=== PATIENT | female | born 1965 | race Caucasian/White ===

== ENCOUNTER 2019-01-04 21:30 | Inpatient (IN) | payer MEDICAID, OTHER ==
[2019-01-04] MEDS ORDERED: ALBUTEROL SULFATE 0.083% NEB 2.5 MG/3 ML AMPUL NEB ONE ×2 (21:38)
[2019-01-04] MEDS ORDERED: MAGNESIUM SULFATE/D5W 1 GM/100 ML RTUPB IV ONE (21:42)
--- NOTE | 2019-01-04 21:45 | ER Document Report ---
ED General - General Stated Complaint: RESPIRATORY DISTRESS Time Seen by Provider: 01/04/19 21:42 Mode of Arrival: Medic Information source: Patient, Relative, Emergency Med Personnel Notes: 53-year-old female with hypertension, COPD, coronary artery disease, type 2 diabetes presents via EMS in respiratory distress. EMS reports upon their arrival patient had an O2 saturation of 56%. Patient did receive 3 breathing treatments, 125 mg of Solu-Medrol and 2 g of magnesium prior to arrival. EMS did attempt to place patient on BiPAP but she was not tolerant of this. She does report a new productive cough with green-yellow sputum. - HPI Onset: Just prior to arrival Onset/Duration: Sudden Quality of pain: No pain Severity: None Pain Level: Denies Associated symptoms: Productive cough, Shortness of breath. denies: Chest pain, Leg swelling, Nausea Exacerbated by: Walking, Coughing Relieved by: Denies Similar symptoms previously: Yes Recently seen / treated by doctor: No - Related Data Allergies/Adverse Reactions: levothyroxine sodium [From Synthroid] Allergy (Verified 06/01/13 07:45) methotrexate [Methotrexate] Allergy (Verified 06/01/13 07:45) yellow dye [Yellow Dye] Allergy (Verified 06/01/13 07:45) azithromycin [Azithromycin] Adverse Reaction (Verified 06/01/13 07:45) Past Medical History - General Information source: Patient, [facility] Records - Social History Smoking Status: Current Every Day Smoker Cigarette use (# per day): Yes - 10 Smoking Education Provided: Yes - Smoking cessation counseling was provided for 4 minutes at the bedside Frequency of alcohol use: None Drug Abuse: None Lives with: Spouse/Significant other Family History: Arthritis, CAD, CVA, DM, Hyperlipidemia, Hypertension, Malignancy, Thyroid Disfunction - Past Medical History Cardiac Medical History: Reports: Hx Coronary Artery Disease, Hx DVT, Hx Hypertension Denies: Hx Heart Attack Pulmonary Medical History: Reports: Hx Asthma, Hx COPD Denies: Hx Bronchitis, Hx Pneumonia, Hx Tuberculosis Neurological Medical History: Reports: Hx Migraine. Denies: Hx Cerebrovascular Accident, Hx Seizures Endocrine Medical History: Reports: Hx Diabetes Mellitus Type 2, Hx Hypothyroidism GI Medical History: Reports: Hx Gastroesophageal Reflux Disease Musculoskeletal Medical History: Denies Hx Arthritis, Reports Hx Musculoskeletal Deformity - scoliosis, Reports Hx Musculoskeletal Trauma Psychiatric Medical History: Reports: Hx Anxiety, Hx Bipolar Disorder, Hx Depression, Hx Obsessive Compulsive Disorder Traumatic Medical History: Reports: Hx Fractures Past Surgical History: Reports: Hx Abdominal Surgery, Hx Section - x 2, Hx Cholecystectomy, Hx Oral Surgery, Hx Tubal Ligation. Denies: Hx Pacemaker - Immunizations Immunizations up to date: No Hx Diphtheria, Pertussis, Tetanus Vaccination: No Review of Systems - Review of Systems Notes: REVIEW OF SYSTEMS: CONSTITUTIONAL : Denies fever, chills, or sweats. Denies recent illness. Denies weight loss, recent hospitalizations. EENT: Denies visual changes, eye pain. Denies sore throat, oral lesions, difficulty swallowing. CARDIOVASCULAR: Denies chest pain. Denies palpitations. Denies lower extremity edema. RESPIRATORY: + cough. + shortness of breath, + wheezing. GASTROINTESTINAL: Denies abdominal pain or distention. Denies nausea, vomiting, or diarrhea. Denies blood in vomitus, stools, or per rectum. Denies black, tarry stools. Denies constipation. GENITOURINARY: Denies difficulty urinating, painful urination, frequency, blood in urine, or vaginal discharge. MUSCULOSKELETAL: Denies back or neck pain or stiffness. Denies joint pain or swelling. SKIN: Denies rash, lesions or sores. HEMATOLOGIC : Denies easy bruising or bleeding. LYMPHATIC: Denies swollen glands. NEUROLOGICAL: Denies confusion or altered mental status. Denies loss of consciousness. Denies dizziness or lightheadedness. Denies headache. Denies weakness or paralysis. Denies problems difficulty with ambulation, slurred speech. Denies sensory loss, numbness, or tingling. Denies seizures. PSYCHIATRIC: Denies anxiety or stress. Denies depression, suicidal ideation, or homicidal ideation. Denies visual or auditory hallucinations. Physical Exam - Vital signs Vitals: Pulse Ox 88 L 01/04/19 21:34 - Notes Notes: PHYSICAL EXAMINATION: GENERAL: Well-appearing, well-nourished and in no acute distress. HEAD: Atraumatic, normocephalic. EYES: Pupils equal round and reactive to light, extraocular movements intact, conjunctiva are normal. ENT: Nares patent, oropharynx clear without exudates. Moist mucous membranes. NECK: Normal range of motion, supple without lymphadenopathy LUNGS: Increased work of breathing, accessory muscle use, on BiPAP, diffuse wheezing in all lung gutierrez. HEART: Regular rate and rhythm without murmurs ABDOMEN: Soft, nontender, nondistended abdomen. No guarding, no rebound. No masses appreciated. Female : deferred Musculoskeletal: Normal range of motion, no pitting or edema. No cyanosis. NEUROLOGICAL: Cranial nerves grossly intact. Normal speech, normal gait. Normal sensory, motor exams PSYCH: Normal mood, normal affect. SKIN: Warm, Dry, normal turgor, no rashes or lesions noted. Course - Re-evaluation Re-evalutation: 01/05/19 01:54 Laboratory 01/04/19 01/04/19 01/04/19 22:10 22:10 22:10 WBC 6.9 RBC 4.91 Hgb 14.9 Hct 44.5 MCV 91 MCH 30.4 MCHC 33.5 RDW 13.1 Plt Count 469 H Seg Neutrophils % 67.6 Lymphocytes % 17.4 Monocytes % 14.8 H Eosinophils % 0.0 Basophils % 0.2 Absolute Neutrophils 4.7 Absolute Lymphocytes 1.2 Absolute Monocytes 1.0 Absolute Eosinophils 0.0 Absolute Basophils 0.0 Carbonic Acid HCO3/H2CO3 Ratio ABG pH ABG pCO2 ABG pO2 ABG HCO3 ABG Total CO2 ABG O2 Saturation ABG Base Excess FiO2 Sodium 135.9 L Potassium 3.9 Chloride 88 L Carbon Dioxide 38 H Anion Gap 10 BUN 22 H Creatinine 0.67 Est GFR ( Amer) > 60 Est GFR (Non-Af Amer) > 60 Glucose 124 H Calcium 8.5 Total Bilirubin 0.9 Direct Bilirubin 0.5 H Neonat Total Bilirubin Not Reportable Neonat Direct Bilirubin Not Reportable Neonat Indirect Bili Not Reportable AST 15 ALT 18 Alkaline Phosphatase 83 Creatine Kinase 79 CK-MB (CK-2) 1.23 Troponin I 0.030 NT-Pro-B Natriuret Pep 92202 H Total Protein 6.8 Albumin 3.4 L Urine Color Urine Appearance Urine pH Ur Specific Horn[place] Urine Protein Urine Glucose (UA) Urine Ketones Urine Blood Urine Nitrite Urine Bilirubin Urine Urobilinogen Ur Leukocyte Esterase Urine WBC (Auto) Urine RBC (Auto) U Hyaline Cast (Auto) Squamous Epi Cells Auto Urine Mucus (Auto) Urine Ascorbic Acid 01/04/19 01/05/19 22:24 00:25 WBC RBC Hgb Hct MCV MCH MCHC RDW Plt Count Seg Neutrophils % Lymphocytes % Monocytes % Eosinophils % Basophils % Absolute Neutrophils Absolute Lymphocytes Absolute Monocytes Absolute Eosinophils Absolute Basophils Carbonic Acid 1.97 H HCO3/H2CO3 Ratio 20:1 ABG pH 7.40 ABG pCO2 65.6 H ABG pO2 64.3 L ABG HCO3 39.4 H ABG Total CO2 41.5 H ABG O2 Saturation 91.8 L ABG Base Excess 10.7 FiO2 70% Sodium Potassium Chloride Carbon Dioxide Anion Gap BUN Creatinine Est GFR ( Amer) Est GFR (Non-Af Amer) Glucose Calcium Total Bilirubin Direct Bilirubin Neonat Total Bilirubin Neonat Direct Bilirubin Neonat Indirect Bili AST ALT Alkaline Phosphatase Creatine Kinase CK-MB (CK-2) Troponin I NT-Pro-B Natriuret Pep Total Protein Albumin Urine Color YELLOW Urine Appearance SLIGHTLY-CLOUDY Urine pH 5.0 Ur Specific [place] 1.020 Urine Protein NEGATIVE Urine Glucose (UA) NEGATIVE Urine Ketones NEGATIVE Urine Blood SMALL H Urine Nitrite NEGATIVE Urine Bilirubin NEGATIVE Urine Urobilinogen 2.0 H Ur Leukocyte Esterase NEGATIVE Urine WBC (Auto) 4 Urine RBC (Auto) 3 U Hyaline Cast (Auto) 39 Squamous Epi Cells Auto 1 Urine Mucus (Auto) FEW Urine Ascorbic Acid NEGATIVE Chest X-Ray 01/04/19 21:37 IMPRESSION: No evidence of acute cardiopulmonary disease. Temp Pulse Resp BP Pulse Ox 98.6 F 24 H 127/85 H 92 01/04/19 21:37 01/05/19 00:50 01/05/19 00:50 01/05/19 00:50 53-year-old female with COPD presents via EMS in respiratory distress. Per EMS patient was found with an O2 saturation of 56%. Patient does report a new productive cough. She does continue to smoke. Denies any history of heart failure. Vital signs reviewed upon arrival and patient is hypoxic, tachypneic. Patient has diffuse expiratory wheezing and diminished breath sounds in the lower lung gutierrez. Patient was placed on BiPAP and continuous nebulizer treatments were performed. Bedside ultrasound was performed and showed no pericardial effusion but did show diffuse B-lines indicative of interstitial edema. Diuresis was initiated with 40 mg of IV Lasix. Patient was placed on our BiPAP and Nitropaste was placed. On reevaluation patient is breathing more comfortably. She is able to speak in full sentences now. CBC is without leukocytosis or anemia. CMP shows no electrolyte abnormalities. BNP is 14,000. ABG shows hypoxia, hypercapnia. Patient will be admitted to the IMCU by Dr. Mackay for new onset congestive heart failure with respiratory failure. 01/05/19 01:58 - Vital Signs Vital signs: Temp Pulse Resp BP Pulse Ox 98.6 F 24 H 127/85 H 92 01/04/19 21:37 01/05/19 00:50 01/05/19 00:50 01/05/19 00:50 - Laboratory Result Diagrams: 01/04/19 22:10 01/04/19 22:10 Laboratory results interpreted by me: 01/04/19 01/04/19 01/04/19 22:10 22:10 22:10 Plt Count 469 H Monocytes % 14.8 H Carbonic Acid ABG pCO2 ABG pO2 ABG HCO3 ABG Total CO2 ABG O2 Saturation Sodium 135.9 L Chloride 88 L Carbon Dioxide 38 H BUN 22 H Glucose 124 H Direct Bilirubin 0.5 H NT-Pro-B Natriuret Pep 55156 H Albumin 3.4 L Urine Blood Urine Urobilinogen 01/04/19 01/05/19 22:24 00:25 Plt Count Monocytes % Carbonic Acid 1.97 H ABG pCO2 65.6 H ABG pO2 64.3 L ABG HCO3 39.4 H ABG Total CO2 41.5 H ABG O2 Saturation 91.8 L Sodium Chloride Carbon Dioxide BUN Glucose Direct Bilirubin NT-Pro-B Natriuret Pep Albumin Urine Blood SMALL H Urine Urobilinogen 2.0 H - Diagnostic Test Radiology reviewed: Image reviewed, Reports reviewed - EKG Interpretation by Me EKG shows normal: Sinus rhythm Rate: Tachycardia Rhythm: NSR When compared to previous EKG there are: Previous EKG unavailable Critical Care Note - Critical Care Note Total time excluding time spent on procedures (mins): 35 - Minutes of critical care time spent in direct contact evaluating and reevaluating the patient, treating symptoms, reviewing labs and studies and speaking with family and consultants excluding any procedures Discharge - Discharge Clinical Impression: New onset of congestive heart failure, Tobacco dependence, Acute respiratory failure with hypoxia and hypercapnia Acute respiratory failure Qualifiers: Respiratory failure complication: hypoxia Qualified Code(s): J96.01 - Acute respiratory failure with hypoxia COPD (chronic obstructive pulmonary disease) Qualifiers: COPD type: unspecified COPD Qualified Code(s): J44.9 - Chronic obstructive pulmonary disease, unspecified Condition: Fair Disposition: ADMITTED INPATIENT Admitting Provider: Codie (Hospitalist) Unit Admitted: IMCU
--- NOTE | 2019-01-04 22:20 | RADIOLOGY REPORT (SQ) ---
EXAM DESCRIPTION: XR CHEST 1 VIEW COMPLETED DATE/TME: 01/04/2019 21:37 CLINICAL HISTORY: 53 years, Female, respiratory distress COMPARISON: None. EXAM DESCRIPTION: CLINICAL HISTORY: respiratory distress COMPARISON: None. FINDINGS: Single view of the chest is submitted. Cardiac silhouette is normal. There is atelectasis at the left lung base with no definite consolidation. The right lung is clear. No acute bony abnormality. There is no significant pulmonary vascular engorgement. IMPRESSION: No evidence of acute cardiopulmonary disease.
[2019-01-04 22:41] LABS: ABSOLUTE LYMPHOCYTES (AUTO) 1.2 10^3/uL (0.5-4.7); ABSOLUTE NEUT (AUTO) 4.7 10^3/uL (1.7-8.2); BASOPHILS % (AUTO) 0.2 % (0-2); HEMATOCRIT 44.5 % (36.0-47.0); HEMOGLOBIN 14.9 g/dL (12.0-15.5); LYMPHOCYTES % (AUTO) 17.4 % (13-45); MEAN CORPUSCULAR HEMOGLOBIN 30.4 pg (27.0-33.4); MEAN CORPUSCULAR HGB CONC 33.5 g/dL (32.0-36.0); MEAN CORPUSCULAR VOLUME 91 fl (80-97); MONOCYTES % (AUTO) 14.8 % (3-13); PLATELET COUNT 469 10^3/uL (150-450); RED BLOOD COUNT 4.91 10^6/uL (3.72-5.28); RED CELL DISTRIBUTION WIDTH 13.1 % (11.5-14.0); SEGMENTED NEUTROPHILS % (AUTO) 67.6 % (42-78); TOTAL CELLS COUNTED % (AUTO) 100 %; WHITE BLOOD COUNT 6.9 10^3/uL (4.0-10.5)
[2019-01-04 22:59] LABS: ARTERIAL BLOOD BASE EXCESS 10.7 mmol/L; ARTERIAL BLOOD H2CO3 1.97 mmol/L (1.05-1.35); ARTERIAL BLOOD HCO3 39.4 mmol/L (20-24); ARTERIAL BLOOD O2 SATURATION 91.8 % (94-98); ARTERIAL BLOOD PCO2 65.6 mmHg (35-45); ARTERIAL BLOOD PO2 64.3 mmHg (80-100); ARTERIAL BLOOD TOTAL CO2 41.5 mmol/L (21-25)
[2019-01-04 23:00] LABS: ARTERIAL BLOOD FIO2 70%
[2019-01-04 23:02] LABS: ALANINE AMINOTRANSFERASE 18 U/L (9-52); ALBUMIN 3.4 g/dL (3.5-5.0); ALKALINE PHOSPHATASE 83 U/L (38-126); ANION GAP 10 (5-19); ASPARTATE AMINO TRANSFERASE 15 U/L (14-36); BILIRUBIN,DIRECT 0.5 mg/dL (0.0-0.4); BILIRUBIN,TOTAL 0.9 mg/dL (0.2-1.3); BLOOD UREA NITROGEN 22 mg/dL (7-20); CALCIUM 8.5 mg/dL (8.4-10.2); CARBON DIOXIDE 38 mmol/L (22-30); CHLORIDE 88 mmol/L (98-107); CREATINE KINASE 79 U/L (30-135); GLUCOSE 124 mg/dL (75-110); POTASSIUM 3.9 mmol/L (3.6-5.0); SODIUM 135.9 mmol/L (137-145); TOTAL PROTEIN 6.8 g/dL (6.3-8.2)
[2019-01-04 23:14] LABS: CREATINE KINASE MB 1.23 ng/mL (<4.55); TROPONIN I 0.03 ng/mL
--- NOTE | 2019-01-04 23:28 | EKG REPORT ---
SEVERITY:- ABNORMAL ECG - SINUS TACHYCARDIA LOW VOLTAGE THROUGHOUT BORDERLINE R WAVE PROGRESSION, ANTERIOR LEADS NONSPECIFIC T ABNORMALITIES, DIFFUSE LEADS : Confirmed by: John Soler 04-Jan-2019 23:28:03
[2019-01-05] MEDS ORDERED: NITROGLYCERIN 2% OINTMENT 1 GM PACKET TP ONE (00:03)
[2019-01-05] MEDS ORDERED: FUROSEMIDE INJ/PF 40 MG/4 ML SDV IV ONE (00:03)
[2019-01-05] MEDS ORDERED: MAG HYDROX/AL HYDROX/SIMETH SUSP 30 ML UDCUP PO PRN (00:31)
[2019-01-05] MEDS ORDERED: ONDANSETRON HCL INJ/PF 4 MG/2 ML SDV IV PRN (00:31)
[2019-01-05] MEDS ORDERED: TEMAZEPAM 15 MG CAPSULE PO PRN (00:31)
[2019-01-05] MEDS ORDERED: LEVALBUTEROL HCL NEB 1.25 MG/3 ML AMPUL NEB PRN (00:31)
[2019-01-05] MEDS ORDERED: MAGNESIUM HYDROXIDE SUSP 30 ML UDCUP PO PRN (00:31)
[2019-01-05] MEDS ORDERED: NICOTINE 21 MG/24 HR PATCH.TD24 TD PRN (00:41)
[2019-01-05] MEDS ORDERED: ACETAMINOPHEN 325 MG TABLET PO PRN (00:41)
[2019-01-05] MEDS ORDERED: MORPHINE SULFATE 10 MG/ML INJ IV PRN ×4 (00:41→00:52)
[2019-01-05 01:10] LABS: APPEARANCE,URINE SLIGHTLY-CLOUDY; BILIRUBIN,URINE NEGATIVE (NEGATIVE); COLOR,URINE YELLOW; GLUCOSE, URINE NEGATIVE (NEGATIVE); KETONES,URINE NEGATIVE (NEGATIVE); LEUKOCYTE ESTERASE,URINE NEGATIVE (NEGATIVE); NITRITE,URINE NEGATIVE (NEGATIVE); PROTEIN,URINE NEGATIVE (NEGATIVE)
[2019-01-05 03:38] LABS: ARTERIAL BLOOD BASE EXCESS 12.1 mmol/L; ARTERIAL BLOOD H2CO3 1.88 mmol/L (1.05-1.35); ARTERIAL BLOOD HCO3 39.6 mmol/L (20-24); ARTERIAL BLOOD O2 SATURATION 92.9 % (94-98); ARTERIAL BLOOD PCO2 62.4 mmHg (35-45); ARTERIAL BLOOD PH 7.42 (7.35-7.45); ARTERIAL BLOOD PO2 66.4 mmHg (80-100); ARTERIAL BLOOD TOTAL CO2 41.5 mmol/L (21-25)
[2019-01-05 03:41] LABS: ARTERIAL BLOOD FIO2 80%
[2019-01-05] MEDS: HEPARIN SOD (PORCINE) 5,000 UNIT/ML 1 ML SYRINGE SUBCUT SCH ×3 (06:09→21:53)
--- NOTE | 2019-01-05 06:49 | PDOC H&P ---
History of Present Illness Admission Date/PCP: 01/05/2019 No PCP Patient complains of: Dyspnea History of Present Illness: TRISTA ESTRELLA is a 53 year old female who presented to the emergency room with a 1 week history of dyspnea. Patient states that her dyspnea began 1 week prior to her admission and was relatively mild but then approximately 1 day ago she noted the onset of moderate to severe orthopnea and a mild to moderate occasional cough productive of small amounts of yellowish-green mucus. Her dyspnea was worsened by activity and alleviated in part by rest, she denies prior similar episodes. Over the course of the day and evening prior to admission her dyspnea rapidly worsened and became severe. EMS was summoned and found her to have an O2 sat of 70% on their arrival. She was treated with supplemental oxygen, albuterol nebulizers as well as IV Solu-Medrol in the ambu [place] on the way to the hospital. Upon arrival in the emergency room the patient was evaluated and found to have a chest x-ray consistent with congestive heart failure as well as a BNP of 14,000. Patient was treated with nitroglycerin paste, intravenous Lasix and BiPAP with significant improvement in her overall status. She was subsequently admitted to the [facility] for further evaluation and treatment. Past Medical History Cardiac Medical History: Reports: Coronary Artery Disease, DVT, Hypertension Denies: Myocardial Infarction Pulmonary Medical History: Reports: Asthma, Chronic Obstructive Pulmonary Disease (COPD) Denies: Bronchitis, Pneumonia, Respiratory Failure, Tuberculosis EENT Medical History: Denies: Cataracts Neurological Medical History: Reports: Migraine Denies: Hemorrhagic CVA, Ischemic CVA, Seizures Endocrine Medical History: Reports: Diabetes Mellitus Type 2, Hypothyroidism, Obesity Denies: Diabetes Mellitus Type 1, Hyperthyroidism Renal/ Medical History: Denies: Chronic Kidney Disease, Nephrolithiasis Malignancy Medical History: Reports: None GI Medical History: Reports: Gastroesophageal Reflux Disease Denies: Cirrhosis, Hepatitis Musculoskeltal Medical History: Denies: Arthritis, Gout Skin Medical History: Denies: Eczema, Psoriasis Psychiatric Medical History: Reports: Bipolar Disorder, Depression Denies: Alcohol Dependency, Substance Abuse, Tobacco Dependency Traumatic Medical History: Reports: None Hematology: Denies: Anemia, Bleeding Tendencies Infectious Medical History: Reports: None Past Surgical History Past Surgical History: Reports: Section - x 2, Cholecystectomy, Tubal Ligation Social History Information Source: Patient Lives with: Family, Spouse/Significant other Smoking Status: Current Every Day Smoker - History of being and extremely heavy smoker (2-1/2 to 3 packs/day) in the past smokes a little bit less now but has n ot been able to smoke for about 1 week due to her dyspnea. Frequency of Alcohol Use: None Hx Recreational Drug Use: No Drugs: None Hx Prescription Drug Abuse: No - Advance Directive Resuscitation Status: Full Code Surrogate healthcare decision maker:: Katie Clayton her daughter Family History Family History: Arthritis, CAD, CVA, DM, Hyperlipidemia, Hypertension, Malignancy, Thyroid Disfunction Parental Family History Reviewed: Yes Children Family History Reviewed: No Sibling(s) Family History Reviewed.: Yes Medication/Allergy Home Medications: Albuterol Sulfate [Ventolin HFA MDI 18 GM] 2 puff IH Q4H 04/21/13 Albuterol Sulfate [Ventolin Hfa] 2 puff IH Q4HP PRN #17 gm 04/21/13 Aripiprazole [Abilify 5 mg Tablet] 5 mg PO BID 04/21/13 Escitalopram Oxalate [Lexapro] 40 mg PO DAILY 04/21/13 Famotidine [Pepcid 10 mg Tablet] 10 mg PO DAILY 04/21/13 Fluticasone/Salmeterol [Advair 100-50 Diskus 28 Dose] 1 inh IH Q12H 04/21/13 Chlorhexidine Gluconate [Peridex 0.12% Oral Rinse 473 ml] 15 ml MM BID #1 bottle 06/01/13 Metoprolol Succinate [Toprol Xl 50 mg Tab.sr] 50 mg PO BID 09/30/13 Ibuprofen [Motrin 800 mg Tablet] 1 tab PO ASDIR PRN 10/18/13 Oxycodone HCl/Acetaminophen [Percocet 5-325 mg Tablet] 1 tab PO ASDIR PRN 10/18/13 Promethazine HCl [Phenergan 25 mg Tablet] 25 mg PO ASDIR PRN 10/18/13 Allergies/Adverse Reactions: levothyroxine sodium [From Synthroid] Allergy (Verified 06/01/13 07:45) methotrexate [Methotrexate] Allergy (Verified 06/01/13 07:45) yellow dye [Yellow Dye] Allergy (Verified 06/01/13 07:45) azithromycin [Azithromycin] Adverse Reaction (Verified 06/01/13 07:45) Review of Systems Constitutional: ABSENT: chills, fever(s) Eyes: ABSENT: visual disturbances, other - Eye pain Ears: ABSENT: hearing changes, other - Ear pain Nose, Mouth, and Throat: ABSENT: mouth pain, sore throat Cardiovascular: PRESENT: as per HPI, dyspnea on exertion, orthropnea. ABSENT: chest pain, edema, palpitations Respiratory: PRESENT: as per HPI, cough, dyspnea, sputum. ABSENT: hemoptysis Gastrointestinal: ABSENT: abdominal pain, constipation, diarrhea, nausea, vomiting Genitourinary: ABSENT: dysuria, hematuria Musculoskeletal: ABSENT: back pain, joint swelling, muscle weakness Integumentary: ABSENT: pruritus, rash Neurological: ABSENT: confusion, convulsions, focal weakness, memory loss, syncope Psychiatric: ABSENT: anxiety, depression Endocrine: ABSENT: cold intolerance, heat intolerance Hematologic/Lymphatic: ABSENT: easy bleeding, easy bruising Physical Exam Vital Signs: Temp Pulse Resp BP Pulse Ox 98.6 F 42 H 92 01/04/19 21:37 01/04/19 21:40 01/04/19 21:40 Intake & Output 01/03/19 01/04/19 01/05/19 23:59 23:59 23:59 Intake Total 100 Balance 100 Weight 83.9 kg General appearance: PRESENT: no acute distress, cooperative, morbidly obese, other - On BiPAP Head exam: PRESENT: atraumatic, normocephalic Eye exam: ABSENT: conjunctival injection, scleral icterus Ear exam: PRESENT: normal external ear exam. ABSENT: bleeding, drainage Mouth exam: PRESENT: dry mucosa, neck supple Neck exam: PRESENT: JVD. ABSENT: thyromegaly, tracheal deviation Respiratory exam: PRESENT: accessory muscle use - Mild use of accessory muscles despite BiPAP, prolonged expiratory phas - Mildly prolonged expiratory phase all gutierrez, rales - Bilateral lower lung gutierrez with fine rales, symmetrical, tachypnea, wheezes - Mild end expiratory wheezes in all gutierrez, other - On BiPAP Cardiovascular exam: PRESENT: RRR. ABSENT: clicks, gallop, rubs Pulses: PRESENT: normal radial pulses, normal dorsalis pedis pul Vascular exam: PRESENT: normal capillary refill. ABSENT: pallor GI/Abdominal exam: PRESENT: normal bowel sounds, soft Rectal exam: PRESENT: deferred Extremities exam: PRESENT: +1 edema - Bilateral 1+ pitting edema of the pretibial surfaces.. ABSENT: pedal edema, tenderness Musculoskeletal exam: ABSENT: deformity, dislocation Neurological exam: PRESENT: alert, oriented to person, oriented to place, oriented to time, CN II-XII grossly intact. ABSENT: motor sensory deficit Psychiatric exam: PRESENT: appropriate affect, normal mood Skin exam: PRESENT: dry, intact, warm. ABSENT: jaundice, rash, urticaria Results Laboratory Results: 01/04/19 22:10 01/04/19 22:10 01/04/19 01/04/19 01/04/19 22:10 22:10 22:24 WBC 6.9 RBC 4.91 Hgb 14.9 Hct 44.5 MCV 91 MCH 30.4 MCHC 33.5 RDW 13.1 Plt Count 469 H Seg Neutrophils % 67.6 Lymphocytes % 17.4 Monocytes % 14.8 H Eosinophils % 0.0 Basophils % 0.2 Absolute Neutrophils 4.7 Absolute Lymphocytes 1.2 Absolute Monocytes 1.0 Absolute Eosinophils 0.0 Absolute Basophils 0.0 Carbonic Acid 1.97 H HCO3/H2CO3 Ratio 20:1 ABG pH 7.40 ABG pCO2 65.6 H ABG pO2 64.3 L ABG HCO3 39.4 H ABG O2 Saturation 91.8 L ABG Base Excess 10.7 FiO2 70% Sodium 135.9 L Potassium 3.9 Chloride 88 L Carbon Dioxide 38 H Anion Gap 10 BUN 22 H Creatinine 0.67 Est GFR ( Amer) > 60 Est GFR (Non-Af Amer) > 60 Glucose 124 H Calcium 8.5 Total Bilirubin 0.9 AST 15 ALT 18 Alkaline Phosphatase 83 Total Protein 6.8 Albumin 3.4 L 01/04/19 01/04/19 22:10 22:10 Creatine Kinase 79 CK-MB (CK-2) 1.23 Troponin I 0.030 NT-Pro-B Natriuret Pep 53443 H Impressions: Chest X-Ray 01/04/19 21:37 IMPRESSION: No evidence of acute cardiopulmonary disease. Assessment and Plan - Diagnosis (1) Acute respiratory failure with hypoxia and hypercapnia Is this a current diagnosis for this admission?: Yes Plan: Patient has obvious COPD her acute problem resulting in respiratory failure seems to be primarily congestive heart failure. BiPAP will be continued and the pulmonary toilet will be used in addition to her treatment in order to also control her underlying COPD. (2) Acute congestive heart failure Qualifiers: Heart failure type: unspecified Qualified Code(s): I50.9 - Heart failure, unspecified Is this a current diagnosis for this admission?: Yes Plan: Patient's congestive heart failure will be treated with continuation of her metoprolol XL 50 mg p.o. twice daily and she will also receive intravenous Lasix 40 mg IV every 12 hours. For acute symptoms of dyspnea she will be treated with morphine sulfate 2 mg IV every hour as needed moderate to severe dyspnea. Additionally for pain she will use morphine sulfate 3 to 7.5 mg IV every 2 hours as needed on a sliding scale basis. (3) Hypertension Qualifiers: Hypertension type: essential hypertension Qualified Code(s): I10 - Essential (primary) hypertension Is this a current diagnosis for this admission?: Yes Plan: Patient will be continued on her usual antihypertensive regiment utilizing Toprol-XL 50 mg p.o. twice daily. Her doses of Toprol XL and additional medications will be added as appropriate for treatment of her hypertension and congestive heart failure. (4) Tobacco dependence Is this a current diagnosis for this admission?: Yes Plan: Smoking cessation is advised and counseled briefly. A Nicotine replacement patches developed with the patient if she desires to use it. (5) Morbid obesity with BMI of 40.0-44.9, adult Is this a current diagnosis for this admission?: Yes Plan: The patient will receive counseling from the registered dietitian for improve ment in her lifestyle choices to generate weight reduction and better control of her hypertension, congestive heart failure and diabetes which she reports. - Time Time Spent with patient: 25-34 minutes Smoking Cessation Education: 3 to 10 minutes Medications reviewed and adjusted accordingly: Yes Anticipated discharge: Home with Homehealth - Inpatient Certification Based on my medical assessment, after consideration of the patient's comorbidities, presenting symptoms, or acuity I expect that the services needed warrant INPATIENT care.: Yes I certify that my determination is in accordance with my understanding of Medicare's requirements for reasonable and necessary INPATIENT services [42 CFR 412.3e].: Yes Medical Necessity: Significant Comorbidiites Make Outpatient Treatment Too Risky, Need Close Monitoring Due to Risk of Patient Decompensation, Need For Continuous Telemetry Monitoring, Need for Nebulizer Therapy and Monitoring of Response, Risk of Complication if Not Cared For in Hospital
[2019-01-05] MEDS: BUDESONIDE NEB 0.5 MG/2 ML AMPUL NEB SCH ×2 (07:58→20:26)
[2019-01-05] MEDS: IPRATROPIUM BROMIDE 0.02% NEB 0.5 MG/2.5 ML AMPUL NEB SCH ×2 (07:58→16:02)
[2019-01-05] MEDS: LEVALBUTEROL HCL NEB 1.25 MG/3 ML AMPUL NEB SCH ×2 (07:59→16:02)
[2019-01-05 08:41] LABS: CREATINE KINASE MB 0.62 ng/mL (<4.55); TROPONIN I 0.025 ng/mL
[2019-01-05] MEDS: DOCUSATE SODIUM 100 MG CAPSULE PO SCH ×2 (09:20→17:00)
[2019-01-05] MEDS: FUROSEMIDE INJ/PF 40 MG/4 ML SDV IV SCH ×2 (09:20→21:53)
[2019-01-05] MEDS: ARIPIPRAZOLE 5 MG TABLET PO SCH ×2 (09:20→21:53)
[2019-01-05] MEDS: METOPROLOL SUCCINATE 50 MG TAB.SR.24H PO SCH ×2 (09:20→21:53)
[2019-01-05] MEDS: FAMOTIDINE 20 MG TABLET PO SCH ×2 (09:21→21:53)
[2019-01-05 13:08] LABS: ARTERIAL BLOOD BASE EXCESS 15.3 mmol/L; ARTERIAL BLOOD FIO2 80%; ARTERIAL BLOOD H2CO3 1.72 mmol/L (1.05-1.35); ARTERIAL BLOOD HCO3 41.7 mmol/L (20-24); ARTERIAL BLOOD O2 SATURATION 96.5 % (94-98); ARTERIAL BLOOD PCO2 57.3 mmHg (35-45); ARTERIAL BLOOD PH 7.48 (7.35-7.45); ARTERIAL BLOOD PO2 82.4 mmHg (80-100); ARTERIAL BLOOD TOTAL CO2 43.5 mmol/L (21-25)
--- NOTE | 2019-01-05 14:59 | Progress Note ---
Provider Note Provider Note: Patient was comfortable on BiPAP. Was sitting up, breathing was unlabored. Receiving diuretics, will monitor response and adjust accordingly. Nurse called to [place] and the patient was looking yellow. Initial labs were fairly unremarkable, but a repeat liver panel has been ordered.
[2019-01-05 15:02] LABS: ALANINE AMINOTRANSFERASE 16 U/L (9-52); ALBUMIN 2.9 g/dL (3.5-5.0); ALKALINE PHOSPHATASE 67 U/L (38-126); ANION GAP 11 (5-19); ASPARTATE AMINO TRANSFERASE 11 U/L (14-36); BILIRUBIN,DIRECT 0.4 mg/dL (0.0-0.4); BILIRUBIN,TOTAL 0.6 mg/dL (0.2-1.3); BLOOD UREA NITROGEN 21 mg/dL (7-20); CALCIUM 8.3 mg/dL (8.4-10.2); CARBON DIOXIDE 38 mmol/L (22-30); CHLORIDE 89 mmol/L (98-107); GLUCOSE 170 mg/dL (75-110); POTASSIUM 3.9 mmol/L (3.6-5.0); TOTAL PROTEIN 6.1 g/dL (6.3-8.2)
[2019-01-05 16:54] LABS: CREATINE KINASE MB 0.4 ng/mL (<4.55); TROPONIN I 0.023 ng/mL
--- NOTE | 2019-01-05 18:13 | XCELERA REPORT ---
[address] [address] Transthoracic Echocardiogram Report Name: TRISTA ESTRELLA Age: 53 yrs Gender: Female : 1965 Patient Status: Inpatient Patient Location: [address] [place] [address] Study Date: 01/05/2019 09:03 AM Procedure: A two-dimensional transthoracic echocardiogram with color flow Doppler was performed. Study Quality: Technically suboptimal. The study was technically difficult with many images being suboptimal in quality. Reason For Study: Acute new onset CHF History: CHF. Ordering Physician: TIESHA BEAVER Performed By: Sahara Keating Interpretation Summary Pro bably no LVH.LVEF appears to be Greater than 65%.Probably no wall motion abnormality .Probably no and no AR.No MS and probably no MR. The left ventricle is normal in size. Doppler measurements suggest impaired left ventricular relaxation, which is associated with grade I/IV or mild diastolic dysfunction The right ventricle is not well visualized secondary to technical limitations Right atrium not well visualized secondary to technical limitations The left atrial size is normal. There is a trace amount of tricuspid regurgitation Right ventricular systolic pressure is normal. RVSP is 23 to 28 mm of Hg , with RA mean of 5 to 10. There is no pericardial effusion. MMode/2D Measurements & Calculations RVDd: 3.2 cm LVIDd: 3.8 cm FS: 28.2 % Ao root diam: 2.6 cm IVSd: 0.61 cm LVIDs: 2.7 cm EDV(Teich): 60.7 ml Ao root area: 5.2 cm2 LVPWd: 0.71 cm ESV(Teich): 27.1 ml EF(Teich): 55.3 % Doppler Measurements & Calculations MV E max coleman: MV dec slope: Ao V2 max: LV V1 max P.3 cm/sec 122.0 cm/sec 2.9 mmHg MV A max coleman: 599.0 cm/sec2 Ao max PG: LV V1 max: 82.8 cm/sec MV dec time: 0.10 sec 5.9 mmHg 85.4 cm/sec MV E/A: 0.73 PA V2 max: TR max coleman: 110.0 cm/sec 214.7 cm/sec PA max P.8 mmHg TR max P.4 mmHg Left Ventricle Pro bably no LVH.LVEF appears to be Greater than 65%.Probably no wall motion abnormality .Probably no and no AR.No MS and probably no MR. The left ventricle is normal in size. Doppler measurements suggest impaired left ventricular relaxation, which is associated with grade I/IV or mild diastolic dysfunction. Right Ventricle The right ventricle is not well visualized secondary to technical limitations. Atria Right atrium not well visualized secondary to technical limitations. The left atrial size is normal. Tricuspid Valve There is a trace amount of tricuspid regurgitation. Right ventricular systolic pressure is normal. RVSP is 23 to 28 mm of Hg , with RA mean of 5 to 10. Effusions There is no pericardial effusion. : TIESHA BEAVER Lakshmi
[2019-01-06] MEDS: IPRATROPIUM BROMIDE 0.02% NEB 0.5 MG/2.5 ML AMPUL NEB SCH ×3 (00:27→15:40)
[2019-01-06] MEDS: LEVALBUTEROL HCL NEB 1.25 MG/3 ML AMPUL NEB SCH ×3 (00:27→15:39)
[2019-01-06] MEDS: HEPARIN SOD (PORCINE) 5,000 UNIT/ML 1 ML SYRINGE SUBCUT SCH ×3 (05:22→21:09)
[2019-01-06 06:28] LABS: HEMOGLOBIN 13.5 g/dL (12.0-15.5); MEAN CORPUSCULAR HEMOGLOBIN 30.1 pg (27.0-33.4); MEAN CORPUSCULAR HGB CONC 33.7 g/dL (32.0-36.0); MEAN CORPUSCULAR VOLUME 90 fl (80-97); PLATELET COUNT 371 10^3/uL (150-450); RED BLOOD COUNT 4.47 10^6/uL (3.72-5.28); RED CELL DISTRIBUTION WIDTH 13.4 % (11.5-14.0); WHITE BLOOD COUNT 7.6 10^3/uL (4.0-10.5)
[2019-01-06 07:04] LABS: FREE T3 2.51 pg/mL (2.77-5.27); FREE T4 (FREE THYROXINE) 1.62 ng/dL (0.78-2.19)
[2019-01-06 07:18] LABS: THYROID STIMULATING HORMONE 1.05 uIU/mL (0.47-4.68)
[2019-01-06] MEDS: BUDESONIDE NEB 0.5 MG/2 ML AMPUL NEB SCH ×2 (08:07→20:03)
[2019-01-06 08:14] LABS: BLOOD UREA NITROGEN 29 mg/dL (7-20); CALCIUM 8.4 mg/dL (8.4-10.2); CHLORIDE 85 mmol/L (98-107); CHOLESTEROL 90.66 mg/dL (0-200); DIRECT LDL 55 mg/dL (<100); GLUCOSE 102 mg/dL (75-110); POTASSIUM 3.9 mmol/L (3.6-5.0); SODIUM 136.3 mmol/L (137-145); TRIGLYCERIDES 87 mg/dL (<150)
[2019-01-06 08:15] LABS: ANION GAP 12 (5-19); CARBON DIOXIDE 39 mmol/L (22-30)
[2019-01-06] MEDS: METOPROLOL SUCCINATE 50 MG TAB.SR.24H PO SCH ×2 (11:04→21:09)
[2019-01-06] MEDS: ARIPIPRAZOLE 5 MG TABLET PO SCH ×3 (11:04→21:09)
[2019-01-06] MEDS: DOCUSATE SODIUM 100 MG CAPSULE PO SCH ×2 (11:04→18:44)
[2019-01-06] MEDS: FAMOTIDINE 20 MG TABLET PO SCH ×2 (11:04→21:09)
[2019-01-06] MEDS: FUROSEMIDE INJ/PF 40 MG/4 ML SDV IV SCH ×2 (11:04→21:09)
--- NOTE | 2019-01-06 16:03 | PDOC PROGRESS REPORT ---
Subjective Progress Note for:: 01/06/19 Subjective:: No adverse events overnight. No new complaints. Vital signs been stable. She still on BiPAP but her FiO2 was less than it was yesterday. She looks like she is breathing more comfortably. Apparently when she comes off BiPAP to take her medications her oxygen saturations will drop below 90%. Reason For Visit: ACUTE CONGESTIVE HEART FAILURE Physical Exam Vital Signs: Temp Pulse Resp BP Pulse Ox 98.2 F 87 20 126/72 H 95 01/06/19 12:04 01/06/19 12:04 01/06/19 12:04 01/06/19 12:04 01/06/19 12:04 Intake & Output 01/05/19 01/06/19 01/07/19 06:59 06:59 06:59 Intake Total 200 350 Output Total 775 1075 Balance -575 -725 Weight 80.9 kg 80.1 kg General appearance: PRESENT: no acute distress, cooperative, disheveled, morbidly obese Respiratory exam: PRESENT: crackles - Bibasilar, decreased breath sounds, symmetrical, unlabored. ABSENT: accessory muscle use, prolonged expiratory phas, rhonchi, tachypnea, wheezes Cardiovascular exam: PRESENT: RRR, +S1, +S2 Pulses: PRESENT: normal carotid pulses Vascular exam: PRESENT: normal capillary refill GI/Abdominal exam: PRESENT: normal bowel sounds, soft. ABSENT: distended, guarding, rebound, tenderness Extremities exam: PRESENT: pedal edema - Trace, +1 edema. ABSENT: clubbing Musculoskeletal exam: PRESENT: normal inspection. ABSENT: deformity Neurological exam: PRESENT: alert, awake, oriented to person, oriented to place. ABSENT: oriented to time, oriented to situation Psychiatric exam: PRESENT: flat affect Skin exam: PRESENT: dry, warm Results Laboratory Results: 01/06/19 05:59 01/06/19 05:59 01/06/19 01/06/19 01/06/19 05:59 05:59 05:59 WBC 7.6 RBC 4.47 Hgb 13.5 Hct 40.0 MCV 90 MCH 30.1 MCHC 33.7 RDW 13.4 Plt Count 371 Sodium 136.3 L Potassium 3.9 Chloride 85 L Carbon Dioxide 39 H Anion Gap 12 BUN 29 H Creatinine 0.74 Est GFR ( Amer) > 60 Est GFR (Non-Af Amer) > 60 Glucose 102 Calcium 8.4 Magnesium 2.2 Triglycerides 87 Cholesterol 90.66 LDL Cholesterol Direct 55 VLDL Cholesterol 17.0 HDL Cholesterol 40 TSH 1.05 Free T4 1.62 Free T3 pg/mL 2.51 L 01/04/19 01/04/19 01/05/19 22:10 22:10 07:08 Creatine Kinase 79 59 CK-MB (CK-2) 1.23 Troponin I 0.030 NT-Pro-B Natriuret Pep [id number] H 01/05/19 01/05/19 01/05/19 07:08 15:23 15:23 Creatine Kinase 83 CK-MB (CK-2) 0.62 0.40 Troponin I 0.025 0.023 NT-Pro-B Natriuret Pep 01/06/19 05:59 Creatine Kinase CK-MB (CK-2) Troponin I NT-Pro-B Natriuret Pep 1950 H Impressions: Chest X-Ray 01/04/19 21:37 IMPRESSION: No evidence of acute cardiopulmonary disease. Assessment and Plan - Diagnosis (1) Acute congestive heart failure Qualifiers: Heart failure type: diastolic Qualified Code(s): I50.31 - Acute diastolic (congestive) heart failure Is this a current diagnosis for this admission?: Yes Plan: Echocardiogram shows a normal EF. 60%. Grade 1 diastolic dysfunction. No evidence of any valvular insufficiency. Normal RVSP. Not sure of the triggering event, possibly hypertension, but her blood pressures have been good here. Responding well to diuretics. (2) Acute respiratory failure Qualifiers: Respiratory failure complication: hypoxia Qualified Code(s): J96.01 - Acute respiratory failure with hypoxia Is this a current diagnosis for this admission?: Yes Plan: Continue BiPAP and supplemental O2 to maintain SPO2 greater than 90%. Anticipate we should be able to wean the oxygen today and tomorrow. (3) Morbid obesity with BMI of 40.0-44.9, adult Is this a current diagnosis for this admission?: Yes Plan: Strongly encouraged lifestyle modification. Based on my interactions with her, I am not certain how much of this she is going to be able to comprehend. - Time Time Spent with patient: 15-24 minutes
[2019-01-07] MEDS: IPRATROPIUM BROMIDE 0.02% NEB 0.5 MG/2.5 ML AMPUL NEB SCH ×3 (00:04→15:52)
[2019-01-07] MEDS: LEVALBUTEROL HCL NEB 1.25 MG/3 ML AMPUL NEB SCH ×3 (00:04→15:53)
[2019-01-07] MEDS: HEPARIN SOD (PORCINE) 5,000 UNIT/ML 1 ML SYRINGE SUBCUT SCH ×3 (05:11→21:22)
[2019-01-07 08:33] LABS: HEMATOCRIT 40.5 % (36.0-47.0); HEMOGLOBIN 13.6 g/dL (12.0-15.5); MEAN CORPUSCULAR HEMOGLOBIN 30.1 pg (27.0-33.4); MEAN CORPUSCULAR HGB CONC 33.7 g/dL (32.0-36.0); MEAN CORPUSCULAR VOLUME 89 fl (80-97); PLATELET COUNT 395 10^3/uL (150-450); RED BLOOD COUNT 4.52 10^6/uL (3.72-5.28); RED CELL DISTRIBUTION WIDTH 13.4 % (11.5-14.0); WHITE BLOOD COUNT 10.1 10^3/uL (4.0-10.5)
[2019-01-07] MEDS: BUDESONIDE NEB 0.5 MG/2 ML AMPUL NEB SCH ×2 (08:38→20:13)
[2019-01-07 09:00] LABS: BLOOD UREA NITROGEN 27 mg/dL (7-20); CALCIUM 8.2 mg/dL (8.4-10.2); CHLORIDE 80 mmol/L (98-107); GLUCOSE 86 mg/dL (75-110); POTASSIUM 3.7 mmol/L (3.6-5.0)
[2019-01-07] MEDS ORDERED: AMOXICILLIN TR/POT CLAVULANATE 500-125 MG TAB PO ONE (09:00)
[2019-01-07 09:10] LABS: ANION GAP 9 (5-19)
[2019-01-07 09:11] LABS: CARBON DIOXIDE 44 mmol/L (22-30)
[2019-01-07] MEDS: FAMOTIDINE 20 MG TABLET PO SCH ×2 (09:30→21:22)
[2019-01-07] MEDS: DOCUSATE SODIUM 100 MG CAPSULE PO SCH ×2 (09:30→17:25)
[2019-01-07] MEDS: ARIPIPRAZOLE 5 MG TABLET PO SCH ×2 (09:30→21:22)
[2019-01-07] MEDS: FUROSEMIDE INJ/PF 40 MG/4 ML SDV IV SCH (09:33)
[2019-01-07] MEDS ORDERED: PREDNISONE 20 MG TABLET PO ONE (11:30)
[2019-01-07] MEDS: METOPROLOL SUCCINATE 50 MG TAB.SR.24H PO SCH ×2 (12:03→21:22)
[2019-01-07] MEDS ORDERED: NYSTATIN CREAM 15 GM TP PRN (14:01)
[2019-01-07] MEDS ORDERED: ZINC OXIDE 20% OINTMENT 28.35 GM TP PRN (14:04)
[2019-01-07] MEDS: AMOXICILLIN TR/POT CLAVULANATE 500-125 MG TAB PO SCH ×2 (14:54→21:22)
--- NOTE | 2019-01-07 16:01 | PDOC PROGRESS REPORT ---
Subjective Progress Note for:: 01/07/19 Subjective:: No adverse events overnight. Patient is still requiring BiPAP. She came off of BiPAP and was able to go on for mask earlier so that she could eat she seems fairly comfortable. No fevers. She is been coughing up some thick tenacious sputum. Reason For Visit: ACUTE CONGESTIVE HEART FAILURE Physical Exam Vital Signs: Temp Pulse Resp BP Pulse Ox 97.6 F 68 25 H 107/66 93 01/07/19 11:25 01/07/19 11:25 01/07/19 13:13 01/07/19 11:25 01/07/19 11:25 Intake & Output 01/06/19 01/07/19 01/08/19 06:59 06:59 06:59 Intake Total 350 1154 Output Total 1075 1900 Balance -725 -746 Weight 80.1 kg 79.5 kg General appearance: PRESENT: no acute distress, cooperative, disheveled, morbidly obese Respiratory exam: PRESENT: crackles - Bibasilar, decreased breath sounds, symmetrical, unlabored. ABSENT: accessory muscle use, prolonged expiratory phas, rhonchi, tachypnea, wheezes Cardiovascular exam: PRESENT: RRR, +S1, +S2 Pulses: PRESENT: normal carotid pulses Vascular exam: PRESENT: normal capillary refill GI/Abdominal exam: PRESENT: normal bowel sounds, soft. ABSENT: distended, guard ing, rebound, tenderness Extremities exam: PRESENT: pedal edema - Trace, +1 edema. ABSENT: clubbing Musculoskeletal exam: PRESENT: normal inspection. ABSENT: deformity Neurological exam: PRESENT: alert, awake, oriented to person, oriented to place. ABSENT: oriented to time, oriented to situation Psychiatric exam: PRESENT: flat affect Skin exam: PRESENT: dry, warm Results Laboratory Results: 01/07/19 07:37 01/07/19 07:37 01/07/19 01/07/19 07:37 07:37 WBC 10.1 RBC 4.52 Hgb 13.6 Hct 40.5 MCV 89 MCH 30.1 MCHC 33.7 RDW 13.4 Plt Count 395 Sodium 133.0 L Potassium 3.7 Chloride 80 L Carbon Dioxide 44 H* Anion Gap 9 BUN 27 H Creatinine 0.62 Est GFR ( Amer) > 60 Est GFR (Non-Af Amer) > 60 Glucose 86 Calcium 8.2 L Magnesium 2.1 01/04/19 01/04/19 01/05/19 22:10 22:10 07:08 Creatine Kinase 79 59 CK-MB (CK-2) 1.23 Troponin I 0.030 NT-Pro-B Natriuret Pep [id number] H 01/05/19 01/05/19 01/05/19 07:08 15:23 15:23 Creatine Kinase 83 CK-MB (CK-2) 0.62 0.40 Troponin I 0.025 0.023 NT-Pro-B Natriuret Pep 01/06/19 05:59 Creatine Kinase CK-MB (CK-2) Troponin I NT-Pro-B Natriuret Pep 1950 H Impressions: Chest X-Ray 01/04/19 21:37 IMPRESSION: No evidence of acute cardiopulmonary disease. Assessment and Plan - Diagnosis (1) Acute congestive heart failure Qualifiers: Heart failure type: diastolic Qualified Code(s): I50.31 - Acute diastolic (congestive) heart failure Is this a current diagnosis for this admission?: Yes Plan: Her echocardiogram was actually fairly unremarkable, but when she came in a BNP was greater than 14,000, but it is now down to less than 2000. Have stopped IV Lasix and started her on some p.o. Lasix. (2) Acute respiratory failure Qualifiers: Respiratory failure complication: hypoxia Qualified Code(s): J96.01 - Acute respiratory failure with hypoxia Is this a current diagnosis for this admission?: Yes Plan: Continue BiPAP and supplemental O2 to maintain SPO2 greater than 90%. Sputum culture turned positive and so we will start her on some Augmentin. Also added some steroids. Because of her persistent hypoxemia despite a good diuresis and some improvement of her chest exam, of ordered a CT scan of the chest. (3) Morbid obesity with BMI of 40.0-44.9, adult Is this a current diagnosis for this admission?: Yes Plan: Strongly encouraged lifestyle modification. Based on my interactions with her, I am not certain how much of this she is going to be able to comprehend. (4) Haemophilus influenzae pneumonia Qualifiers: Laterality: bilateral Lung location: lower lobe of lung Qualified Code(s): J14 - Pneumonia due to Hemophilus influenzae Is this a current diagnosis for this admission?: Yes Plan: Started her on Augmentin and some prednisone. - Time Time Spent with patient: 25-34 minutes
--- NOTE | 2019-01-07 18:18 | RADIOLOGY REPORT (SQ) ---
EXAM DESCRIPTION: CT CHEST WITH COMPLETED DATE/TIME: 01/07/2019 5:58 pm REASON FOR STUDY: hypoxemia COMPARISON: Chest x-ray 01/04/2019 TECHNIQUE: CT scan of the chest performed using helical scanning technique with dynamic intravenous contrast injection. Images reviewed with lung, soft tissue and bone windows. Reconstructed coronal and sagittal MPR and MIP images reviewed. All images stored on PACS. All CT scanners at this facility use dose modulation, iterative reconstruction, and/or weight based d osing when appropriate to reduce radiation dose to as low as reasonably achievable (ALARA). [facility]: Dose Right [facility]: CareDose [facility]: Dose Right [facility]: Teradose 4D [facility]: MaintenanceNet CONTRAST TYPE AND DOSE: contrast/concentration: Isovue 350.00 mg/ml; Total Contrast Delivered: 80.0 ml; Total Saline Delivered: 55.0 ml RENAL FUNCTION: BUN 27 creatinine 0.62 RADIATION DOSE: CT Rad equipment meets quality standard of care and radiation dose reduction techniq ues were employed. CTDIvol: 15.4 mGy. DLP: 615 mGy-cm. . FINDINGS: LUNGS AND PLEURA: Dense opacification in the left lower lobe with milder opacification the right lower lobe. Smaller areas infiltrate in the upper lobes. Tree-in-bud changes. HILAR AND MEDIASTINAL STRUCTURES: No identified masses or abnormal nodes. HEART AND VASCULAR STRUCTURES: No aneurysm or dissection. No central pulmonary emboli. No pericardi al effusion. HARDWARE: None in the chest. UPPER ABDOMEN: No significant findings. Limited exam. THYROID AND OTHER SOFT TISSUES: No masses. No adenopathy. BONES: No significant finding. OTHER: No other significant finding. IMPRESSION: Multicentric pneumonia. Cannot exclude an atypical an infectious/inflammatory process. Tree-in-bud changes suggest a component of bronchiolitis. TECHNICAL DOCUMENTATION: JOB ID: [id number] Quality ID # [id number]: Final reports with documentation of one or more dose reduction techniques (e.g., Au tomated exposure control, adjustment of the mA and/or kV according to patient size, use of iterative reconstruction technique) 2010 [employer]- All Rights Reserved Reading location - IP/workstation name: [email or web address]
[2019-01-07] MEDS ORDERED: TEMAZEPAM 15 MG CAPSULE PO PRN (21:26)
[2019-01-08] MEDS: IPRATROPIUM BROMIDE 0.02% NEB 0.5 MG/2.5 ML AMPUL NEB SCH ×3 (00:30→15:22)
[2019-01-08] MEDS: LEVALBUTEROL HCL NEB 1.25 MG/3 ML AMPUL NEB SCH ×3 (00:30→15:22)
[2019-01-08] MEDS: HEPARIN SOD (PORCINE) 5,000 UNIT/ML 1 ML SYRINGE SUBCUT SCH ×3 (05:10→21:16)
[2019-01-08] MEDS: AMOXICILLIN TR/POT CLAVULANATE 500-125 MG TAB PO SCH ×3 (05:10→21:16)
[2019-01-08 07:04] LABS: HEMATOCRIT 41.4 % (36.0-47.0); MEAN CORPUSCULAR HEMOGLOBIN 30.2 pg (27.0-33.4); MEAN CORPUSCULAR VOLUME 89 fl (80-97); PLATELET COUNT 354 10^3/uL (150-450); RED BLOOD COUNT 4.66 10^6/uL (3.72-5.28); RED CELL DISTRIBUTION WIDTH 13.3 % (11.5-14.0); WHITE BLOOD COUNT 9.1 10^3/uL (4.0-10.5)
[2019-01-08 07:24] LABS: BLOOD UREA NITROGEN 23 mg/dL (7-20); CALCIUM 8.6 mg/dL (8.4-10.2); CHLORIDE 82 mmol/L (98-107); GLUCOSE 104 mg/dL (75-110); POTASSIUM 4.1 mmol/L (3.6-5.0); SODIUM 136.1 mmol/L (137-145)
[2019-01-08 07:34] LABS: ANION GAP 8 (5-19)
[2019-01-08 07:38] LABS: CARBON DIOXIDE 46 mmol/L (22-30)
[2019-01-08] MEDS: BUDESONIDE NEB 0.5 MG/2 ML AMPUL NEB SCH ×2 (07:51→20:00)
[2019-01-08] MEDS: METOPROLOL SUCCINATE 50 MG TAB.SR.24H PO SCH ×2 (10:29→21:16)
[2019-01-08] MEDS: FUROSEMIDE 40 MG TABLET PO SCH (10:29)
[2019-01-08] MEDS: ARIPIPRAZOLE 5 MG TABLET PO SCH ×2 (10:29→21:16)
[2019-01-08] MEDS: FAMOTIDINE 20 MG TABLET PO SCH ×2 (10:29→21:16)
[2019-01-08] MEDS: PREDNISONE 20 MG TABLET PO SCH (10:29)
[2019-01-08] MEDS: DOCUSATE SODIUM 100 MG CAPSULE PO SCH ×2 (10:29→17:21)
--- NOTE | 2019-01-08 17:01 | PDOC PROGRESS REPORT ---
Subjective Progress Note for:: 01/08/19 Subjective:: No adverse events overnight. No new complaints. Vital signs been stable. She has been on 6 L per nasal cannula and oxygen saturations are holding her right around 90% and she looks comfortable. She is asking if she can have the Nix catheter removed. She would like to go for a walk today. Reason For Visit: ACUTE CONGESTIVE HEART FAILURE Physical Exam Vital Signs: Temp Pulse Resp BP Pulse Ox 97.4 F 75 18 100/60 92 01/08/19 11:33 01/08/19 15:22 01/08/19 15:22 01/08/19 11:33 01/08/19 15:22 Intake & Output 01/07/19 01/08/19 01/09/19 06:59 06:59 06:59 Intake Total 1154 1557 Output Total 1900 1550 Balance -746 7 Weight 79.5 kg 80.7 kg General appearance: PRESENT: no acute distress, cooperative, disheveled, morbidly obese Respiratory exam: PRESENT: crackles - Bibasilar and very faint, decreased breath sounds, symmetrical, unlabored. ABSENT: accessory muscle use, prolonged expiratory phas, rhonchi, tachypnea, wheezes Cardiovascular exam: PRESENT: RRR, +S1, +S2 Pulses: PRESENT: normal carotid pulses Vascular exam: PRESENT: normal capillary refill GI/Abdominal exam: PRESENT: normal bowel sounds, soft. ABSENT: distended, guarding, rebound, tenderness Extremities exam: PRESENT: pedal edema - Trace, +1 edema. ABSENT: clubbing Musculoskeletal exam: PRESENT: normal inspection. ABSENT: deformity Neurological exam: PRESENT: alert, awake, oriented to person, oriented to place. ABSENT: oriented to time, oriented to situation Psychiatric exam: PRESENT: flat affect Skin exam: PRESENT: dry, warm Results Laboratory Results: 01/08/19 06:33 01/08/19 06:33 01/08/19 01/08/19 06:33 06:33 WBC 9.1 RBC 4.66 Hgb 14.0 Hct 41.4 MCV 89 MCH 30.2 MCHC 34.0 RDW 13.3 Plt Count 354 Sodium 136.1 L Potassium 4.1 Chloride 82 L Carbon Dioxide 46 H* Anion Gap 8 BUN 23 H Creatinine 0.58 Est GFR ( Amer) > 60 Est GFR (Non-Af Amer) > 60 Glucose 104 Calcium 8.6 Magnesium 2.6 H 01/04/19 01/04/19 01/05/19 22:10 22:10 07:08 Creatine Kinase 79 59 CK-MB (CK-2) 1.23 Troponin I 0.030 NT-Pro-B Natriuret Pep [id number] H 01/05/19 01/05/19 01/05/19 07:08 15:23 15:23 Creatine Kinase 83 CK-MB (CK-2) 0.62 0.40 Troponin I 0.025 0.023 NT-Pro-B Natriuret Pep 01/06/19 05:59 Creatine Kinase CK-MB (CK-2) Troponin I NT-Pro-B Natriuret Pep 1950 H Impressions: Chest X-Ray 01/04/19 21:37 IMPRESSION: No evidence of acute cardiopulmonary disease. Chest CT 01/07/19 00:00 IMPRESSION: Multicentric pneumonia. Cannot exclude an atypical an infectious/inflammatory process. Tree-in-bud changes suggest a component of bronchiolitis. Assessment and Plan - Diagnosis (1) Acute congestive heart failure Qualifiers: Heart failure type: diastolic Qualified Code(s): I50.31 - Acute diastolic (congestive) heart failure Is this a current diagnosis for this admission?: Yes Plan: Resolved (2) Acute respiratory failure Qualifiers: Respiratory failure complication: hypoxia Qualified Code(s): J96.01 - Acute respiratory failure with hypoxia Is this a current diagnosis for this admission?: Yes Plan: Improving. Her volume status has been corrected. She is also retrieving treatment for Haemophilus pneumonia and a COPD exacerbation. She is down to 6 L. She is probably chronically oxygen dependent but has never really had herself evaluated. (3) Morbid obesity with BMI of 40.0-44.9, adult Is this a current diagnosis for this admission?: Yes Plan: Strongly encouraged lifestyle modification. Based on my interactions with her, I am not certain how much of this she is going to be able to comprehend. (4) Haemophilus influenzae pneumonia Qualifiers: Laterality: bilateral Lung location: lower lobe of lung Qualified Code(s) : J14 - Pneumonia due to Hemophilus influenzae Is this a current diagnosis for this admission?: Yes Plan: Improving on Augmentin and some prednisone. - Time Time Spent with patient: 15-24 minutes
[2019-01-09] MEDS: IPRATROPIUM BROMIDE 0.02% NEB 0.5 MG/2.5 ML AMPUL NEB SCH ×3 (01:09→16:24)
[2019-01-09] MEDS: LEVALBUTEROL HCL NEB 1.25 MG/3 ML AMPUL NEB SCH ×3 (01:09→16:24)
[2019-01-09] MEDS: AMOXICILLIN TR/POT CLAVULANATE 500-125 MG TAB PO SCH ×3 (05:31→21:10)
[2019-01-09] MEDS: HEPARIN SOD (PORCINE) 5,000 UNIT/ML 1 ML SYRINGE SUBCUT SCH ×3 (05:31→21:11)
[2019-01-09] MEDS: BUDESONIDE NEB 0.5 MG/2 ML AMPUL NEB SCH ×2 (08:28→20:18)
[2019-01-09] MEDS: METOPROLOL SUCCINATE 50 MG TAB.SR.24H PO SCH ×2 (09:28→21:10)
[2019-01-09] MEDS: ARIPIPRAZOLE 5 MG TABLET PO SCH ×2 (09:28→21:10)
[2019-01-09] MEDS: FUROSEMIDE 40 MG TABLET PO SCH (09:28)
[2019-01-09] MEDS: PREDNISONE 20 MG TABLET PO SCH (09:28)
[2019-01-09] MEDS: DOCUSATE SODIUM 100 MG CAPSULE PO SCH ×2 (09:28→17:21)
[2019-01-09] MEDS: FAMOTIDINE 20 MG TABLET PO SCH ×2 (09:28→21:11)
--- NOTE | 2019-01-09 15:14 | PDOC PROGRESS REPORT ---
Subjective Progress Note for:: 01/09/19 Subjective:: No adverse events overnight. She is fairly comfortable at rest. She is on 6 L nasal cannula. At rest she is around 92% SPO2. When she gets up to walk on 6 L her oxygen saturations drop into the mid to upper 80s. Reason For Visit: ACUTE CONGESTIVE HEART FAILURE Physical Exam Vital Signs: Temp Pulse Resp BP Pulse Ox 97.5 F 70 22 H 128/67 H 89 L 01/09/19 11:02 01/09/19 11:02 01/09/19 11:02 01/09/19 11:02 01/09/19 11:02 Intake & Output 01/08/19 01/09/19 01/10/19 06:59 06:59 06:59 Intake Total 1557 1421 Output Total 1550 Balance 7 1421 Weight 80.7 kg 80.6 kg General appearance: PRESENT: no acute distress, cooperative, disheveled, morbidly obese Respiratory exam: PRESENT: crackles - Bibasilar and very faint, decreased breath sounds, symmetrical, unlabored. ABSENT: accessory muscle use, prolonged expiratory phas, rhonchi, tachypnea, wheezes Cardiovascular exam: PRESENT: RRR, +S1, +S2 Pulses: PRESENT: normal carotid pulses Vascular exam: PRESENT: normal capillary refill GI/Abdominal exam: PRESENT: normal bowel sounds, soft. ABSENT: distended, guarding, rebound, tenderness Extremities exam: PRESENT: pedal edema - Trace, +1 edema. ABSENT: clubbing Musculoskeletal exam: PRESENT: normal inspection. ABSENT: deformity Neurological exam: PRESENT: alert, awake, oriented to person, oriented to place. ABSENT: oriented to time, oriented to situation Psychiatric exam: PRESENT: flat affect Skin exam: PRESENT: dry, warm Results Laboratory Results: 01/08/19 06:33 01/08/19 06:33 01/04/19 21:47 Sputum Gram Stain - Final 01/04/19 21:47 Sputum Sputum Culture - Final Haemophilus Influenzae C.albicans/C.dubliniensis Reduced Normal Marsha 01/04/19 01/04/19 01/05/19 22:10 22:10 07:08 Creatine Kinase 79 59 CK-MB (CK-2) 1.23 Troponin I 0.030 NT-Pro-B Natriuret Pep [id number] H 01/05/19 01/05/19 01/05/19 07:08 15:23 15:23 Creatine Kinase 83 CK-MB (CK-2) 0.62 0.40 Troponin I 0.025 0.023 NT-Pro-B Natriuret Pep 01/06/19 05:59 Creatine Kinase CK-MB (CK-2) Troponin I NT-Pro-B Natriuret Pep 1950 H Impressions: Chest X-Ray 01/04/19 21:37 IMPRESSION: No evidence of acute cardiopulmonary disease. Chest CT 01/07/19 00:00 IMPRESSION: Multicentric pneumonia. Cannot exclude an atypical an infectious/inflammatory process. Tree-in-bud changes suggest a component of bronchiolitis. Assessment and Plan - Diagnosis (1) Acute congestive heart failure Qualifiers: Heart failure type: diastolic Qualified Code(s): I50.31 - Acute diastolic (congestive) heart failure Is this a current diagnosis for this admission?: Yes Plan: Resolved (2) Acute respiratory failure Qualifiers: Respiratory failure complication: hypoxia Qualified Code(s): J96.01 - Acute respiratory failure with hypoxia Is this a current diagnosis for this admission?: Yes Plan: Suspect that she actually has chronic respiratory failure due to her COPD and her years of smoking. Currently stable on 6 L per nasal cannula as noted above. Anticipate she will need oxygen at home upon discharge. (3) Morbid obesity with BMI of 40.0-44.9, adult Is this a current diagnosis for this admission?: Yes Plan: Strongly encouraged lifestyle modification. Based on my interactions with her, I am not certain how much of this she is going to be able to comprehend. (4) Haemophilus influenzae pneumonia Qualifiers: Laterality: bilateral Lung location: lower lobe of lung Qualified Code(s): J14 - Pneumonia due to Hemophilus influenzae Is this a current diagnosis for this admission?: Yes Plan: Improving on Augmentin and some prednisone. - Time Time Spent with patient: 15-24 minutes
[2019-01-10] MEDS: LEVALBUTEROL HCL NEB 1.25 MG/3 ML AMPUL NEB SCH ×3 (00:37→16:06)
[2019-01-10] MEDS: IPRATROPIUM BROMIDE 0.02% NEB 0.5 MG/2.5 ML AMPUL NEB SCH ×3 (00:37→16:06)
[2019-01-10] MEDS: HEPARIN SOD (PORCINE) 5,000 UNIT/ML 1 ML SYRINGE SUBCUT SCH ×2 (05:37→14:38)
[2019-01-10] MEDS: AMOXICILLIN TR/POT CLAVULANATE 500-125 MG TAB PO SCH ×2 (05:37→14:38)
[2019-01-10] MEDS: BUDESONIDE NEB 0.5 MG/2 ML AMPUL NEB SCH (08:17)
[2019-01-10] MEDS: ARIPIPRAZOLE 5 MG TABLET PO SCH (09:17)
[2019-01-10] MEDS: PREDNISONE 20 MG TABLET PO SCH (09:17)
[2019-01-10] MEDS: FUROSEMIDE 40 MG TABLET PO SCH (09:17)
[2019-01-10] MEDS: FAMOTIDINE 20 MG TABLET PO SCH (09:17)
[2019-01-10] MEDS: DOCUSATE SODIUM 100 MG CAPSULE PO SCH (09:17)
[2019-01-10] MEDS: METOPROLOL SUCCINATE 50 MG TAB.SR.24H PO SCH (09:17)
[2019-01-10 15:36] VITALS: BP 125/62
--- NOTE | 2019-01-10 17:10 | PDOC DISCHARGE SUMMARY ---
General - Admit/Disc Date/PCP Admission Date/Primary Care Provider: 01/05/19 00:34 Discharge Date: 01/10/19 - Discharge Diagnosis (1) Acute congestive heart failure Is this a current diagnosis for this admission?: Yes Summary: She was acutely volume overloaded when she came in her BNP was 14,000. She was put on IV Lasix and responded very well. Echocardiogram showed only some grade 1 diastolic dysfunction, with a preserved EF at 60% and no evidence of any significant valvular abnormality. This was thought most likely to be due to hypertension. She does not have chronic congestive heart failure. She is not going home on Lasix. (2) Acute respiratory failure Is this a current diagnosis for this admission?: Yes Summary: This is actually acute on chronic. She has COPD, and has a heavy smoking history. We wound up having to get her qualified for home oxygen at 5 L/min. (3) Morbid obesity with BMI of 40.0-44.9, adult Is this a current diagnosis for this admission?: Yes Summary: Strongly encouraged lifestyle modification. (4) Haemophilus influenzae pneumonia Is this a current diagnosis for this admission?: Yes Summary: Sputum cultures grew out Haemophilus influenzae. She had some wheezing and was hypoxemic and so she was started on some prednisone, and she did have some improvement was able to come off BiPAP. She will finish up some prednisone and Augmentin at home. - Additional Information Resuscitation Status: Full Code Discharge Diet: Cardiac Discharge Activity: Activity As Tolerated, Balance Activity w/Rest, Weigh Daily Prescriptions: Amox Tr/Potassium Clavulanate [Augmentin 875-125 mg Tablet] 1 tab PO BID #10 tablet Nystatin [Mycostatin Cream 15 gm] 1 applic TP Q8HP PRN #1 tube PRN Reason: Prednisone [Deltasone 20 mg Tablet] 40 mg PO DAILY #10 tablet Home Medications: Amox Tr/Potassium Clavulanate [Augmentin 875-125 mg Tablet] 1 tab PO BID #10 tablet 01/10/19 Aripiprazole [Abilify 5 mg Tablet] 5 mg PO Q12 tablet 01/10/19 Metoprolol Succinate [Toprol Xl 50 mg Tab.sr] 50 mg PO Q12 tab.sr.24h 01/10/19 Nystatin [Mycostatin Cream 15 gm] 1 applic TP Q8HP PRN #1 tube 01/10/19 Prednisone [Deltasone 20 mg Tablet] 40 mg PO DAILY #10 tablet 01/10/19 History of Present Illness History of Present Illness: TRISTA ESTRELLA is a 53 year old female who presented to the emergency room with a 1 week history of dyspnea. Patient states that her dyspnea began 1 week prior to her admission and was relatively mild but then approximately 1 day ago she noted the onset of moderate to severe orthopnea and a mild to moderate occasional cough productive of small amounts of yellowish-green mucus. Her dyspnea was worsened by activity and alleviated in part by rest, she denies prior similar episodes. Over the course of the day and evening prior to admi ssion her dyspnea rapidly worsened and became severe. EMS was summoned and found her to have an O2 sat of 70% on their arrival. She was treated with supplemental oxygen, albuterol nebulizers as well as IV Solu-Medrol in the ambulance on the way to the hospital. Upon arrival in the emergency room the patient was evaluated and found to have a chest x-ray consistent with congestive heart failure as well as a BNP of 14,000. Patient was treated with nitroglycerin paste, intravenous Lasix and BiPAP with significant improvement in her overall status. She was subsequently admitted to the [facility] for further evaluation and treatment. Hospital Course Hospital Course: Her fluid overload resolved quickly, and was thought to be due to hypertension acutely. We got her off Lasix after a few days. She was still hypoxemic, was still requiring BiPAP, and when her sputum cultures grew out Haemophilus we put her on Augmentin. Prednisone was added and she was able to come off BiPAP. However, she was still requiring a substantial amount of oxygen, and was not able to get below 5 L on nasal cannula, although she did feel pretty good at rest on that. This is thought to be more of a chronic process, due to her COPD and her long smoking history. We got home oxygen arranged for her. She will continue on Augmentin and prednisone at home. Her labs and examination were reassuring and she was discharged in stable condition. Physical Exam Vital Signs: Temp Pulse Resp BP Pulse Ox 97.9 F 66 18 125/62 92 01/10/19 16:45 01/10/19 16:45 01/10/19 16:45 01/10/19 16:45 01/10/19 16:45 Intake & Output 01/09/19 01/10/19 01/11/19 06:59 06:59 06:59 Intake Total 1421 1464 354 Balance 1421 1464 354 Weight 80.6 kg 81.1 kg General appearance: PRESENT: no acute distress, cooperative, disheveled, morbidly obese Respiratory exam: PRESENT: crackles - Bibasilar and very faint, decreased breath sounds, symmetrical, unlabored. ABSENT: accessory muscle use, prolonged expiratory phas, rhonchi, tachypnea, wheezes Cardiovascular exam: PRESENT: RRR, +S1, +S2 Pulses: PRESENT: normal carotid pulses Vascular exam: PRESENT: normal capillary refill GI/Abdominal exam: PRESENT: normal bowel sounds, soft. ABSENT: distended, guarding, rebound, tenderness Extremities exam: PRESENT: pedal edema - Trace, +1 edema. ABSENT: clubbing Musculoskeletal exam: PRESENT: normal inspection. ABSENT: deformity Neurological exam: PRESENT: alert, awake, oriented to person, oriented to place. ABSENT: oriented to time, oriented to situation Psychiatric exam: PRESENT: flat affect Skin exam: PRESENT: dry, warm Results Laboratory Results: 01/08/19 06:33 01/08/19 06:33 01/04/19 21:47 Sputum Gram Stain - Final 01/04/19 21:47 Sputum Sputum Culture - Final Haemophilus Influenzae C.albicans/C.dubliniensis Reduced Normal Marsha 01/04/19 01/04/19 01/05/19 22:10 22:10 07:08 Creatine Kinase 79 59 CK-MB (CK-2) 1.23 Troponin I 0.030 NT-Pro-B Natriuret Pep 85979 H 01/05/19 01/05/19 01/05/19 07:08 15:23 15:23 Creatine Kinase 83 CK-MB (CK-2) 0.62 0.40 Troponin I 0.025 0.023 NT-Pro-B Natriuret Pep 01/06/19 05:59 Creatine Kinase CK-MB (CK-2) Troponin I NT-Pro-B Natriuret Pep 1950 H Impressions: Chest X-Ray 01/04/19 21:37 IMPRESSION: No evidence of acute cardiopulmonary disease. Chest CT 01/07/19 00:00 IMPRESSION: Multicentric pneumonia. Cannot exclude an atypical an infectious/inflammatory process. Tree-in-bud changes suggest a component of bronchiolitis. Qualifiers - * PATIENT BEING DISCHARGED WITH ANY OF THE FOLLOWING DIAGNOSIS: No Acute Heart Failure Is this a Heart Failure Patient?: No Plan Time Spent: Greater than 30 Minutes
== END 2019-01-10 17:39 | disposition home or self-care (01) | DRG 291 ==
LOC: ER 21:30 → EH 01-05 00:34 → 3W 01-05 02:25
PROVIDERS: ADMIT Emergency Medicine; ATTEND Emergency Medicine
PROC: 5A09557 Assistance with Respiratory Ventilation, Greater than 96 Consecutive Hours, Continuous Positive Airway Pressure (ICD-10-PCS; 2019-01-04)
PROC: 3E0F73Z Introduction of Anti-inflammatory into Respiratory Tract, Via Natural or Artificial Opening (ICD-10-PCS; principal; 2019-01-05)
DX: I11.0 Hypertensive heart disease with heart failure (principal); J14 Pneumonia due to Hemophilus influenzae; J96.21 Acute and chronic respiratory failure with hypoxia; I50.31 Acute diastolic (congestive) heart failure; J96.22 Acute and chronic respiratory failure with hypercapnia; Z68.41 Body mass index [BMI] 40.0-44.9, adult; J44.0 Chronic obstructive pulmonary disease with (acute) lower respiratory infection; I25.10 Atherosclerotic heart disease of native coronary artery without angina pectoris; E66.01 Morbid (severe) obesity due to excess calories; E11.9 Type 2 diabetes mellitus without complications; E03.9 Hypothyroidism, unspecified; K21.9 Gastro-esophageal reflux disease without esophagitis; F31.9 Bipolar disorder, unspecified; F17.210 Nicotine dependence, cigarettes, uncomplicated; F41.9 Anxiety disorder, unspecified; F42.9 Obsessive-compulsive disorder, unspecified; Z99.81 Dependence on supplemental oxygen; Z86.718 Personal history of other venous thrombosis and embolism; Z90.49 Acquired absence of other specified parts of digestive tract; Z79.899 Other long term (current) drug therapy; Z79.891 Long term (current) use of opiate analgesic; Z88.3 Allergy status to other anti-infective agents; Z88.8 Allergy status to other drugs, medicaments and biological substances; Z91.048 Other nonmedicinal substance allergy status; Z82.61 Family history of arthritis; Z82.49 Family history of ischemic heart disease and other diseases of the circulatory system; Z82.3 Family history of stroke; Z83.3 Family history of diabetes mellitus; Z80.9 Family history of malignant neoplasm, unspecified; Z83.49 Family history of other endocrine, nutritional and metabolic diseases
CPT/HCPCS: 36415; 36600; 71045; 71260; 80048; 80053; 80061; 81001; 82550; 82553; 82803; 83036; 83735; 83880; 84439; 84443; 84481; 84484; 85025; 85027; 87070; 87077; 87205; 93005; 93010; 93306; 94640; 94660; 96365; 99291; 99406; J1644; J1940; J3475; J3490; J7512

== ENCOUNTER 2019-11-21 22:00 | Inpatient (IN) | payer MEDICAID ==
[2019-11-21 22:50] LABS: ABSOLUTE LYMPHOCYTES (AUTO) 0.8 10^3/uL (0.5-4.7); ABSOLUTE MONOCYTES (AUTO) 0.7 10^3/uL (0.1-1.4); BASOPHILS % (AUTO) 0.5 % (0-2); HEMATOCRIT 38.9 % (36.0-47.0); HEMOGLOBIN 12.9 g/dL (12.0-15.5); LYMPHOCYTES % (AUTO) 15.3 % (13-45); MEAN CORPUSCULAR HEMOGLOBIN 31.6 pg (27.0-33.4); MEAN CORPUSCULAR HGB CONC 33.1 g/dL (32.0-36.0); MEAN CORPUSCULAR VOLUME 95 fl (80-97); MONOCYTES % (AUTO) 12.2 % (3-13); PLATELET COUNT 122 10^3/uL (150-450); RED BLOOD COUNT 4.08 10^6/uL (3.72-5.28); RED CELL DISTRIBUTION WIDTH 13.3 % (11.5-14.0); TOTAL CELLS COUNTED % (AUTO) 100 %; VENOUS BLOOD BASE EXCESS 21.7 mmol/L; VENOUS BLOOD PH 7.4 (7.30-7.42); WHITE BLOOD COUNT 5.6 10^3/uL (4.0-10.5)
--- NOTE | 2019-11-21 22:53 | RADIOLOGY REPORT (SQ) ---
EXAM DESCRIPTION: XR CHEST 1 VIEW COMPLETED DATE/TME: 11/21/2019 22:17 CLINICAL HISTORY: 54 years, Female, shortness of breath COMPARISON: Prior study from 01/04/2019 NUMBER OF VIEWS: One TECHNIQUE: Single frontal view of the chest was obtained portably LIMITATIONS: None. FINDINGS: Cardiac and mediastinal contours are stable. Lungs are clear. No pleural effusion or pneumothorax. IMPRESSION: No acute disease. copyright 2010 [employer]- All Rights Reserved
[2019-11-21 22:54] LABS: VENOUS BLOOD PCO2 86.6 mmHg (35-63)
[2019-11-21 23:03] LABS: APPEARANCE,URINE SLIGHTLY-CLOUDY; BILIRUBIN,URINE NEGATIVE (NEGATIVE); COLOR,URINE AMBER; GLUCOSE, URINE NEGATIVE (NEGATIVE); KETONES,URINE 20 mg/dL (NEGATIVE); LEUKOCYTE ESTERASE,URINE NEGATIVE (NEGATIVE); NITRITE,URINE NEGATIVE (NEGATIVE); PROTEIN,URINE 100 mg/dL (NEGATIVE); URINE SPECIFIC GRAVITY 1.025
[2019-11-21 23:07] LABS: ALBUMIN 3.7 g/dL (3.5-5.0); ALKALINE PHOSPHATASE 64 U/L (38-126); ASPARTATE AMINO TRANSFERASE 24 U/L (14-36); BILIRUBIN,DIRECT 0.3 mg/dL (0.0-0.4); BILIRUBIN,TOTAL 0.9 mg/dL (0.2-1.3); BLOOD UREA NITROGEN 21 mg/dL (7-20); CALCIUM 9.1 mg/dL (8.4-10.2); CHLORIDE 80 mmol/L (98-107); GLUCOSE 101 mg/dL (75-110); POTASSIUM 4.7 mmol/L (3.6-5.0); TOTAL PROTEIN 6.9 g/dL (6.3-8.2)
[2019-11-21 23:14] LABS: ANION GAP 5 (5-19)
[2019-11-21 23:15] LABS: CARBON DIOXIDE 52 mmol/L (22-30)
[2019-11-21] MEDS ORDERED: ASPIRIN 81 MG TABLET, CHEWABLE PO ONE (23:53)
[2019-11-22] MEDS ORDERED: NITROGLYCERIN 2% OINTMENT 1 GM PACKET TP ONE
[2019-11-22] MEDS ORDERED: FUROSEMIDE INJ/PF 20 MG/2 ML SDV IV ONE
--- NOTE | 2019-11-22 00:27 | ER Document Report ---
Entered by ЕЛЕНА GARCIA SCRIBE 11/21/19 0125 Acting as scribe for:SOCORRO BOLES, ED General - General Information source: Patient TRAVEL OUTSIDE OF THE [place] IN LAST 30 DAYS: No <SOCORRO BOLES - Last Filed: 11/22/19 02:31> <ANGUS MERCHANT - Last Filed: 11/22/19 04:45> - General Chief Complaint: Shortness Of Breath Stated Complaint: SHORTNESS OF BREATH/ALTERED MENTAL STATUS Time Seen by Provider: 11/21/19 22:57 Primary Care Provider: MORRO ORTIZ JR, MD [Primary Care Provider] - Follow up as needed Notes: This 54-year-old female with ETOH abuse, CHF and chronic respiratory disease presents via EMS to the emergency department complaining of shortness of breath that began today. Patient explains that she has stopped taking her medications and she does not wear her oxygen for the past couple of days. Patient does not answer why she has not been taking meds or using her oxygen. Patient is suppose to be on 5L of oxygen all the time. Patient states that she has been falling more for the past 2 days. Patient complains of pain all over with bruising from the falls. Patient denies LOC, nausea, chest pain and vomiting. PCP: Dr. Morro Ortiz at [place], [place]. (SOCORRO BOLES) - Related Data Allergies/Adverse Reactions: levothyroxine sodium [From Synthroid] Allergy (Verified 06/01/13 07:45) methotrexate [Methotrexate] Allergy (Verified 06/01/13 07:45) yellow dye [Yellow Dye] Allergy (Verified 06/01/13 07:45) azithromycin [Azithromycin] Adverse Reaction (Verified 06/01/13 07:45) temazepam [From Restoril] Adverse Reaction (Verified 02/10/19 07:57) Past Medical History - General Information source: Patient - Social History Smoking Status: Never Smoker Cigarette use (# per day): No Chew tobacco use (# tins/day): No Family History: Arthritis, CAD, CVA, DM, Hyperlipidemia, Hypertension, Malignancy, Thyroid Disfunction Patient has suicidal ideation: No Patient has homicidal ideation: No - Past Medical History Cardiac Medical History: Reports: Hx Coronary Artery Disease, Hx DVT, Hx Hypertension Pulmonary Medical History: Reports: Hx Asthma, Hx COPD Neurological Medical History: Reports: Hx Migraine Endocrine Medical History: Reports: Hx Diabetes Mellitus Type 2, Hx Hypothyroidism GI Medical History: Reports: Hx Gastroesophageal Reflux Disease Musculoskeletal Medical History: Reports Hx Musculoskeletal Deformity - scoliosis, Reports Hx Musculoskeletal Trauma Skin Medical History: Reports Hx Cellulitis Psychiatric Medical History: Reports: Hx Anxiety, Hx Bipolar Disorder, Hx Depression, Hx Obsessive Compulsive Disorder Traumatic Medical History: Reports: Hx Fractures Past Surgical History: Reports: Hx Abdominal Surgery, Hx Section - x 2, Hx Cholecystectomy, Hx Oral Surgery, Hx Tubal Ligation - Immunizations Immunizations up to date: No Hx Diphtheria, Pertussis, Tetanus Vaccination: No <SOCORRO BOLES P - Last Filed: 11/22/19 02:31> Review of Systems - Review of Systems Constitutional: No symptoms reported EENT: No symptoms reported Cardiovascular: See HPI. denies: Chest pain Respiratory: No symptoms reported Gastrointestinal: See HPI. denies: Nausea, Vomiting Genitourinary: No symptoms reported Female Genitourinary: No symptoms reported Musculoskeletal: See HPI, Other - "Pain all over" Skin: See HPI, Other - Bruises on LE Hematologic/Lymphatic: No symptoms reported Neurological/Psychological: See HPI. denies: Lost consciousness -: Yes All other systems reviewed and negative <SOCORRO BOLES P - Last Filed: 11/22/19 02:31> Physical Exam <SOCORRO BOLES P - Last Filed: 11/22/19 02:31> - Vital signs Vitals: Temp Pulse Ox 100.0 F 97 11/21/19 22:06 11/21/19 22:06 - Notes Notes: Physical Exam: General: Alert, appears older than stated age. Patient is disheveled. HEENT: Normocephalic. Atraumatic. PERRL. Extraocular movements intact. Oropharynx clear. Poor hygiene with severe periodontal disease. Neck: Supple. Non-tender. Respiratory: No respiratory distress. Expiratory wheezes bilaterally with good air movement. Cardiovascular: Regular rate and rhythm. Abdominal: Morbidly Obese. Non-tender. No distension. Normal Bowel Sounds. Back: No gross abnormalities. Extremities: Moves all four extremities. Upper extremities: Normal inspection. Normal ROM. Lower extremities: Bruises on LE bilaterally with no deformity. No edema. Normal ROM. Neurological: Normal cognition. AAOx4. Normal speech. Psychological: Normal affect. Normal Mood. Skin: Warm. Dry. Normal color. (SOCORRO BOLES) Course - Laboratory Result Diagrams: 11/21/19 22:27 11/21/19 22:27 - Diagnostic Test Radiology reviewed: Image reviewed, Reports reviewed - EKG Interpretation by Me EKG shows normal: Sinus rhythm Rate: Normal Rhythm: NSR - NSR Nl [place] [address] elevation or depression my interpretation. <SOCORRO BOLES - Last Filed: 11/22/19 02:31> - Laboratory Result Diagrams: 11/21/19 22:27 11/21/19 22:27 <ANGUS MERCHANT - Last Filed: 11/22/19 04:45> - Re-evaluation Re-evalutation: 11/22/19 02:29 MDM 54 year old female arrives with difficult history. She has known cad but reportedly preserved function EF 60% on last echo here in January 2019. Her history here is one of some chest pain about 24 hours ago but can not accurately report any aspects concerning this pain. She is pain free here and is comfortable on BIPAP in the ED. I have consulted with Dr. Butcher and he is happy to be a con sultant on this pt. I have discussed this with the pt and she expressed understanding. (SOCORRO BOLES) 11/22/19 04:43 The patient is not having chest pain here in the ER. Her first Trop was slightly elevated and a second Trop beronica but not all that much. The patient tells me she had a cardiac cath about 4 years ago showing no significant CAD and she needed no intervention at that time. The patient was hyopoxic and hypercarbic on ER arrival but this improved on Bipap. The patient was admitted to [facility] by Dt. Owusu for further treatment and care. (ANGUS MERCHANT) - Vital Signs Vital signs: Temp Pulse Resp BP Pulse Ox 100.0 F 10 L 144/83 H 98 11/21/19 22:06 11/22/19 04:01 11/22/19 04:01 11/22/19 03:00 - Laboratory Laboratory results interpreted by me: 11/21/19 11/21/19 11/21/19 22:27 22:27 22:27 Plt Count 122 L VBG pCO2 86.6 H* VBG HCO3 52.0 H Sodium 136.9 L Chloride 80 L Carbon Dioxide 52 H* BUN 21 H Urine Protein Urine Ketones Urine Urobilinogen 11/21/19 22:27 Plt Count VBG pCO2 VBG HCO3 Sodium Chloride Carbon Dioxide BUN Urine Protein 100 H Urine Ketones 20 H Urine Urobilinogen 4.0 H Critical Care Note - Critical Care Note Total time excluding time spent on procedures (mins): 30 <SOCORRO BOLES P - Last Filed: 11/22/19 02:31> Discharge <SOCORRO BOLES P - Last Filed: 11/22/19 02:31> - Discharge Admitting Provider: Umer (Hospitalist) Unit Admitted: [facility] <ANGUS MERCHANT H - Last Filed: 11/22/19 04:45> - Discharge Clinical Impression: Acute respiratory failure with hypoxia and hypercapnia, NSTEMI (non-ST elevated myocardial infarction) Acute congestive heart failure Qualifiers: Heart failure type: unspecified Qualified Code(s): I50.9 - Heart failure, unspecified Hypertension Qualifiers: Hypertension type: unspecified Qualified Code(s): I10 - Essential (primary) hypertension Condition: Fair Disposition: ADMITTED INPATIENT Referrals: MORRO ORTIZ JR, MD [Primary Care Provider] - Follow up as needed I personally performed the services described in the documentation, reviewed and edited the documentation which was dictated to the scribe in my presence, and it accurately records my words and actions.
[2019-11-22 02:16] LABS: A TYPE INFLUENZA AG NEGATIVE (NEGATIVE); B INFLUENZA AG NEGATIVE (NEGATIVE)
[2019-11-22 05:00] LABS: ARTERIAL BLOOD BASE EXCESS 27.3 mmol/L; ARTERIAL BLOOD FIO2 30%; ARTERIAL BLOOD H2CO3 2.35 mmol/L (1.05-1.35); ARTERIAL BLOOD HCO3 56.3 mmol/L (20-24); ARTERIAL BLOOD O2 SATURATION 88.5 % (94-98); ARTERIAL BLOOD PH 7.48 (7.35-7.45); ARTERIAL BLOOD PO2 54.6 mmHg (80-100); ARTERIAL BLOOD TOTAL CO2 58.7 mmol/L (21-25)
[2019-11-22] MEDS ORDERED: ENOXAPARIN SODIUM INJ 100 MG/1 ML DISP.SYRIN SUBCUT SCH (05:00)
[2019-11-22] MEDS ORDERED: ACETAMINOPHEN 325 MG TABLET PO PRN (05:01)
[2019-11-22] MEDS ORDERED: IPRATROPIUM/ALBUTEROL 0.5-2.5 MG/3 ML AMPUL NEB PRN (05:01)
[2019-11-22 05:02] LABS: ARTERIAL BLOOD PCO2 78.2 mmHg (35-45)
--- NOTE | 2019-11-22 05:12 | PDOC H&P ---
History of Present Illness Admission Date/PCP: DARIAN ORTIZ JR, MD Patient complains of: Shortness of breath History of Present Illness: TRISTA ESTRELLA is a 54 year old female with a past medical history of, morbid obesity, oxygen dependent COPD, chronic bronchitis, obstructive sleep apnea and persistent alcohol and tobacco dependence. She presents via EMS with shortness of breath and falls with recurrent muscular jerking. She admits to taking [id number] sleeping medicine. In the emergency department she is found to have a VBG with a PCO2 of 86, myoclonic jerks and an elevated troponin. EKG is unchanged from baseline and she is referred to the hospitalist for admission. She cannot recall the name of any of her medications with exception to Paxil. Past Medical History Cardiac Medical History: Reports: Coronary Artery Disease, DVT, Hypertension Denies: Myocardial Infarction Pulmonary Medical History: Reports: Asthma, Chronic Obstructive Pulmonary Disease (COPD) Denies: Bronchitis, Pneumonia, Respiratory Failure, Tuberculosis Neurological Medical History: Reports: Migraine Denies: Seizures Endocrine Medical History: Reports: Diabetes Mellitus Type 2, Hypothyroidism Denies: Diabetes Mellitus Type 1, Hyperthyroidism GI Medical History: Reports: Gastroesophageal Reflux Disease Denies: Cirrhosis, Hepatitis Musculoskeltal Medical History: Denies: Arthritis, Gout Skin Medical History: Denies: Eczema, Psoriasis Psychiatric Medical History: Reports: Bipolar Disorder, Depression, Tobacco Dependency Hematology: Denies: Anemia, Bleeding Tendencies Past Surgical History Past Surgical History: Reports: Section - x 2, Cholecystectomy, Tubal Ligation Denies: Pacemaker Social History Information Source: Patient, [facility] Records Smoking Status: Current Every Day Smoker Frequency of Alcohol Use: Occasional Hx Recreational Drug Use: No Drugs: None Hx Prescription Drug Abuse: No - Advance Directive Resuscitation Status: Full Code Family History Family History: Arthritis, CAD, CVA, DM, Hyperlipidemia, Hypertension, Malignancy, Thyroid Disfunction Parental Family History Reviewed: Yes Children Family History Reviewed: Yes Sibling(s) Family History Reviewed.: Yes Medication/Allergy Home Medications: Unobtainable 11/22/19 Allergies/Adverse Reactions: levothyroxine sodium [From Synthroid] Allergy (Verified 06/01/13 07:45) methotrexate [Methotrexate] Allergy (Verified 06/01/13 07:45) yellow dye [Yellow Dye] Allergy (Verified 06/01/13 07:45) azithromycin [Azithromycin] Adverse Reaction (Verified 09/25/13 07:45) temazepam [From Restoril] Adverse Reaction (Verified 02/10/19 07:57) Review of Systems ROS unobtainable: Due to mental status - Patient answers affirmatively to all questions and felt an unreliable historian. Physical Exam Vital Signs: Temp Pulse Resp BP Pulse Ox 100.0 F 16 163/109 H 98 11/21/19 22:06 11/22/19 05:01 11/22/19 05:01 11/22/19 05:01 Intake & Output 11/20/19 11/21/19 11/22/19 11:59 11:59 11:59 Weight 93.5 kg General appearance: PRESENT: cooperative, disheveled, mild distress, morbidly obese, well-developed. ABSENT: well-nourished Head exam: PRESENT: atraumatic, normocephalic Eye exam: PRESENT: conjunctiva pink, EOMI, PERRLA. ABSENT: scleral icterus Ear exam: PRESENT: normal external ear exam Mouth exam: PRESENT: moist, tongue midline Neck exam: ABSENT: carotid bruit, JVD, lymphadenopathy, thyromegaly Respiratory exam: PRESENT: crackles, decreased breath sounds, prolonged expiratory phas, symmetrical, unlabored. ABSENT: rhonchi Cardiovascular exam: PRESENT: RRR. ABSENT: diastolic murmur, rubs, systolic murmur Pulses: PRESENT: normal dorsalis pedis pul Vascular exam: PRESENT: normal capillary refill GI/Abdominal exam: PRESENT: normal bowel sounds, soft. ABSENT: distended, guarding, mass, organolmegaly, rebound, tenderness Rectal exam: PRESENT: deferred Extremities exam: PRESENT: full ROM, +1 edema. ABSENT: calf tenderness, clubbing, pedal edema Neurological exam: PRESENT: alert, awake, oriented to person, oriented to place, oriented to time, oriented to situation, CN II-XII grossly intact. ABSENT: motor sensory deficit Psychiatric exam: PRESENT: appropriate affect, normal mood, unusual affect. ABSENT: homicidal ideation, suicidal ideation Skin exam: PRESENT: dry, intact, warm. ABSENT: cyanosis, rash Results Laboratory Results: 11/21/19 22:27 11/21/19 22:27 11/21/19 11/21/19 11/21/19 22:27 22:27 22:27 WBC 5.6 RBC 4.08 Hgb 12.9 Hct 38.9 MCV 95 MCH 31.6 MCHC 33.1 RDW 13.3 Plt Count 122 L Seg Neutrophils % 72.0 Carbonic Acid HCO3/H2CO3 Ratio ABG pH ABG pCO2 ABG pO2 ABG HCO3 ABG O2 Saturation ABG Base Excess VBG pH VBG pCO2 VBG HCO3 VBG Base Excess FiO2 Sodium 136.9 L Potassium 4.7 Chloride 80 L Carbon Dioxide 52 H* Anion Gap 5 BUN 21 H Creatinine 0.62 Est GFR ( Amer) > 60 Glucose 101 Lactic Acid 1.3 Calcium 9.1 Total Bilirubin 0.9 AST 24 Alkaline Phosphatase 64 Total Protein 6.9 Albumin 3.7 Urine Color Urine Appearance Urine pH Ur Specific [place] Urine Protein Urine Glucose (UA) Urine Ketones Urine Blood Urine Nitrite Ur Leukocyte Esterase Urine WBC (Auto) Urine RBC (Auto) 11/21/19 11/21/19 11/22/19 22:27 22:27 04:15 WBC RBC Hgb Hct MCV MCH MCHC RDW Plt Count Seg Neutrophils % Carbonic Acid 2.35 H HCO3/H2CO3 Ratio 23:1 ABG pH 7.48 H ABG pCO2 78.2 H* ABG pO2 54.6 L ABG HCO3 56.3 H ABG O2 Saturation 88.5 L ABG Base Excess 27.3 VBG pH 7.40 VBG pCO2 86.6 H* VBG HCO3 52.0 H VBG Base Excess 21.7 FiO2 30% Sodium Potassium Chloride Carbon Dioxide Anion Gap BUN Creatinine Est GFR ( Amer) Glucose Lactic Acid Calcium Total Bilirubin AST Alkaline Phosphatase Total Protein Albumin Urine Color VIVIAN Urine Appearance SLIGHTLY-CLOUDY Urine pH 6.0 Ur Specific [place] 1.025 Urine Protein 100 H Urine Glucose (UA) NEGATIVE Urine Ketones 20 H Urine Blood NEGATIVE Urine Nitrite NEGATIVE Ur Leukocyte Esterase NEGATIVE Urine WBC (Auto) 1 Urine RBC (Auto) 1 11/21/19 11/22/19 22:27 02:39 Troponin I 0.184 0.257 Impressions: Chest X-Ray 11/21/19 22:17 IMPRESSION: No acute disease. copyright 2011 [employer]- All Rights Reserved Assessment and Plan - Diagnosis (1) Acute respiratory failure with hypoxia and hypercapnia Is this a current diagnosis for this admission?: Yes Plan: Complicated by morbid obesity, oxygen dependent COPD with persistent tobacco and reduction of respiratory drive with sleeping medication use. BiPAP, education, follow-up ABG (2) Morbid obesity with BMI of 40.0-44.9, adult Is this a current diagnosis for this admission?: Yes Plan: Morbid obesity will evaluate for metabolic cause with evaluation of thyroid function and dietitian consultation with a BMI of 44 (3) NSTEMI (non-ST elevated myocardial infarction) Is this a current diagnosis for this admission?: Yes Plan: Unremarkable EKG, likely mismatch, aspirin, full dose Lovenox, optimize pulmonary status. Follow-up cardiology consult and troponin. - Time Time Spent with patient: 25-34 minutes - Inpatient Certification Medical Necessity: Need Close Monitoring Due to Risk of Patient Decompensation
[2019-11-22] MEDS ORDERED: NORMAL SALINE 1000 ML 1,000 ML IV ONE (06:05)
[2019-11-22] MEDS: ENOXAPARIN SODIUM INJ 100 MG/1 ML DISP.SYRIN SUBCUT SCH ×2 (06:57→17:42)
[2019-11-22] MEDS ORDERED: IPRATROPIUM/ALBUTEROL 0.5-2.5 MG/3 ML AMPUL NEB SCH (08:00)
[2019-11-22] MEDS ORDERED: INFLUENZA QUAD (6MOS+) 2019-20 VAC 0.5 ML SYR IM ONE (08:15)
--- NOTE | 2019-11-22 09:35 | PDOC CONSULTATION ---
Consultation Consult Date: 11/22/19 Attending physician:: GEORGE HERRERA Provider Consulted: ARTURO GUERRA Consult reason:: Elevated troponin History of Present Illness Admission Date/PCP: 11/22/19 05:08 DARIAN ORTIZ JR, MD Patient complains of: Chest pain History of Present Illness: TRISTA ESTRELLA is a 54 year old female With the following active problems 1. COPD 2. Obesity 3. Nicotine dependence 4. Obstructive sleep apnea Patient presented with respiratory distress and also incidentally mentioned chest pain in the emergency room. At the time of my evaluation patient endorses some chest pain which is precordial but it is quite atypical in description for angina. Patient also reports that she had cardiac catheterization at [place] approximately 4 years ago. No stents were placed. Presently she does not report any dyspnea or orthopnea. There is no report of PND. She continues to smoke cigarettes. There is family history of heart problems in the father. Further details are not forthcoming. Past Medical History Cardiac Medical History: Reports: Coronary Artery Disease, DVT, Hypertension Denies: Myocardial Infarction Pulmonary Medical History: Reports: Asthma, Chronic Obstructive Pulmonary Disease (COPD) Denies: Bronchitis, Pneumonia, Respiratory Failure, Tuberculosis Neurological Medical History: Reports: Migraine Denies: Seizures Endocrine Medical History: Reports: Diabetes Mellitus Type 2, Hypothyroidism Denies: Diabetes Mellitus Type 1, Hyperthyroidism GI Medical History: Reports: Gastroesophageal Reflux Disease Denies: Cirrhosis, Hepatitis Musculoskeltal Medical History: Denies: Arthritis, Gout Skin Medical History: Denies: Eczema, Psoriasis Psychiatric Medical History: Reports: Bipolar Disorder, Depression, Tobacco Dependency Hematology: Denies: Anemia, Bleeding Tendencies Past Surgical History Past Surgical History: Reports: Section - x 2, Cholecystectomy, Tubal Ligation Denies: Pacemaker Social History Smoking Status: Current Every Day Smoker Cigarettes Packs Per Day: 0.5 Frequency of Alcohol Use: None Hx Recreational Drug Use: No Drugs: None Hx Prescription Drug Abuse: No - Advance Directive Resuscitation Status: Full Code Family History Family History: Arthritis, CAD, CVA, DM, Hyperlipidemia, Hypertension, Malignancy, Thyroid Disfunction Parental Family History Reviewed: Yes - Family history of heart problems. Father Children Family History Reviewed: NA Sibling(s) Family History Reviewed.: NA Medication/Allergy Home Medications: Unobtainable 11/22/19 Allergies/Adverse Reactions: levothyroxine sodium [From Synthroid] Allergy (Verified 06/01/13 07:45) methotrexate [Methotrexate] Allergy (Verified 06/01/13 07:45) yellow dye [Yellow Dye] Allergy (Verified 06/01/13 07:45) azithromycin [Azithromycin] Adverse Reaction (Verified 06/01/13 07:45) temazepam [From Restoril] Adverse Reaction (Verified 02/10/19 07:57) Review of Systems Constitutional: ABSENT: as per HPI, anorexia, chills, fatigue, fever(s), headache(s), night sweats, weakness, weight gain, weight loss, other Eyes: ABSENT: as per HPI, visual disturbances, other Nose, Mouth, and Throat: ABSENT: as per HPI, headache(s), mouth pain, sore throat, vertigo, other Cardiovascular: PRESENT: chest pain Respiratory: PRESENT: dyspnea Gastrointestinal: ABSENT: as per HPI, abdominal pain, bloating, coffee ground emesis, constipation, diarrhea, dysphagia, heartburn, hematemesis, hematochezia, melena, nausea, vomiting, other Physical Exam Vital Signs: Temp Pulse Resp BP Pulse Ox 98.3 F 81 16 134/70 H 100 11/22/19 08:04 11/22/19 08:04 11/22/19 08:04 11/22/19 08:04 11/22/19 08:04 Intake & Output 11/21/19 11/22/19 11/23/19 06:59 06:59 06:59 Output Total 900 Balance -900 Weight 93.5 kg 86.8 kg General appearance: PRESENT: no acute distress, cooperative, obese Head exam: PRESENT: atraumatic, normocephalic Eye exam: PRESENT: conjunctiva pink, EOMI Respiratory exam: PRESENT: crackles, decreased breath sounds, symmetrical, unlabored Cardiovascular exam: PRESENT: RRR, +S1, +S2 Pulses: PRESENT: normal radial pulses GI/Abdominal exam: PRESENT: soft Rectal exam: PRESENT: deferred Neurological exam: PRESENT: alert, awake, oriented to person, oriented to place, oriented to time, oriented to situation Psychiatric exam: PRESENT: appropriate affect Skin exam: PRESENT: dry, intact, normal color Results Laboratory Results: 11/21/19 22:27 11/21/19 22:27 11/21/19 11/21/19 11/21/19 22:27 22:27 22:27 WBC 5.6 RBC 4.08 Hgb 12.9 Hct 38.9 MCV 95 MCH 31.6 MCHC 33.1 RDW 13.3 Plt Count 122 L Seg Neutrophils % 72.0 Carbonic Acid HCO3/H2CO3 Ratio ABG pH ABG pCO2 ABG pO2 ABG HCO3 ABG O2 Saturation ABG Base Excess VBG pH VBG pCO2 VBG HCO3 VBG Base Excess FiO2 Sodium 136.9 L Potassium 4.7 Chloride 80 L Carbon Dioxide 52 H* Anion Gap 5 BUN 21 H Creatinine 0.62 Est GFR ( Amer) > 60 Glucose 101 Lactic Acid 1.3 Calcium 9.1 Total Bilirubin 0.9 AST 24 Alkaline Phosphatase 64 Total Protein 6.9 Albumin 3.7 Urine Color Urine Appearance Urine pH Ur Specific [place] Urine Protein Urine Glucose (UA) Urine Ketones Urine Blood Urine Nitrite Ur Leukocyte Esterase Urine WBC (Auto) Urine RBC (Auto) 11/21/19 11/21/19 11/22/19 22:27 22:27 04:15 WBC RBC Hgb Hct MCV MCH MCHC RDW Plt Count Seg Neutrophils % Carbonic Acid 2.35 H HCO3/H2CO3 Ratio 23:1 ABG pH 7.48 H ABG pCO2 78.2 H* ABG pO2 54.6 L ABG HCO3 56.3 H ABG O2 Saturation 88.5 L ABG Base Excess 27.3 VBG pH 7.40 VBG pCO2 86.6 H* VBG HCO3 52.0 H VBG Base Excess 21.7 FiO2 30% Sodium Potassium Chloride Carbon Dioxide Anion Gap BUN Creatinine Est GFR ( Amer) Glucose Lactic Acid Calcium Total Bilirubin AST Alkaline Phosphatase Total Protein Albumin Urine Color VIVIAN Urine Appearance SLIGHTLY-CLOUDY Urine pH 6.0 Ur Specific [place] 1.025 Urine Protein 100 H Urine Glucose (UA) NEGATIVE Urine Ketones 20 H Urine Blood NEGATIVE Urine Nitrite NEGATIVE Ur Leukocyte Esterase NEGATIVE Urine WBC (Auto) 1 Urine RBC (Auto) 1 11/21/19 11/22/19 22:27 02:39 Troponin I 0.184 0.257 EKG Comments: Twelve-lead EKG independently reviewed by me. Sinus rhythm. P waves appear to be of low amplitude. Normal AV conduction, QTC [address]-T changes to suggest ischemia. Telemetry sinus rhythm Transthoracic echocardiogram 01/05/2019 Left ventricular ejection fraction greater than 65%. No pericardial effusion. Sinus rhythm Chest x-ray reviewed by me shows clear lung gutierrez Impressions: Chest X-Ray 11/21/19 22:17 IMPRESSION: No acute disease. copyright 2011 [employer]- All Rights Reserved Status: Image reviewed by me Assessment & Plan - Diagnosis (1) Elevated troponin Is this a current diagnosis for this admission?: Yes Plan: Elevated troponin in setting of respiratory distress and hypoxia likely Likely type II myocardial infarction in setting of increased oxygen requirement and myocardial ischemia secondary to this Unlikely to be acute coronary syndrome Patient reports cardiac catheterization not too long ago ( 4 years ago) with no stents placed. I would recommend outpatient follow-up so we can work this up further. We will get a copy of the cath report. Would not recommend any further risk stratification or testing at this time given presentation with respiratory distress. Description of chest pain is also quite atypical for myocardial ischemia Agree with continued use of aspirin-81 mg daily Consider statin Discontinue enoxaparin (2) Acute respiratory failure Qualifiers: Respiratory failure complication: hypoxia Qualified Code(s): J96.01 - Acute respiratory failure with hypoxia Is this a current diagnosis for this admission?: Yes Plan: COPD Respiratory failure Now much improved (3) COPD (chronic obstructive pulmonary disease) Qualifiers: COPD type: unspecified COPD Qualified Code(s): J44.9 - Chronic obstructive pulmonary disease, unspecified Is this a current diagnosis for this admission?: Yes Plan: Continues to smoke cigarettes Has established COPD with oxygen requirement Is improved since admission.
[2019-11-22] MEDS: PAROXETINE HCL 20 MG TABLET PO SCH (09:38)
[2019-11-22] MEDS: ASPIRIN 325 MG TABLET PO SCH (09:38)
[2019-11-22] MEDS ORDERED: DILTIAZEM HCL INJ 25 MG/5 ML VIAL IV ONE (13:02)
[2019-11-22] MEDS ORDERED: DILTIAZEM HCL 60 MG TABLET PO SCH (13:06)
[2019-11-22] MEDS ORDERED: DILTIAZEM HCL INJ 25 MG/5 ML VIAL ONE (13:09)
--- NOTE | 2019-11-22 14:08 | Progress Note ---
Provider Note Provider Note: Patient suddenly went into an episode of tachycardia today. EKG revealed atrial flutter with 2:1 block. Patient states that she does not know if she is ever had A. fib before or atrial flutter. I will give a dose of diltiazem 20 mg IV and start patient on oral diltiazem 60 mg every 6 hours. If heart rate still stays elevated we will convert to a diltiazem drip to the night. Will place order for echo cardiogram for evaluation of new onset A. Flutter. Continue on therapeutic Lovenox.
--- NOTE | 2019-11-22 14:34 | EKG REPORT ---
SEVERITY:- NORMAL ECG - SINUS RHYTHM : Confirmed by: Pearl Valladares MD 22-Nov-2019 14:33:07
--- NOTE | 2019-11-22 14:34 | EKG REPORT ---
SEVERITY:- ABNORMAL ECG - A-FLUTTER W/ PREDOM 2:1 AV BLOCK, A-RATE 306 : Confirmed by: Pearl Valladares MD 22-Nov-2019 14:33:03
[2019-11-22] MEDS ORDERED: DILTIAZEM HCL/D5W 125 MG/125 ML RTUINJ IV PRN ×2 (16:08→16:46)
[2019-11-22] MEDS ORDERED: METOPROLOL TARTRATE PF/INJ 5 MG/5 ML SDV IV PRN (21:14)
[2019-11-22] MEDS ORDERED: DILTIAZEM HCL 90 MG TABLET PO ONE (23:00)
[2019-11-22] MEDS ORDERED: DILTIAZEM HCL 90 MG TABLET ONE (23:43)
[2019-11-23] MEDS: IPRATROPIUM/ALBUTEROL 0.5-2.5 MG/3 ML AMPUL NEB SCH ×3 (00:08→16:34)
[2019-11-23] MEDS ORDERED: DILTIAZEM HCL 120 MG CAP.SR.24H PO ONE (02:00)
--- NOTE | 2019-11-23 03:33 | Progress Note ---
Provider Note Provider Note: Critical care note for 11/23/2019 Critical care start time: 22:45 Critical care issue: Modification of diltiazem regimen. Patient's nurse asked me to evaluate the patient for discontinuation of her Cardizem infusion and conversion to oral Cardizem therapy. Patient's heart rate was noted to be sinus rhythm in the 80s and her vital signs were normal on a continuous Cardizem infusion at 15 mg/h. Heart showed a regular rate and rhythm without murmurs, clicks, gallops or rubs. Respirations were unlabored and lung gutierrez were clear bilaterally. Discussion was undertaken about converting patient to oral Cardizem therapy however she was not able to take Cardizem CD due to the presence of yellow dye #3. A generic long-acting Cardizem product was located in the pharmacy with no presence of yellow dye #3. The patient's diltiazem infusion was discontinued per protocol and she was started on diltiazem orally with a 90 mg instant release dose followed after 3 hours by a 360 mg dose of 24-hour sustained-release generic diltiazem. 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 Her rhythm remained sinus and her other vital signs were in the normal range. Critical care end time: 03:32 Total critical care time: 19 minutes
[2019-11-23] MEDS: ENOXAPARIN SODIUM INJ 100 MG/1 ML DISP.SYRIN SUBCUT SCH ×2 (05:19→17:05)
[2019-11-23 06:06] LABS: HEMATOCRIT 36.9 % (36.0-47.0); HEMOGLOBIN 12.1 g/dL (12.0-15.5); MEAN CORPUSCULAR HGB CONC 32.8 g/dL (32.0-36.0); MEAN CORPUSCULAR VOLUME 95 fl (80-97); PLATELET COUNT 129 10^3/uL (150-450); RED CELL DISTRIBUTION WIDTH 13.4 % (11.5-14.0); WHITE BLOOD COUNT 5.2 10^3/uL (4.0-10.5)
[2019-11-23 06:07] LABS: APPEARANCE,URINE CLEAR; BILIRUBIN,URINE NEGATIVE (NEGATIVE); COLOR,URINE YELLOW; GLUCOSE, URINE NEGATIVE (NEGATIVE); KETONES,URINE NEGATIVE (NEGATIVE); LEUKOCYTE ESTERASE,URINE NEGATIVE (NEGATIVE); NITRITE,URINE NEGATIVE (NEGATIVE); PROTEIN,URINE 30 mg/dL (NEGATIVE); URINE SPECIFIC GRAVITY 1.016
[2019-11-23 06:22] LABS: BLOOD UREA NITROGEN 15 mg/dL (7-20); CALCIUM 8.2 mg/dL (8.4-10.2); CHLORIDE 83 mmol/L (98-107); GLUCOSE 86 mg/dL (75-110); POTASSIUM 3.7 mmol/L (3.6-5.0)
[2019-11-23 06:35] LABS: ANION GAP 9 (5-19); CARBON DIOXIDE 44 mmol/L (22-30)
--- NOTE | 2019-11-23 09:44 | PDOC PROGRESS REPORT ---
Subjective Progress Note for:: 11/23/19 Subjective:: Breathing is stable. Patient is at her baseline oxygen requirement. No fever or elevated white blood cell count. Positive blood cultures likely contaminants. Reason For Visit: MORBID OBESITY HYPOVENTILATION, HYPERCAPNIC Physical Exam Vital Signs: Temp Pulse Resp BP Pulse Ox 98.4 F 82 20 120/60 99 11/23/19 08:51 11/23/19 08:51 11/23/19 08:51 11/23/19 08:51 11/23/19 08:51 Intake & Output 11/22/19 11/23/19 11/24/19 06:59 06:59 06:59 Intake Total 1817 Output Total 900 450 Balance -900 1367 Weight 93.5 kg 86.8 kg General appearance: PRESENT: no acute distress, cooperative, morbidly obese, well-developed Head exam: PRESENT: atraumatic, normocephalic Eye exam: PRESENT: conjunctiva pink. ABSENT: scleral icterus Ear exam: PRESENT: normal external ear exam. ABSENT: bleeding, drainage Mouth exam: PRESENT: moist, tongue midline Respiratory exam: PRESENT: clear to auscultation emerson, symmetrical, unlabored. ABSENT: rales, rhonchi, tachypnea, wheezes Cardiovascular exam: PRESENT: RRR, +S1, +S2. ABSENT: diastolic murmur, systolic murmur GI/Abdominal exam: PRESENT: normal bowel sounds, soft, other - Protuberant abdomen. ABSENT: diminished bowel sounds, distended, tenderness Rectal exam: PRESENT: deferred Gentrourinary exam: ABSENT: indwelling catheter Extremities exam: PRESENT: pedal edema, other - Healing scratches left lateral malleolus with mild ecchymosis and tenderness Musculoskeletal exam: PRESENT: tenderness - Left ankle. ABSENT: ambulatory - Limited by pain. See physical therapy notes. Increased pain with weightbearing bilateral ankles. Patient only took several steps. Neurological exam: PRESENT: alert, awake, oriented to person, oriented to place, oriented to situation, CN II-XII grossly intact Psychiatric exam: PRESENT: flat affect. ABSENT: agitated, anxious Skin exam: PRESENT: abrasion - Healing abrasion left lateral malleolus, other - Slight ecchymosis left ankle Results Laboratory Results: 11/23/19 05:28 11/23/19 05:28 11/23/19 11/23/19 11/23/19 05:23 05:28 05:28 WBC 5.2 RBC 3.90 Hgb 12.1 Hct 36.9 MCV 95 MCH 31.0 MCHC 32.8 RDW 13.4 Plt Count 129 L Sodium 136.2 L Potassium 3.7 Chloride 83 L Carbon Dioxide 44 H* Anion Gap 9 BUN 15 Creatinine 0.51 L Est GFR ( Amer) > 60 Glucose 86 Calcium 8.2 L Urine Color YELLOW Urine Appearance CLEAR Urine pH 9.0 Ur Specific [place] 1.016 Urine Protein 30 H Urine Glucose (UA) NEGATIVE Urine Ketones NEGATIVE Urine Blood NEGATIVE Urine Nitrite NEGATIVE Ur Leukocyte Esterase NEGATIVE Urine WBC (Auto) 0 Urine RBC (Auto) 0 11/21/19 23:14 Blood Blood Culture (PCR) - Final 11/21/19 11/22/19 11/22/19 22:27 02:39 11:35 Troponin I 0.184 0.257 0.271 Impressions: Chest X-Ray 11/21/19 22:17 IMPRESSION: No acute disease. copyright 2010 [employer]- All Rights Reserved Assessment and Plan - Diagnosis (1) Paroxysmal atrial fibrillation Is this a current diagnosis for this admission?: Yes (2) Acute respiratory failure with hypoxia and hypercapnia Is this a current diagnosis for this admission?: Yes (3) NSTEMI (non-ST elevated myocardial infarction) Is this a current diagnosis for this admission?: Yes (5) Morbid obesity with BMI of 40.0-44.9, adult Is this a current diagnosis for this admission?: Yes (6) COPD (chronic obstructive pulmonary disease) Qualifiers: COPD type: unspecified COPD Qualified Code(s): J44.9 - Chronic obstructive pulmonary disease, unspecified Is this a current diagnosis for this admission?: Yes (7) Metabolic alkalosis with respiratory acidosis Is this a current diagnosis for this admission?: Yes (8) Depression Qualifiers: Depression Type: unspecified Qualified Code(s): F32.9 - Major depressive disorder, single episode, unspecified Is this a current diagnosis for this admission?: Yes (9) Nicotine dependence Qualifiers: Nicotine product type: cigarettes Substance use status: uncomplicated Qualified Code(s): F17.210 - Nicotine dependence, cigarettes, uncomplicated Is this a current diagnosis for this admission?: Yes - Plan Summary Summary: 11/23/2019 Paroxysmal atrial fibrillation-stable on diltiazem. We will institute oral anticoagulation. Chronic obstructive pulmonary disease is stable. Will change to daily inhaler with Trelegy and return to [facility] as an outpatient. Encourage tobacco cessatio n. Elevated troponin-likely an STEMI from supply/demand mismatch. Troponin still trending up. We will recheck tomorrow. Morbid obesity-encourage weight loss. Aggressive dietary management. The acute respiratory failure is resolved. The patient is back on her home oxygen. Metabolic alkalosis-unsure of the exact etiology. Continues to improve. Consider short course of Diamox. Depression-continue SSRI therapy Positive blood culture is likely a contaminant Due to difficulty ambulating I recommended senior care placement for short- term rehab. Ankle x-ray did not reveal any fractures. - Time Time Spent with patient: 15-24 minutes Medications reviewed and adjusted accordingly: Yes Anticipated discharge: SNF Within: within 24 hours
[2019-11-23] MEDS: PAROXETINE HCL 20 MG TABLET PO SCH (10:31)
[2019-11-23] MEDS: ASPIRIN 325 MG TABLET PO SCH (10:31)
--- NOTE | 2019-11-23 11:11 | RADIOLOGY REPORT (SQ) ---
EXAM DESCRIPTION: ANKLE LEFT COMPLETE COMPLETED DATE/TIME: 11/23/2019 10:50 am REASON FOR STUDY: Left ankle pain and bruising COMPARISON: None. NUMBER OF VIEWS: Three views. TECHNIQUE: AP, lateral, and oblique radiographic images acquired of the left ankle. LIMITATIONS: None. FINDINGS: MINERALIZATION: Normal. BONES: No definite acute fracture. Mild midfoot osteophytosis. JOINTS: Small joint effusion. No dislocation. SOFT TISSUES: Soft tissue swelling about the ankle, greatest medially. OTHER: No other significant finding. IMPRESSION: Soft tissue swelling about the ankle, greatest medially, without evidence of acute bony abnormality. TECHNICAL DOCUMENTATION: JOB ID: [id number] 2010 [employer]- All Rights Reserved Reading location - IP/workstation name: [email or web address]
--- NOTE | 2019-11-23 17:23 | XCELERA REPORT ---
[address] [address] Transthoracic Echocardiogram Report Name: TRISTA ESTRELLA Age: 54 yrs Gender: Female : 1965 Patient Status: Inpatient Patient Location: [address] [place] [address] Study Date: 11/23/2019 09:53 AM History: Atrial fibrillation Chest pain Height: 57 in Weight: 200 lb BSA: 1.8 m2 Procedure: A complete two-dimensional transthoracic echocardiogram was performed (2D, M-mode, spectral and color flow Doppler). The study was technically difficult with many images being suboptimal in quality. Reason For Study: new onset afib (miky kanika to read) Previous Evaluation: No previous studies were available. History: Smoker: current. Shortness of breath. HTN. Ordering Physician: DAISY DHILLON Performed By: Amy Campos Interpretation Summary The study was technically difficult with many images being suboptimal in quality. Left ventricular systolic function is normal. The Ejection Fraction estimate is 65-70% The right ventricle is normal in size and function. There is no aortic valve stenosis There is a trace amount of mitral regurgitation There is a trace amount of tricuspid regurgitation There is no pericardial effusion. MMode/2D Measurements & Calculations RVDd: 3.0 cm LVIDd: 4.2 cm FS: 42.7 % Ao root diam: 2.6 cm IVSd: 0.83 cm LVIDs: 2.4 cm EDV(Teich): 80.7 ml Ao root area: 5.3 cm2 LVPWd: 0.82 cm ESV(Teich): 20.8 ml LA dimension: 3.8 cm EF(Teich): 74.2 % Doppler Measurements & Calculations MV E max coleman: MV P1/2t max coleman: Ao V2 max: LV V1 max P.2 cm/sec 98.7 cm/sec 149.4 cm/sec 7.7 mmHg MV A max coleman: MV P1/2t: 61.2 msec Ao max P.9 mmHgLV V1 max: 89.3 cm/sec MVA(P1/2t): 3.6 cm2 138.7 cm/sec MV E/A: 1.1 MV dec slope: 472.8 cm/sec2 MV dec time: 0.22 sec PA V2 max: TR max coleman: MV P1/2t-pr_phl: 104.1 cm/sec 272.3 cm/sec 61.2 msec PA max P.3 mmHgTR max P.7 mmHg Left Ventricle The left ventricle is grossly normal size. There is borderline concentric left ventricular hypertrophy. Left ventricular systolic function is normal. The Ejection Fraction estimate is 65-70%. The transmitral spectral Doppler flow pattern is normal for age. Right Ventricle The right ventricle is normal in size and function. Atria The right atrium is normal. The left atrial size is normal. There is no Doppler evidence for an interatrial shunt. Mitral Valve The mitral valve is grossly normal. There is a trace amount of mitral regurgitation. Aortic Valve The aortic valve is not well visualized secondary to technical limitations. The aortic valve opens well. There is no aortic valve stenosis. No aortic regurgitation is present. Tricuspid Valve The tricuspid valve is not well visualized, but is grossly normal. There is a trace amount of tricuspid regurgitation. Tricuspid regurgitation jet envelope not well defined to measure RV systolic pressure accurately. Pulmonic Valve The pulmonic valve is not well visualized. There is a trace or physiologic amount of pulmonic regurgitation. Great Vessels The aortic root is normal size. The inferior vena cava appeared normal and decreased > 50% with respiration (RAP 5-10 mmHg). Effusions There is no pericardial effusion. : DAISY DHILLON Anil
--- NOTE | 2019-11-23 17:28 | PDOC PROGRESS REPORT ---
Subjective Progress Note for:: 11/23/19 Subjective:: Patient was seen and examined. Resting comfortably. Overnight had atrial fibrillation with rapid ventricular response. Converted spontaneously while attempting rate control. Presently no complaints no palpitations. Maintaining sinus rhythm. Reason For Visit: MORBID OBESITY HYPOVENTILATION, HYPERCAPNIC Physical Exam Vital Signs: Temp Pulse Resp BP Pulse Ox 98.1 F 88 22 H 125/67 95 11/23/19 16:49 11/23/19 16:49 11/23/19 16:49 11/23/19 16:49 11/23/19 16:49 Intake & Output 11/22/19 11/23/19 11/24/19 06:59 06:59 06:59 Intake Total 1817 260 Output Total 900 450 300 Balance -900 1367 -40 Weight 93.5 kg 86.8 kg General appearance: PRESENT: cooperative, obese, well-developed, well-nourished Head exam: PRESENT: atraumatic Eye exam: PRESENT: conjunctiva pink Mouth exam: PRESENT: moist Respiratory exam: PRESENT: crackles, decreased breath sounds, symmetrical Cardiovascular exam: PRESENT: RRR, +S1, +S2 Pulses: PRESENT: normal radial pulses GI/Abdominal exam: PRESENT: soft Extremities exam: PRESENT: calf tenderness Musculoskeletal exam: PRESENT: normal inspection Neurological exam: PRESENT: alert, awake, oriented to person, oriented to place, oriented to time, oriented to situation Psychiatric exam: PRESENT: appropriate affect Skin exam: PRESENT: dry, intact, normal color Results Laboratory Results: 11/23/19 05:28 11/23/19 05:28 11/23/19 11/23/19 11/23/19 05:23 05:28 05:28 WBC 5.2 RBC 3.90 Hgb 12.1 Hct 36.9 MCV 95 MCH 31.0 MCHC 32.8 RDW 13.4 Plt Count 129 L Sodium 136.2 L Potassium 3.7 Chloride 83 L Carbon Dioxide 44 H* Anion Gap 9 BUN 15 Creatinine 0.51 L Est GFR ( Amer) > 60 Glucose 86 Calcium 8.2 L Urine Color YELLOW Urine Appearance CLEAR Urine pH 9.0 Ur Specific [place] 1.016 Urine Protein 30 H Urine Glucose (UA) NEGATIVE Urine Ketones NEGATIVE Urine Blood NEGATIVE Urine Nitrite NEGATIVE Ur Leukocyte Esterase NEGATIVE Urine WBC (Auto) 0 Urine RBC (Auto) 0 11/21/19 23:14 Blood Blood Culture (PCR) - Final 11/21/19 11/22/19 11/22/19 22:27 02:39 11:35 Troponin I 0.184 0.257 0.271 EKG Comments: Twelve-lead EKG 11/22/2019. Independently reviewed by me. Atrial fibrillation rapid ventricular response Impressions: Chest X-Ray 11/21/19 22:17 IMPRESSION: No acute disease. copyright 2010 [employer]- All Rights Reserved Ankle X-Ray 11/23/19 00:00 IMPRESSION: Soft tissue swelling about the ankle, greatest medially, without evidence of acute bony abnormality. Assessment & Plan - Diagnosis (1) Elevated troponin Is this a current diagnosis for this admission?: Yes (2) Acute respiratory failure Qualifiers: Respiratory failure complication: hypoxia Qualified Code(s): J96.01 - Acute respiratory failure with hypoxia Is this a current diagnosis for this admission?: Yes Plan: Much improved. Cessation of cigarette smoking Bronchodilator therapy (3) COPD (chronic obstructive pulmonary disease) Qualifiers: COPD type: unspecified COPD Qualified Code(s): J44.9 - Chronic obstructive pulmonary disease, unspecified Is this a current diagnosis for this admission?: Yes Plan: Respiratory exam is much improved. No significant wheezing today Counseled regarding cessation of smoking Bronchodilator therapy (4) Nicotine dependence Qualifiers: Nicotine product type: cigarettes Substance use status: uncomplicated Qualified Code(s): F17.210 - Nicotine dependence, cigarettes, uncomplicated Is this a current diagnosis for this admission?: Yes Plan: Patient has been a longtime cigarette smoker. Given presentation with respiratory failure and also COPD I counseled her regarding cigarette smoking cessation Patient tells me is hard for her to quit. She is going to try (5) Atrial fibrillation Qualifiers: Atrial fibrillation type: paroxysmal Qualified Code(s): I48.0 - Paroxysmal atrial fibrillation Is this a current diagnosis for this admission?: Yes Plan: Paroxysmal atrial fibrillation. Brief episode Terminated on its own Agree with low-dose calcium channel tr to suppress triggers for initiation of atrial fibrillation
[2019-11-24] MEDS: IPRATROPIUM/ALBUTEROL 0.5-2.5 MG/3 ML AMPUL NEB SCH (00:54)
[2019-11-24] MEDS: ENOXAPARIN SODIUM INJ 100 MG/1 ML DISP.SYRIN SUBCUT SCH (06:21)
[2019-11-24] MEDS ORDERED: IPRATROPIUM/ALBUTEROL 0.5-2.5 MG/3 ML AMPUL NEB PRN (06:28)
[2019-11-24 07:47] LABS: BLOOD UREA NITROGEN 11 mg/dL (7-20); CALCIUM 8.3 mg/dL (8.4-10.2); CHLORIDE 90 mmol/L (98-107); GLUCOSE 86 mg/dL (75-110); POTASSIUM 3.8 mmol/L (3.6-5.0)
[2019-11-24 08:04] LABS: ANION GAP 5 (5-19)
[2019-11-24 08:08] LABS: CARBON DIOXIDE 41 mmol/L (22-30)
[2019-11-24] MEDS ORDERED: SERTRALINE HCL 50 MG TABLET PO SCH (10:00)
[2019-11-24] MEDS ORDERED: DILTIAZEM HCL 120 MG CAP.SR.24H PO SCH (10:00)
[2019-11-24] MEDS ORDERED: FLUTICASONE/UMECLIDIN/VILANTER 100-62.5-25 MCG/DOSE IH SCH (10:00)
[2019-11-24] MEDS: APIXABAN 5 MG TABLET PO SCH ×2 (10:28→17:23)
[2019-11-24] MEDS: ASPIRIN 325 MG TABLET PO SCH (10:28)
[2019-11-24 13:32] VITALS: BP 134/70
--- NOTE | 2019-11-24 14:39 | PDOC DISCHARGE SUMMARY ---
Impression - Admit/DC Date/PCP Admission Date/Primary Care Provider: 11/22/19 05:08 DARIAN ORTIZ JR, MD Discharge Date: 11/24/19 - Discharge Diagnosis (1) Paroxysmal atrial fibrillation Is this a current diagnosis for this admission?: Yes (2) Acute respiratory failure with hypoxia and hypercapnia Is this a current diagnosis for this admission?: Yes (3) NSTEMI (non-ST elevated myocardial infarction) Is this a current diagnosis for this admission?: Yes (4) Left ankle pain Is this a current diagnosis for this admission?: Yes (5) Morbid obesity with BMI of 40.0-44.9, adult Is this a current diagnosis for this admission?: Yes (6) COPD (chronic obstructive pulmonary disease) Is this a current diagnosis for this admission?: Yes (7) Metabolic alkalosis with respiratory acidosis Is this a current diagnosis for this admission?: Yes (8) Depression Is this a current diagnosis for this admission?: Yes (9) Nicotine dependence Is this a current diagnosis for this admission?: Yes - Assessment Summary: 11/23/2019 Paroxysmal atrial fibrillation-stable on diltiazem. We will institute oral anticoagulation. Chronic obstructive pulmonary disease is stable. Will change to daily inhaler with Trelegy and return to [facility] as an outpatient. Encourage tobacco cessation. Elevated troponin-likely an STEMI from supply/demand mismatch. Troponin still trending up. We will recheck tomorrow. Morbid obesity-encourage weight loss. Aggressive dietary management. The acute respiratory failure is resolved. The patient is back on her home oxygen. Metabolic alkalosis-unsure of the exact etiology. Continues to improve. Consider short course of Diamox. Depression-continue SSRI therapy Positive blood culture is likely a contaminant Due to difficulty ambulating I recommended half-way placement for short- term rehab. Ankle x-ray did not reveal any fractures. - Additional Information Resuscitation Status: Full Code Discharge Diet: Cardiac Discharge Activity: Activity As Tolerated Referrals: DARIAN ORTIZ JR, MD [Primary Care Provider] - Follow up as needed ARTURO GUERRA MD [ACTIVE STAFF] - Prescriptions: Aspirin [Adult Low Dose Aspirin EC] 81 mg PO DAILY 30 Days #30 tablet. Diltiazem HCl [Diltiazem ER] 300 mg PO DAILY 30 Days #30 tab.er.24h Apixaban [Eliquis 5 mg Tablet] 5 mg PO BID 30 Days #60 tablet Home Medications: Albuterol Sulfate [Proair HFA Inhalation Aerosol 8.5 gm MDI] 2 puff IH Q4HP PRN 11/22/19 Glycopyrrolate/Formoterol Fum [Bevespi Aerosphere Inhaler] 2 puff IH BID 11/22/19 Sertraline HCl [Zoloft 50 mg Tablet] 50 mg PO DAILY 11/22/19 Apixaban [Eliquis 5 mg Tablet] 5 mg PO BID 30 Days #60 tablet 11/24/19 Aspirin [Adult Low Dose Aspirin EC] 81 mg PO DAILY 30 Days #30 tablet. 11/24/19 Diltiazem HCl [Diltiazem ER] 300 mg PO DAILY 30 Days #30 tab.er.24h 11/24/19 History of Present Illiness History of Present Illness: TRISTA ESTRELLA is a 54 year old female female with a past medical history of, morbid obesity, oxygen dependent COPD, chronic bronchitis, obstructive sleep apnea and persistent alcohol and tobacco dependence. She presents via EMS with shortness of breath and falls with recurrent muscular jerking. She admits to taking [id number] sleeping medicine. In the emergency department she is found to have a VBG with a PCO2 of 86, myoclonic jerks and an elevated troponin. EKG is unchanged from baseline and she is referred to the hospitalist for admission. She cannot recall the name of any of her medications with exception to Paxil. Hospital Course Hospital Course: The patient had a fairly unremarkable hospital course. With the use of diltiazem her atrial fibrillation converted to sinus rhythm. She was complaining of ankle pain status post a fall at home. Her left ankle was slightly swollen. X-ray revealed no fracture. Today she did very well with therapy and he is safe to discharge home. She is back to her baseline oxygen requirements. Physical Exam Vital Signs: Temp Pulse Resp BP Pulse Ox 98.6 F 83 19 134/70 H 96 11/24/19 12:28 11/24/19 12:28 11/24/19 12:28 11/24/19 12:28 11/24/19 12:28 Intake & Output 11/23/19 11/24/19 11/25/19 06:59 06:59 06:59 Intake Total 1817 1016 222 Output Total 450 1500 200 Balance 1367 -484 22 Weight 86.8 kg 88.1 kg General appearance: PRESENT: no acute distress, morbidly obese, well-developed Respiratory exam: PRESENT: clear to auscultation emerson, symmetrical, unlabored. ABSENT: rales, rhonchi, tachypnea, wheezes Cardiovascular exam: PRESENT: RRR, +S1, +S2 GI/Abdominal exam: PRESENT: normal bowel sounds, soft. ABSENT: tenderness Results Laboratory Results: WBC 5.2 10^3/uL (4.0-10.5) 11/23/19 05:28 RBC 3.90 10^6/uL (3.72-5.28) 11/23/19 05:28 Hgb 12.1 g/dL (12.0-15.5) 11/23/19 05:28 Hct 36.9 % (36.0-47.0) 11/23/19 05:28 MCV 95 fl (80-97) 11/23/19 05:28 MCH 31.0 pg (27.0-33.4) 11/23/19 05:28 MCHC 32.8 g/dL (32.0-36.0) 11/23/19 05:28 RDW 13.4 % (11.5-14.0) 11/23/19 05:28 Plt Count 129 10^3/uL (150-450) L 11/23/19 05:28 Lymph % (Auto) 15.3 % (13-45) 11/21/19 22:27 Thayer % (Auto) 12.2 % (3-13) 11/21/19 22:27 Eos % (Auto) 0.0 % (0-6) 11/21/19:27 Baso % (Auto) 0.5 % (0-2) 11/21/19 22:27 Absolute Neuts (auto) 4.0 10^3/uL (1.7-8.2) 11/21/19: Absolute Lymphs (auto) 0.8 10^3/uL (0.5-4.7) 11/21/19: Absolute Monos (auto) 0.7 10^3/uL (0.1-1.4) 11/21/19: Absolute Eos (auto) 0.0 10^3/uL (0.0-0.6) 11/21/19 22:27 Absolute Basos (auto) 0.0 10^3/uL (0.0-0.2) 11/21/19 22:27 Seg Neutrophils % 72.0 % (42-78) 11/21/19 22:27 Carbonic Acid 2.35 mmol/L (1.05-1.35) H 11/22/19 04:15 HCO3/H2CO3 Ratio 23:1 11/22/19 04:15 ABG pH 7.48 (7.35-7.45) H 11/22/19 04:15 ABG pCO2 78.2 mmHg (35-45) H* 11/22/19 04:15 ABG pO2 54.6 mmHg (80-100) L 11/22/19 04:15 ABG HCO3 56.3 mmol/L (20-24) H 11/22/19 04:15 ABG Total CO2 58.7 mmol/L (21-25) H 11/22/19 04:15 ABG O2 Saturation 88.5 % (94-98) L 11/22/19 04:15 ABG Base Excess 27.3 mmol/L 11/22/19 04:15 VBG pH 7.40 (7.30-7.42) 11/21/19 22:27 VBG pCO2 86.6 mmHg (35-63) H* 11/21/19 22:27 VBG HCO3 52.0 mmol/L (20-32) H 11/21/19 22:27 VBG Base Excess 21.7 mmol/L 11/21/19 22:27 FiO2 30% 11/22/19 04:15 Sodium 136.2 mmol/L (137-145) L 11/24/19 07:06 Potassium 3.8 mmol/L (3.6-5.0) 11/24/19 07:06 Chloride 90 mmol/L (98-107) L 11/24/19 07:06 Carbon Dioxide 41 mmol/L (22-30) H* 11/24/19 07:06 Anion Gap 5 (5-19) 11/24/19 07:06 BUN 11 mg/dL (7-20) 11/24/19 07:06 Creatinine 0.53 mg/dL (0.52-1.25) 11/24/19 07:06 Est GFR ( Amer) > 60 (>60) 11/24/19 07:06 Est GFR (MDRD) Non-Af > 60 (>60) 11/24/19 07:06 Glucose 86 mg/dL (75-110) 11/24/19 07:06 POC Glucose 103 mg/dL (70-110) 11/21/19 22:15 Lactic Acid 1.3 mmol/L (0.7-2.1) 11/21/19 22:27 Calcium 8.3 mg/dL (8.4-10.2) L 11/24/19 07:06 Total Bilirubin 0.9 mg/dL (0.2-1.3) 11/21/19 22:27 Direct Bilirubin 0.3 mg/dL (0.0-0.4) 11/21/19 22:27 Neonat Total Bilirubin Not Reportable 11/21/19 22:27 Neonat Direct Bilirubin Not Reportable 11/21/19 22:27 Neonat Indirect Bili Not Reportable 11/21/19 22:27 AST 24 U/L (14-36) 11/21/19 22:27 ALT 22 U/L (<35) 11/21/19 22:27 Alkaline Phosphatase 64 U/L (38-126) 11/21/19 22:27 Troponin I 0.119 ng/mL 11/24/19 07:06 Total Protein 6.9 g/dL (6.3-8.2) 11/21/19 22:27 Albumin 3.7 g/dL (3.5-5.0) 11/21/19 22:27 Urine Color YELLOW 11/23/19 05:23 Urine Appearance CLEAR 11/23/19 05:23 Urine pH 9.0 (5.0-9.0) 11/23/19 05:23 Ur Specific [place] 1.016 11/23/19 05:23 Urine Protein 30 mg/dL (NEGATIVE) H 11/23/19 05:23 Urine Glucose (UA) NEGATIVE mg/dL (NEGATIVE) 11/23/19 05:23 Urine Ketones NEGATIVE mg/dL (NEGATIVE) 11/23/19 05:23 Urine Blood NEGATIVE (NEGATIVE) 11/23/19 05:23 Urine Nitrite NEGATIVE (NEGATIVE) 11/23/19 05:23 Urine Bilirubin NEGATIVE (NEGATIVE) 11/23/19 05:23 Urine Urobilinogen 4.0 mg/dL (<2.0) H 11/23/19 05:23 Ur Leukocyte Esterase NEGATIVE (NEGATIVE) 11/23/19 05:23 Urine WBC (Auto) 0 /HPF 11/23/19 05:23 Urine RBC (Auto) 0 /HPF 11/23/19 05:23 U Hyaline Cast (Auto) 4 /LPF 11/21/19 22:27 Squamous Epi Cells Auto 2 /HPF 11/23/19 05:23 Urine Mucus (Auto) RARE /LPF 11/23/19 05:23 Urine Ascorbic Acid NEGATIVE (NEGATIVE) 11/23/19 05:23 Influenza A (Rapid) NEGATIVE (NEGATIVE) 11/21/19 23:14 Influenza B (Rapid) NEGATIVE (NEGATIVE) 11/21/19 23:14 11/21/19 11/22/19 11/22/19 22:27 02:39 11:35 Troponin I 0.184 0.257 0.271 11/24/19 07:06 Troponin I 0.119 Impressions: Chest X-Ray 11/21/19 22:17 IMPRESSION: No acute disease. copyright 2011 [employer]- All Rights Reserved Ankle X-Ray 11/23/19 00:00 IMPRESSION: Soft tissue swelling about the ankle, greatest medially, without evidence of acute bony abnormality. Plan Health Concerns: Concern for recurrence of atrial fibrillation Plan of Treatment: Stop metoprolol. Start diltiazem long-acting 300 mg daily as well as apixaban 5 mg twice daily for paroxysmal atrial fibrillation. Home health is been requested to continue education with new medications and monitor for recurrence of atrial fibrillation. A front wheel walker has been requested as well as home physical therapy. Goals: Improve ambulation. Stability of atrial fibrillation. Monitor medications for compliance and tolerability. Time Spent: Greater than 30 Minutes Stroke Is this a Stroke Patient?: No Acute Heart Failure - Is this a Heart Failure Patient?: No
== END 2019-11-24 18:11 | disposition home health service (06) | DRG 280 ==
LOC: ER 22:00 → EH 11-22 05:08 → 3S 11-22 07:58
PROVIDERS: ADMIT Internal Medicine; ATTEND Hospitalist
PROC: 5A09357 Assistance with Respiratory Ventilation, Less than 24 Consecutive Hours, Continuous Positive Airway Pressure (ICD-10-PCS; principal; 2019-11-22)
DX: I48.0 Paroxysmal atrial fibrillation (principal); J96.02 Acute respiratory failure with hypercapnia; I21.4 Non-ST elevation (NSTEMI) myocardial infarction; J96.01 Acute respiratory failure with hypoxia; Z68.41 Body mass index [BMI] 40.0-44.9, adult; E87.3 Alkalosis; G25.3 Myoclonus; Z99.81 Dependence on supplemental oxygen; I11.0 Hypertensive heart disease with heart failure; I50.9 Heart failure, unspecified; M25.572 Pain in left ankle and joints of left foot; E66.01 Morbid (severe) obesity due to excess calories; J44.9 Chronic obstructive pulmonary disease, unspecified; G47.33 Obstructive sleep apnea (adult) (pediatric); F10.20 Alcohol dependence, uncomplicated; W19.XXXA Unspecified fall, initial encounter; F17.210 Nicotine dependence, cigarettes, uncomplicated; I25.10 Atherosclerotic heart disease of native coronary artery without angina pectoris; E11.9 Type 2 diabetes mellitus without complications; E03.9 Hypothyroidism, unspecified; K21.9 Gastro-esophageal reflux disease without esophagitis; F31.9 Bipolar disorder, unspecified; R26.2 Difficulty in walking, not elsewhere classified; Y92.009 Unspecified place in unspecified non-institutional (private) residence as the place of occurrence of the external cause; Z91.14 Patient's other noncompliance with medication regimen; Z71.6 Tobacco abuse counseling; Z71.3 Dietary counseling and surveillance; Z79.01 Long term (current) use of anticoagulants; Z79.82 Long term (current) use of aspirin; Z79.899 Other long term (current) drug therapy; Z86.718 Personal history of other venous thrombosis and embolism; Z88.8 Allergy status to other drugs, medicaments and biological substances; Z91.02 Food additives allergy status; Z83.3 Family history of diabetes mellitus; Z84.89 Family history of other specified conditions; Z82.49 Family history of ischemic heart disease and other diseases of the circulatory system
CPT/HCPCS: 36415; 71045; 80048; 80053; 81001; 82803; 82962; 83605; 84484; 85025; 85027; 87040; 87077; 87150; 87804; 93005; 93010; 93306; 94660; 94799; 96374; 99291; J1650; J1940; J3490; J7030; J7620

== ENCOUNTER 2020-01-20 12:25 | Emergency (ER) | payer MEDICAID ==
[2020-01-20 13:04] LABS: ABSOLUTE EOSINOPHILS # (AUTO) 0.1 10^3/uL (0.0-0.6); ABSOLUTE MONOCYTES (AUTO) 0.5 10^3/uL (0.1-1.4); ABSOLUTE NEUT (AUTO) 4.6 10^3/uL (1.7-8.2); BASOPHILS % (AUTO) 0.5 % (0-2); EOSINOPHILS % (AUTO) 1.7 % (0-6); HEMATOCRIT 38.5 % (36.0-47.0); HEMOGLOBIN 12.7 g/dL (12.0-15.5); LYMPHOCYTES % (AUTO) 15.6 % (13-45); MEAN CORPUSCULAR HEMOGLOBIN 30.6 pg (27.0-33.4); MEAN CORPUSCULAR HGB CONC 32.9 g/dL (32.0-36.0); MEAN CORPUSCULAR VOLUME 93 fl (80-97); MONOCYTES % (AUTO) 8.1 % (3-13); PLATELET COUNT 207 10^3/uL (150-450); RED BLOOD COUNT 4.14 10^6/uL (3.72-5.28); RED CELL DISTRIBUTION WIDTH 13.9 % (11.5-14.0); SEGMENTED NEUTROPHILS % (AUTO) 74.1 % (42-78); TOTAL CELLS COUNTED % (AUTO) 100 %; WHITE BLOOD COUNT 6.3 10^3/uL (4.0-10.5)
--- NOTE | 2020-01-20 13:07 | ER Document Report ---
ED General - General Chief Complaint: Epigastric Pain Stated Complaint: CHEST PAIN Time Seen by Provider: 01/20/20 12:39 Primary Care Provider: MORRO ORTIZ JR, MD [Primary Care Provider] - Follow up as needed TRAVEL OUTSIDE OF THE [place] IN LAST 30 DAYS: No - HPI Notes: Chief complaint: Shortness of breath and xiphoid discomfort HPI: 54-year-old female with history of chronic oxygen dependent COPD, morbid obesity, congestive heart failure, paroxysmal atrial fibrillation on anti coagulation with ongoing half pack per day cigarette smoking comes in for evaluation of intermittent shortness of breath and xiphoid discomfort. Both complaints have been present intermittently for over 6 months. Her discomfort and dyspnea are aggravated with movement. Her xiphoid area is very sore to touch or when she rolls over in bed. There is no radiation of pain. Pain is relieved when she takes Tylenol. Patient is followed primarily by Dr. Morro Ortiz in [facility]. - Related Data Allergies/Adverse Reactions: levothyroxine sodium [From Synthroid] Allergy (Verified 01/20/20 12:32) methotrexate [Methotrexate] Allergy (Verified 01/20/20 12:32) yellow dye [Yellow Dye] Allergy (Verified 01/20/20 12:32) azithromycin [Azithromycin] Adverse Reaction (Verified 01/20/20 12:32) temazepam [From Restoril] Adverse Reaction (Verified 01/20/20 12:32) Home Medications: eliquis, proair inhaler,..... Past Medical History - General Information source: Patient, Emergency Med Personnel, [facility] Records - Social History Smoking Status: Current Every Day Smoker Chew tobacco use (# tins/day): No Frequency of alcohol use: None Drug Abuse: None Family History: Arthritis, CAD, CVA, DM, Hyperlipidemia, Hypertension, Malignancy, Thyroid Disfunction Patient has homicidal ideation: No - Past Medical History Cardiac Medical History: Reports: Hx Atrial Fibrillation, Hx Coronary Artery Disease, Hx DVT, Hx Hypertension Denies: Hx Heart Attack Pulmonary Medical History: Reports: Hx Asthma, Hx COPD Denies: Hx Bronchitis, Hx Pneumonia, Hx Respiratory Failure, Hx Tuberculosis Neurological Medical History: Reports: Hx Migraine. Denies: Hx Cerebrovascular Accident, Hx Seizures Endocrine Medical History: Reports: Hx Diabetes Mellitus Type 2, Hx Hypothyroidism. Denies: Hx Diabetes Mellitus Type 1, Hx Hyperthyroidism Renal/ Medical History: Denies: Hx Peritoneal Dialysis GI Medical History: Reports: Hx Gastroesophageal Reflux Disease. Denies: Hx Cirrhosis, Hx Hepatitis Musculoskeletal Medical History: Denies Hx Arthritis, Denies Hx Gout, Reports Hx Musculoskeletal Deformity - scoliosis, Reports Hx Musculoskeletal Trauma Skin Medical History: Reports Hx Cellulitis, Denies Hx Eczema, Denies Hx Psoriasis Psychiatric Medical History: Reports: Hx Anxiety, Hx Bipolar Disorder, Hx Depression, Hx Obsessive Compulsive Disorder Traumatic Medical History: Reports: Hx Fractures Infectious Medical History: Denies: Hx Hepatitis Past Surgical History: Reports: Hx Abdominal Surgery, Hx Section - x 2, Hx Cholecystectomy, Hx Oral Surgery, Hx Tubal Ligation. Denies: Hx Pacemaker - Immunizations Immunizations up to date: No Hx Diphtheria, Pertussis, Tetanus Vaccination: No Review of Systems - Review of Systems Notes: Constitutional: Negative for fever. HENT: Negative for sore throat. Eyes: Negative for visual changes. Cardiovascular: As per HPI. Respiratory: Negative for shortness of breath. Gastrointestinal: Negative for abdominal pain, vomiting or diarrhea. Genitourinary: Negative for dysuria. Musculoskeletal: As per HPI. Skin: Negative for rash. Neurological: Negative for headaches, weakness or numbness. 10 point ROS negative except as marked above and in HPI. Physical Exam - Vital signs Vitals: Pulse Ox 95 01/20/20 12:26 - Notes Notes: GENERAL: Somewhat chronically ill obese female appearing approximately stated age in no acute distress. Patient is on her baseline 5 L of nasal O2 and has an O2 saturation 95% with this. SKIN: Good turgor no rashes. HEAD: Normocephalic atraumatic. EYES: PERRLA. EOMI. Conjunctivae and sclerae clear. EARS: CANALS AND TMS CLEAR. NOSE: CLEAR. MOUTH: Moist mucosa. Edentulous. No stridor or edema. No drooling. NECK: Supple. No masses or thyromegaly. No adenopathy. Carotids 2+ without bruits. No JVD. BACK: Symmetrical without tenderness. CHEST: Respirations unlabored. Breath sounds clear and symmetrical. HEART: Exquisite tenderness over the xiphoid area which EXACTLY reproduces her discomfort. Regular rhythm. No murmur gallop or rub. ABDOMEN: Soft nontender without masses, organomegaly or rebound. Bowel sounds normally active. No bruits. GENITALIA: Deferred. EXTREMITIES: No edema. No calf tenderness. Cap refill less than 1.5 seconds. Dorsalis pedis and posterior tibial pulses 3+ and symmetrical. NEUROLOGICAL: GCS 15. Alert and oriented x3. Fluent speech. Cranial nerves II through XII intact. Sensorimotor and cerebellar normal. Normal tone. PSYCHIATRIC: Appropriate affect. Course - Re-evaluation Re-evalutation: 01/20/20 17:40 This lady is still smoking and has chronic CO2 retention. She has a PO2 of 58 on room air. We put her back on her oxygen she is saturating 98%. She has a PCO 2 of 81 with a CO2 in the 50s and her pH is normal so she is fully compensated. Chest x-ray shows some mild bibasilar atelectasis. Her EKG did not show any acute changes. She has had 2 troponins 3 hours apart which are both normal. Her pain is clearly reproducible with palpation over the xiphoid area. I think this is musculoskeletal pain which can be worked up further by her primary care physician. We also note this is been a very chronic complaint for this patient. Again I have strongly encouraged her to stop smoking and advised her to continue with Tylenol and follow-up with primary care physician. - Vital Signs Vital signs: Temp Pulse Resp BP Pulse Ox 98.0 F 10 L 138/73 H 92 01/20/20 12:49 01/20/20 17:01 01/20/20 17:00 01/20/20 17:01 - Laboratory Result Diagrams: 01/20/20 12:43 01/20/20 12:43 Laboratory results interpreted by me: 01/20/20 01/20/20 12:43 13:47 Carbonic Acid 2.64 H ABG pCO2 87.6 H* ABG pO2 54.0 L ABG HCO3 47.0 H ABG Total CO2 49.6 H ABG O2 Saturation 84.2 L Sodium 135.3 L Potassium 5.1 H Chloride 82 L Carbon Dioxide 50 H* Anion Gap 3 L BUN 21 H Glucose 113 H Creatine Kinase 25 L - EKG Interpretation by Me Additional EKG results interpreted by me: 01/20/20 13:07 Twelve-lead EKG from 1232 hrs. is reviewed contemporaneously by me demonstrating a normal sinus rhythm with a rate of 82. QRS axis is +19 degrees. Intervals ar e normal. There are no acute ST/T wave changes present. Discharge - Discharge Clinical Impression: Chest wall pain, COPD, Cigarette smoking Condition: Stable Disposition: HOME, SELF-CARE Additional Instructions: Take Tylenol as needed for your discomfort. Stop smoking. Continue with your home oxygen and regular medications. See Dr. Ortiz in [place] for follow-up within the next 2 to 3 days. Return here as needed for new or worsening symptoms: Pain that is worsening or unimproved Uncontrolled vomiting High fever or shaking chills Overall worsening Forms: Smoking Cessation Education Referrals: MORRO ORTIZ JR, MD [Primary Care Provider] - Follow up as needed
[2020-01-20 13:27] LABS: ALBUMIN 3.7 g/dL (3.5-5.0); ALKALINE PHOSPHATASE 85 U/L (38-126); ASPARTATE AMINO TRANSFERASE 18 U/L (14-36); BILIRUBIN,TOTAL 0.4 mg/dL (0.2-1.3); BLOOD UREA NITROGEN 21 mg/dL (7-20); CALCIUM 9.3 mg/dL (8.4-10.2); CHLORIDE 82 mmol/L (98-107); CREATINE KINASE 25 U/L (30-135); GLUCOSE 113 mg/dL (75-110); POTASSIUM 5.1 mmol/L (3.6-5.0); TOTAL PROTEIN 6.7 g/dL (6.3-8.2)
[2020-01-20 13:36] LABS: ANION GAP 3 (5-19)
--- NOTE | 2020-01-20 13:37 | RADIOLOGY REPORT (SQ) ---
EXAM DESCRIPTION: CHEST SINGLE VIEW IMAGES COMPLETED DATE/TIME: 01/20/2020 1:26 pm REASON FOR STUDY: dyspnea COMPARISON: 11/21/2019 EXAM PARAMETERS: NUMBER OF VIEWS: One view. TECHNIQUE: Single frontal radiographic view of the chest acquired. RADIATION DOSE: NA LIMITATIONS: None. FINDINGS: LUNGS AND PLEURA: There is linear atelectasis in both lung bases. No consolidation or eff usions. No pneumothorax. MEDIASTINUM AND HILAR STRUCTURES: No masses. Contour normal. HEART AND VASCULAR STRUCTURES: Heart normal in size. Normal vasculature. BONES: No acute findings. HARDWARE: None in the chest. OTHER: No other significant finding. IMPRESSION: Basilar atelectasis. No other significant findings. TECHNICAL DOCUMENTATION: JOB ID: [id number] 2010 [employer]- All Rights Reserved Reading location - IP/workstation name: [email or web address]
[2020-01-20 13:38] LABS: CREATINE KINASE MB 1.34 ng/mL (<4.55)
[2020-01-20 13:39] LABS: CARBON DIOXIDE 50 mmol/L (22-30)
[2020-01-20 13:42] LABS: TROPONIN I < 0.012 ng/mL
[2020-01-20 14:06] LABS: ARTERIAL BLOOD BASE EXCESS 17.1 mmol/L; ARTERIAL BLOOD FIO2 5L; ARTERIAL BLOOD H2CO3 2.64 mmol/L (1.05-1.35); ARTERIAL BLOOD O2 SATURATION 84.2 % (94-98); ARTERIAL BLOOD PH 7.35 (7.35-7.45); ARTERIAL BLOOD TOTAL CO2 49.6 mmol/L (21-25)
[2020-01-20 14:08] LABS: ARTERIAL BLOOD PCO2 87.6 mmHg (35-45)
[2020-01-20 19:01] VITALS: BP 144/74
--- NOTE | 2020-01-22 10:37 | EKG REPORT ---
SEVERITY:- NORMAL ECG - SINUS RHYTHM : Confirmed by: John Soler 22-Jan-2020 10:36:08
== END 2020-01-20 18:45 | disposition home or self-care (01) ==
LOC: ER 12:25
DX: R07.89 Other chest pain (principal); R06.02 Shortness of breath; R10.13 Epigastric pain; F17.210 Nicotine dependence, cigarettes, uncomplicated; I48.91 Unspecified atrial fibrillation; I25.10 Atherosclerotic heart disease of native coronary artery without angina pectoris; I10 Essential (primary) hypertension; E11.9 Type 2 diabetes mellitus without complications; E03.9 Hypothyroidism, unspecified; Z88.3 Allergy status to other anti-infective agents; Z86.718 Personal history of other venous thrombosis and embolism; Z90.49 Acquired absence of other specified parts of digestive tract; Z79.02 Long term (current) use of antithrombotics/antiplatelets
CPT/HCPCS: 36415; 71045; 80053; 82550; 82553; 82803; 84484; 85025; 85379; 93005; 93010; 99285

== ENCOUNTER 2020-02-13 15:06 | Emergency (ER) | payer MEDICAID ==
--- NOTE | 2020-02-13 15:55 | ER Document Report ---
ED Medical Screen (RME) - General Chief Complaint: Ankle Pain Stated Complaint: ANKLE PAIN Time Seen by Provider: 02/13/20 15:49 Primary Care Provider: DARIAN ORTIZ JR, MD [Primary Care Provider] - Follow up as needed Mode of Arrival: Wheelchair Information source: Patient Notes: 54-year-old female presented to ED for complaint of pain swelling redness to both feet and ankles. She states she fell 2 weeks ago and again today. She states she does have a history of COPD CHF high blood pressure cholesterol. She does smoke half pack a day does not drink or do drugs. She states she does not know why she is following so much. She is on oxygen portable from home. She is alert oriented respirations regular and unlabored speaking in full sentences. I have greeted and performed a rapid initial assessment of this patient. A comprehensive ED assessment and evaluation of the patient, analysis of test results and completion of medical decision making process will be conducted by an additional ED providers. TRAVEL OUTSIDE OF THE [place] IN LAST 30 DAYS: No - Related Data Allergies/Adverse Reactions: levothyroxine sodium [From Synthroid] Allergy (Verified 01/20/20 12:32) methotrexate [Methotrexate] Allergy (Verified 01/20/20 12:32) yellow dye [Yellow Dye] Allergy (Verified 01/20/20 12:32) azithromycin [Azithromycin] Adverse Reaction (Verified 01/20/20 12:32) temazepam [From Restoril] Adverse Reaction (Verified 01/20/20 12:32) Past Medical History - Past Medical History Cardiac Medical History: Reports: Hx Atrial Fibrillation, Hx Coronary Artery Disease, Hx DVT, Hx Hypertension Denies: Hx Heart Attack Pulmonary Medical History: Reports: Hx Asthma, Hx COPD Denies: Hx Bronchitis, Hx Pneumonia, Hx Respiratory Failure, Hx Tuberculosis Neurological Medical History: Reports: Hx Migraine. Denies: Hx Cerebrovascular Accident, Hx Seizures Endocrine Medical History: Reports: Hx Diabetes Mellitus Type 2, Hx Hypothyroidism. Denies: Hx Diabetes Mellitus Type 1, Hx Hyperthyroidism Renal/ Medical History: Denies: Hx Peritoneal Dialysis GI Medical History: Reports: Hx Gastroesophageal Reflux Disease. Denies: Hx Cirrhosis, Hx Hepatitis Musculoskeltal Medical History: Denies Hx Arthritis, Denies Hx Gout, Reports Hx Musculoskeletal Deformity - scoliosis, Reports Hx Musculoskeletal Trauma Skin Medical History: Reports Hx Cellulitis, Denies Hx Eczema, Denies Hx Psoriasis Psychiatric Medical History: Reports: Hx Anxiety, Hx Bipolar Disorder, Hx Depression, Hx Obsessive Compulsive Disorder Traumatic Medical History: Reports: Hx Fractures Infectious Medical History: Denies: Hx Hepatitis Past Surgical History: Reports: Hx Abdominal Surgery, Hx Section - x 2, Hx Cholecystectomy, Hx Oral Surgery, Hx Tubal Ligation. Denies: Hx Pacemaker - Immunizations Immunizations up to date: No Hx Diphtheria, Pertussis, Tetanus Vaccination: No Physical Exam - Vital signs Vitals: Temp Pulse Resp BP Pulse Ox 98.4 F 85 18 147/82 H 96 02/13/20 15:31 02/13/20 15:31 02/13/20 15:31 02/13/20 15:31 02/13/20 15:31 Course - Vital Signs Vital signs: Temp Pulse Resp BP Pulse Ox 98.4 F 85 18 147/82 H 96 02/13/20 15:31 02/13/20 15:31 02/13/20 15:31 02/13/20 15:31 02/13/20 15:31 Doctor's Discharge - Discharge Referrals: DARIAN ORTIZ JR, MD [Primary Care Provider] - Follow up as needed
--- NOTE | 2020-02-13 16:33 | RADIOLOGY REPORT (SQ) ---
EXAM DESCRIPTION: CHEST 2 VIEWS IMAGES COMPLETED DATE/TIME: 02/13/2020 4:21 pm REASON FOR STUDY: Pain injury swelling of feet and ankles COMPARISON: None. EXAM PARAMETERS: NUMBER OF VIEWS: Two views. TECHNIQUE: PA and lateral views of the chest were obtained. RADIATION DOSE: NA LIMITATIONS: None. FINDINGS: LUNGS AND PLEURA: Lucy B-lines in the inferior aspect of the right and left [place] thorace s. The costophrenic sulci are blunted. There is no consolidation or pneumothorax. MEDIASTINUM AND HILAR STRUCTURES: No mediastinal or hilar contour abnormality. HEART AND VASCULAR STRUCTURES: The cardiac silhouette is borderline enlarged. BONES: No acute findings. HARDWARE: None in the chest. OTHER: No other finding. IMPRESSION: Lucy B-lines in the inferior aspect of the right and left [place] thoraces - correlate wi th clinical findings to exclude interstitial edema. TECHNICAL DOCUMENTATION: JOB ID: [id number] 2010 [employer]- All Rights Reserved Reading location - IP/workstation name: [email or web address]
--- NOTE | 2020-02-13 16:35 | RADIOLOGY REPORT (SQ) ---
EXAM DESCRIPTION: ANKLE LEFT COMPLETE IMAGES COMPLETED DATE/TIME: 02/13/2020 4:21 pm REASON FOR STUDY: Pain injury swelling of feet and ankles COMPARISON: None. NUMBER OF VIEWS: Three views. TECHNIQUE: AP, lateral, and oblique radiographic images acquired of the left ankle. LIMITATIONS: None. FINDINGS: MINERALIZATION: Osteopenia. BONES: No acute fracture or dislocation. The ankle mortise and talar dome are intact. JOINTS: No effusions. SOFT TISSUES: No soft tissue swelling. OTHER: Enthesophytes at the calcaneal insertion of the plantar fascia. IMPRESSION: No acute osseous abnormality of the left ankle. TECHNICAL DOCUMENTATION: JOB ID: [id number] 2010 [employer]- All Rights Reserved Reading location - IP/workstation name: [email or web address]
--- NOTE | 2020-02-13 16:36 | RADIOLOGY REPORT (SQ) ---
EXAM DESCRIPTION: FOOT LEFT COMPLETE IMAGES COMPLETED DATE/TIME: 02/13/2020 4:21 pm REASON FOR STUDY: Pain injury swelling of feet and ankles COMPARISON: None. NUMBER OF VIEWS: Three views. TECHNIQUE: AP, lateral and oblique radiographic images acquired of the left foot. LIMITATIONS: None. FINDINGS: MINERALIZATION: Osteopenia. BONES: No acute fracture or dislocation. JOINTS: The normal tarsometatarsal alignment is preserved. SOFT TISSUES: No soft tissue swelling. OTHER: Enthesophytes at the calcaneal insertion of the plantar fascia. IMPRESSION: No acute osseous abnormality of the left foot. TECHNICAL DOCUMENTATION: JOB ID: [id number] 2010 [employer]- All Rights Reserved Reading location - IP/workstation name: [email or web address]
--- NOTE | 2020-02-13 16:38 | RADIOLOGY REPORT (SQ) ---
EXAM DESCRIPTION: FOOT RIGHT COMPLETE IMAGES COMPLETED DATE/TIME: 02/13/2020 4:21 pm REASON FOR STUDY: Pain injury swelling of feet and ankles COMPARISON: None. NUMBER OF VIEWS: Three views. TECHNIQUE: AP, lateral and oblique radiographic images acquired of the right foot. LIMITATIONS: None. FINDINGS: MINERALIZATION: Osteopenia. BONES: Intra-articular fracture of the distal aspect of the 5th proximal phalanx. There is no other fracture. JOINTS: The normal tarsometatarsal alignment is preserved. SOFT TISSUES: No soft tissue swelling or radiopaque foreign body. OTHER: Enthesophytes at the calcaneal insertion of the plantar fascia. IMPRESSION: Intra-articular fracture of the distal aspect of the 5th proximal phalanx. TECHNICAL DOCUMENTATION: JOB ID: [id number] 2010 [employer]- All Rights Reserved Reading location - IP/workstation name: [email or web address]
--- NOTE | 2020-02-13 16:40 | RADIOLOGY REPORT (SQ) ---
EXAM DESCRIPTION: ANKLE RIGHT COMPLETE IMAGES COMPLETED DATE/TIME: 02/13/2020 4:21 pm REASON FOR STUDY: Pain injury swelling of feet and ankles COMPARISON: None. NUMBER OF VIEWS: Three views. TECHNIQUE: AP, lateral, and oblique radiographic images acquired of the right ankle. LIMITATIONS: None. FINDINGS: MINERALIZATION: Osteopenia. BONES: No acute fracture or dislocation. The ankle mortise and talar dome are intact. JOINTS: No effusions. SOFT TISSUES: No soft tissue swelling. OTHER: Enthesophytes at the calcaneal insertion of the plantar fascia. IMPRESSION: No acute osseous abnormality of the right ankle. TECHNICAL DOCUMENTATION: JOB ID: [id number] 2010 [employer]- All Rights Reserved Reading location - IP/workstation name: [email or web address]
[2020-02-13 17:04] LABS: ABSOLUTE EOSINOPHILS # (AUTO) 0.1 10^3/uL (0.0-0.6); ABSOLUTE LYMPHOCYTES (AUTO) 0.7 10^3/uL (0.5-4.7); ABSOLUTE MONOCYTES (AUTO) 0.5 10^3/uL (0.1-1.4); ABSOLUTE NEUT (AUTO) 5.9 10^3/uL (1.7-8.2); BASOPHILS % (AUTO) 0.4 % (0-2); EOSINOPHILS % (AUTO) 0.9 % (0-6); HEMATOCRIT 38.1 % (36.0-47.0); HEMOGLOBIN 12.2 g/dL (12.0-15.5); LYMPHOCYTES % (AUTO) 10.2 % (13-45); MEAN CORPUSCULAR HEMOGLOBIN 30.1 pg (27.0-33.4); MEAN CORPUSCULAR VOLUME 94 fl (80-97); MONOCYTES % (AUTO) 7.3 % (3-13); PLATELET COUNT 229 10^3/uL (150-450); RED BLOOD COUNT 4.05 10^6/uL (3.72-5.28); RED CELL DISTRIBUTION WIDTH 14.2 % (11.5-14.0); SEGMENTED NEUTROPHILS % (AUTO) 81.2 % (42-78); TOTAL CELLS COUNTED % (AUTO) 100 %; WHITE BLOOD COUNT 7.3 10^3/uL (4.0-10.5)
[2020-02-13 17:27] LABS: ALBUMIN 3.9 g/dL (3.5-5.0); ALKALINE PHOSPHATASE 90 U/L (38-126); ASPARTATE AMINO TRANSFERASE 22 U/L (14-36); BILIRUBIN,TOTAL 0.6 mg/dL (0.2-1.3); BLOOD UREA NITROGEN 20 mg/dL (7-20); CALCIUM 9.4 mg/dL (8.4-10.2); CHLORIDE 84 mmol/L (98-107); GLUCOSE 104 mg/dL (75-110); POTASSIUM 5.1 mmol/L (3.6-5.0); TOTAL PROTEIN 7.1 g/dL (6.3-8.2)
[2020-02-13 17:37] LABS: ANION GAP 1 (5-19)
[2020-02-13 17:47] LABS: CARBON DIOXIDE 52 mmol/L (22-30)
--- NOTE | 2020-02-13 17:50 | ER Document Report ---
ED General - General Chief Complaint: Leg Pain Stated Complaint: ANKLE PAIN Time Seen by Provider: 02/13/20 15:49 Primary Care Provider: DARIAN ORTIZ JR, MD [Primary Care Provider] - Follow up as needed Mode of Arrival: Wheelchair Notes: 54-year-old lady presents with bilateral foot pain right greater than left after multiple falls. She is fallen about every 3 days for the past week and a half. She has a walker lives in a one-story home but is alone during the day with her boyfriend at work. History of multiple chronic medical problems and debility. No blood thinners. Probable diabetic neuropathy. Her right foot hurts more in the lateral side her left foot is been discolored for over a week but is not as painful. No fevers. Chronic shortness of breath on chronic oxygen. TRAVEL OUTSIDE OF THE [place] IN LAST 30 DAYS: No - Related Data Allergies/Adverse Reactions: levothyroxine sodium [From Synthroid] Allergy (Verified 01/20/20 12:32) methotrexate [Methotrexate] Allergy (Verified 01/20/20 12:32) yellow dye [Yellow Dye] Allergy (Verified 01/20/20 12:32) azithromycin [Azithromycin] Adverse Reaction (Verified 01/20/20 12:32) temazepam [From Restoril] Adverse Reaction (Verified 01/20/20 12:32) Past Medical History - General Information source: Patient - Social History Smoking Status: Current Every Day Smoker Smoking Education Provided: Yes - The patient ED visit today was directly related to their abuse of tobacco. Family History: Arthritis, CAD, CVA, DM, Hyperlipidemia, Hypertension, Malignancy, Thyroid Disfunction Patient has homicidal ideation: No - Past Medical History Cardiac Medical History: Reports: Hx Atrial Fibrillation, Hx Coronary Artery Disease, Hx DVT, Hx Hypertension Denies: Hx Heart Attack Pulmonary Medical History: Reports: Hx Asthma, Hx COPD Denies: Hx Bronchitis, Hx Pneumonia, Hx Respiratory Failure, Hx Tuberculosis Neurological Medical History: Reports: Hx Migraine. Denies: Hx Cerebrovascular Accident, Hx Seizures Endocrine Medical History: Reports: Hx Diabetes Mellitus Type 2, Hx Hypothyroidism. Denies: Hx Diabetes Mellitus Type 1, Hx Hyperthyroidism Renal/ Medical History: Denies: Hx Peritoneal Dialysis GI Medical History: Reports: Hx Gastroesophageal Reflux Disease. Denies: Hx Cirrhosis, Hx Hepatitis Musculoskeletal Medical History: Denies Hx Arthritis, Denies Hx Gout, Reports Hx Musculoskeletal Deformity - scoliosis, Reports Hx Musculoskeletal Trauma Skin Medical History: Reports Hx Cellulitis, Denies Hx Eczema, Denies Hx Psoriasis Psychiatric Medical History: Reports: Hx Anxiety, Hx Bipolar Disorder, Hx Depression, Hx Obsessive Compulsive Disorder Traumatic Medical History: Reports: Hx Fractures Infectious Medical History: Denies: Hx Hepatitis Past Surgical History: Reports: Hx Abdominal Surgery, Hx Section - x 2, Hx Cholecystectomy, Hx Oral Surgery, Hx Tubal Ligation. Denies: Hx Pacemaker - Immunizations Immunizations up to date: No Hx Diphtheria, Pertussis, Tetanus Vaccination: No Review of Systems - Review of Systems Notes: REVIEW OF SYSTEMS GEN: Denies fever, chills, weight loss ENT: Denies sore throat, nasal discharge, ear pain EYES: Denies blurry vision, eye pain, discharge CV: Denies chest pain, palpitations, edema RESP: Denies cough, shortness of breath, wheezing GI: Denies abdominal pain, nausea, vomiting, diarrhea MSK: Foot pain and edema SKIN: Denies rash, skin lesions LYMPH: Denies swollen glands/lymph nodes NEURO: Denies headache, focal weakness or numbness, dizziness PSYCH: Denies depression, suicidal or homicidal ideation PHYSICAL EXAMINATION General: No acute distress, well-nourished Head: Atraumatic, normocephalic ENT: Mouth normal, oropharynx moist, no exudates or tonsillar enlargement Eyes: Conjunctiva normal, pupils equal, lids normal Neck: No JVD, supple, no guarding CVS: Normal rate, regular rhythm, no murmurs Resp: No resp distress, equal and normal breath sounds bilaterally GI: Nondistended, soft, no tenderness to palpation, no rebound or guarding Ext: Under in the lateral side of the right forefoot, left foot is nontender but with some chronic ecchymosis and discoloration Skin: No rash, warm Lymphatic: No lymphadeopathy noted Neuro: Awake, alert. Face symmetric. GCS 15. Physical Exam - Vital signs Vitals: Temp Pulse Resp BP Pulse Ox 98.4 F 85 18 147/82 H 96 02/13/20 15:31 02/13/20 15:31 02/13/20 15:31 02/13/20 15:31 02/13/20 15:31 Course - Re-evaluation Re-evalutation: 02/13/20 17:48 Multiple falls likely from COPD and debility Also polypharmacy per the patient is asking me to give her a medication list of her own medicines but I am not sure that our list is up-to-date and she does not know either. I told her is very important that she see her primary care and Roger within the next couple days to sort out her meds as these may be a cause of the falls. I do not see any asymmetric weakness or altered mental status which would explain them. She does have a small fracture in her right fifth proximal phalanx, and although it is not read on the x-ray suspect there may be a distal metatarsal fracture as well. Hard soled shoe weightbearing as tolerated. She will follow-up with orthopedics. Labs checked are essentially normal other than chronic CO2 retention. I have discussed with the patient there likely diagnosis, aftercare plan, follow-up plans and my usual and customary return precautions. They verbalized understanding of this. - Vital Signs Vital signs: Temp Pulse Resp BP Pulse Ox 98.4 F 85 18 147/82 H 96 02/13/20 15:51 02/13/20 15:31 02/13/20 15:31 02/13/20 15:31 02/13/20 15:31 - Laboratory Result Diagrams: 02/13/20 16:37 02/13/20 16:37 Laboratory results interpreted by me: 02/13/20 02/13/20 16:37 16:37 RDW 14.2 H Lymph % (Auto) 10.2 L Seg Neutrophils % 81.2 H NT-Pro-B Natriuret Pep 1120 H - Diagnostic Test Radiology reviewed: Image reviewed, Reports reviewed Procedures - Immobilization Right Distal Foot Pre-Proc Neuro Vasc Exam: Normal Immobilizer type: Other - Hard soled shoe applied for fracture pain management of phalangeal fracture Performed by: Provider assisted Post-Proc Neuro Vasc Exam: Normal Alignment checked and good: Yes Discharge - Discharge Clinical Impression: Fracture of phalanx of right foot, closed Qualifiers: Encounter type: initial encounter Toe: lesser toe Phalanx: distal Fracture alignment: nondisplaced Qualified Code(s): S92.534A - Nondisplaced fracture of distal phalanx of right lesser toe(s), initial encounter for closed fracture Condition: Good Disposition: HOME, SELF-CARE Instructions: Foot Fracture ([facility]) Referrals: DARIAN ORTIZ JR, MD [Primary Care Provider] - Follow up as needed IDALIA PONCE JR, DO [ACTIVE PROVISIONAL STAFF] - Follow up in 1 week
[2020-02-13 18:04] VITALS: BP 158/91
== END 2020-02-13 18:08 | disposition home or self-care (01) ==
LOC: ER 15:06
DX: S92.534A Nondisplaced fracture of distal phalanx of right lesser toe(s), initial encounter for closed fracture (principal); S92.511A Displaced fracture of proximal phalanx of right lesser toe(s), initial encounter for closed fracture; M79.672 Pain in left foot; M79.671 Pain in right foot; W19.XXXA Unspecified fall, initial encounter; Y92.009 Unspecified place in unspecified non-institutional (private) residence as the place of occurrence of the external cause; I25.10 Atherosclerotic heart disease of native coronary artery without angina pectoris; I10 Essential (primary) hypertension; E11.9 Type 2 diabetes mellitus without complications; R58 Hemorrhage, not elsewhere classified; F17.200 Nicotine dependence, unspecified, uncomplicated; R06.02 Shortness of breath; J44.9 Chronic obstructive pulmonary disease, unspecified; Z99.81 Dependence on supplemental oxygen; Z88.8 Allergy status to other drugs, medicaments and biological substances; Z91.048 Other nonmedicinal substance allergy status
CPT/HCPCS: 36415; 71046; 80053; 83880; 85025; 99283

== ENCOUNTER 2020-02-23 04:13 | Emergency (ER) | payer MEDICAID ==
[2020-02-23] MEDS ORDERED: TRAMADOL HCL 50 MG TABLET PO ONE (07:08)
--- NOTE | 2020-02-23 07:13 | ER Document Report ---
ED General - General Chief Complaint: Foot Pain Stated Complaint: FALL Time Seen by Provider: 02/23/20 06:59 TRAVEL OUTSIDE OF THE [place] IN LAST 30 DAYS: No - HPI Notes: Chief complaint: Fall with right foot injury HPI: 54-year-old female well-known to me from prior ED encounter who is morbidly obese with a history of COPD and obstructive sleep apnea with chronic oxygen dependency and also peripheral neuropathy with prior history of multiple falls. Back again today after another mechanical fall at home which occurred several days ago. She complains of persistent pain right foot and ankle. She is able to partially bear weight on this. Says she has been taking some acetaminophen for pain relief at home which is been inadequate. She uses 4 L of nasal O2 at all times. She is followed by the clinic in [facility]. - Related Data Allergies/Adverse Reactions: levothyroxine sodium [From Synthroid] Allergy (Verified 02/23/20 04:24) methotrexate [Methotrexate] Allergy (Verified 02/23/20 04:24) yellow dye [Yellow Dye] Allergy (Verified 02/23/20 04:24) azithromycin [Azithromycin] Adverse Reaction (Verified 02/23/20 04:24) temazepam [From Restoril] Adverse Reaction (Verified 02/23/20 04:24) Past Medical History - General Information source: Patient, [facility] Records - Social History Smoking Status: Current Every Day Smoker Frequency of alcohol use: None Family History: Arthritis, CAD, CVA, DM, Hyperlipidemia, Hypertension, Malignancy, Thyroid Disfunction Patient has homicidal ideation: No - Past Medical History Cardiac Medical History: Reports: Hx Atrial Fibrillation, Hx Congestive Heart Failure, Hx Coronary Artery Disease, Hx DVT, Hx Hypertension Denies: Hx Heart Attack Pulmonary Medical History: Reports: Hx Asthma, Hx COPD Denies: Hx Bronchitis, Hx Pneumonia, Hx Respiratory Failure, Hx Tuberculosis Neurological Medical History: Reports: Hx Migraine. Denies: Hx Cerebrovascular Accident, Hx Seizures Endocrine Medical History: Reports: Hx Diabetes Mellitus Type 2, Hx Hypothyroidism. Denies: Hx Diabetes Mellitus Type 1, Hx Hyperthyroidism Renal/ Medical History: Denies: Hx Peritoneal Dialysis GI Medical History: Reports: Hx Gastroesophageal Reflux Disease. Denies: Hx Cirrhosis, Hx Hepatitis Musculoskeletal Medical History: Denies Hx Arthritis, Denies Hx Gout, Reports Hx Musculoskeletal Deformity - scoliosis, Reports Hx Musculoskeletal Trauma Skin Medical History: Reports Hx Cellulitis, Denies Hx Eczema, Denies Hx Psoriasis Psychiatric Medical History: Reports: Hx Anxiety, Hx Bipolar Disorder, Hx Depression, Hx Obsessive Compulsive Disorder Traumatic Medical History: Reports: Hx Fractures Infectious Medical History: Denies: Hx Hepatitis Past Surgical History: Reports: Hx Abdominal Surgery, Hx Section - x 2, Hx Cholecystectomy, Hx Oral Surgery, Hx Tubal Ligation. Denies: Hx Pacemaker - Immunizations Immunizations up to date: No Hx Diphtheria, Pertussis, Tetanus Vaccination: No Review of Systems - Review of Systems Notes: Constitutional: Negative for fever. HENT: Negative for sore throat. Eyes: Negative for visual changes. Cardiovascular: Negative for chest pain. Respiratory: Negative for shortness of breath. Gastrointestinal: Negative for abdominal pain, vomiting or diarrhea. Genitourinary: Negative for dysuria. Musculoskeletal: As per HPI. Skin: Negative for rash. Neurological: Negative for headaches, focal weakness or numbness. 10 point ROS negative except as marked above and in HPI. Physical Exam - Vital signs Vitals: Pulse Ox 96 02/23/20 04:21 - Notes Notes: GENERAL: Morbidly obese female appearing approximately stated age who appears mildly uncomfortable. She is on her usual 4 L of nasal O2 with an O2 saturation of 96% by pulse oximetry. SKIN: Good turgor no rashes. HEAD: Normocephalic atraumatic. EYES: PERRLA. EOMI. Conjunctivae and sclerae clear. EARS: CANALS AND TMS CLEAR. NOSE: CLEAR. MOUTH: Moist mucosa. Good dentition. No stridor or edema. No drooling. NECK: Supple. No masses or thyromegaly. No adenopathy. Carotids 2+ without bruits. No JVD. BACK: Symmetrical without tenderness. CHEST: Respirations unlabored. Scattered faint end expiratory wheezes bilaterally. HEART: Regular rhythm. No murmur gallop or rub. ABDOMEN: Obese. Soft nontender without masses, organomegaly or rebound. Bowel sounds normally active. No bruits. GENITALIA: Deferred. EXTREMITIES: Tender over plantar aspect of mid forefoot on the right. No edema. No calf tenderness. Cap refill less than 1.5 seconds. Dorsalis pedis and posterior tibial pulses 3+ and symmetrical. NEUROLOGICAL: GCS 15. Alert and oriented x3. Fluent speech. Cranial nerves II through XII intact. Sensorimotor and cerebellar normal. Normal tone. PSYCHIATRIC: Appropriate affect. Course - Re-evaluation Re-evalutation: 02/23/20 08:59 Patient will be splinted and she has a walker. I am going to give her some tramadol for as needed use for pain and instruct her to avoid weightbearing and elevate the extremity and apply ice. We will refer her to orthopedics for outpa tient follow-up. - Vital Signs Vital signs: Temp Pulse Resp BP Pulse Ox 98.1 F 96 18 118/72 91 L 02/23/20 04:26 02/23/20 05:41 02/23/20 08:00 02/23/20 06:01 02/23/20 08:00 - Diagnostic Test Radiology reviewed: Reports reviewed - Per radiologist there are multiple subacute metatarsal fractures of the right foot unchanged from earlier film. Ankle films unremarkable. Procedures - Immobilization Right Foot Immobilizer type: Short Leg Posterior Performed by: PCT Post-Proc Neuro Vasc Exam: Normal Alignment checked and good: Yes Discharge - Discharge Clinical Impression: Closed metatarsal fractures right foot COPD (chronic obstructive pulmonary disease) Qualifiers: COPD type: unspecified COPD Qualified Code(s): J44.9 - Chronic obstructive pulmonary disease, unspecified Condition: Stable Disposition: HOME, SELF-CARE Additional Instructions: Avoid bearing weight on right foot. Keep splint on. Elevate and apply ice packs. Use walker to assist ambulation. Follow-up with sales operations specialist as instructed. Take prescribed pain medication as needed for pain. Prescriptions: Tramadol HCl [Ultram 50 mg Tablet] 50 mg PO Q4HP PRN #12 tab PRN Reason: Referrals: IDALIA PONCE JR, DO [ACTIVE PROVISIONAL STAFF] - Follow up as needed
--- NOTE | 2020-02-23 07:41 | RADIOLOGY REPORT (SQ) ---
EXAM: XR Right Ankle Complete, 3 Views EXAM DATE/TIME: 02/23/2020 7:18 AM CLINICAL HISTORY: The patient is 54 years old and is Female; fall, injury TECHNIQUE: Frontal, lateral and oblique views of the right ankle. COMPARISON: Radiographs of the right ankle from 02/13/2020 FINDINGS: BONES/JOINTS: No acute fracture or dislocation. The ankle joint is well-maintained. SOFT TISSUES: No significant soft tissue swelling appreciated. There is osseous spurring along the plantar aspect of the calcaneus, at the origin of the plantar fascia. IMPRESSION: No acute findings.
--- NOTE | 2020-02-23 07:50 | RADIOLOGY REPORT (SQ) ---
EXAM: XR Right Foot Complete, 3 Views EXAM DATE/TIME: 02/23/2020 07:07 CLINICAL HISTORY: The patient is 54 years old and is Female; pain, fall TECHNIQUE: Frontal, lateral and oblique views of the right foot. COMPARISON: Radiographs of the right foot from 02/13/2020 FINDINGS: BONES/JOINTS: There is a subacute fracture at the distal aspect of the 5th proximal phalanx. This is similar to the prior study. There are also fractures of the 2nd through 5th metatarsal heads, with slight displacement at the 3rd and 4th metatarsal head. These are also seen on the prior study and are favored to be recent/subacute. No new fractures visualized. No dislocation. SOFT TISSUES: There is osseous spurring along the plantar aspect of the calcaneus, at the origin of the plantar fascia. Mild soft tissue swelling of the forefoot. IMPRESSION: Recent/subacute fractures of the 2nd through 5th metatarsal heads as well as the 5th proximal phalanx. Findings are similar to the prior exam.
[2020-02-23 13:26] VITALS: BP 156/84
== END 2020-02-23 13:28 | disposition home or self-care (01) ==
LOC: ER 04:13
DX: S92.321A Displaced fracture of second metatarsal bone, right foot, initial encounter for closed fracture (principal); S92.331A Displaced fracture of third metatarsal bone, right foot, initial encounter for closed fracture; S92.341A Displaced fracture of fourth metatarsal bone, right foot, initial encounter for closed fracture; S92.351A Displaced fracture of fifth metatarsal bone, right foot, initial encounter for closed fracture; S92.511A Displaced fracture of proximal phalanx of right lesser toe(s), initial encounter for closed fracture; W19.XXXA Unspecified fall, initial encounter; Y92.009 Unspecified place in unspecified non-institutional (private) residence as the place of occurrence of the external cause; E11.42 Type 2 diabetes mellitus with diabetic polyneuropathy; M79.671 Pain in right foot; M25.571 Pain in right ankle and joints of right foot; J44.9 Chronic obstructive pulmonary disease, unspecified; E66.01 Morbid (severe) obesity due to excess calories; F17.200 Nicotine dependence, unspecified, uncomplicated; I25.10 Atherosclerotic heart disease of native coronary artery without angina pectoris; I10 Essential (primary) hypertension; Z99.81 Dependence on supplemental oxygen; Z88.8 Allergy status to other drugs, medicaments and biological substances; Z91.048 Other nonmedicinal substance allergy status
CPT/HCPCS: 99283

== ENCOUNTER 2020-03-04 21:17 | Inpatient (IN) | payer MEDICAID ==
[2020-03-04 22:48] LABS: ABSOLUTE EOSINOPHILS # (AUTO) 0.1 10^3/uL (0.0-0.6); ABSOLUTE LYMPHOCYTES (AUTO) 0.9 10^3/uL (0.5-4.7); ABSOLUTE MONOCYTES (AUTO) 0.5 10^3/uL (0.1-1.4); ABSOLUTE NEUT (AUTO) 4.9 10^3/uL (1.7-8.2); BASOPHILS % (AUTO) 0.8 % (0-2); EOSINOPHILS % (AUTO) 1.3 % (0-6); HEMATOCRIT 37.1 % (36.0-47.0); HEMOGLOBIN 11.7 g/dL (12.0-15.5); LYMPHOCYTES % (AUTO) 14.5 % (13-45); MEAN CORPUSCULAR HEMOGLOBIN 29.9 pg (27.0-33.4); MEAN CORPUSCULAR HGB CONC 31.5 g/dL (32.0-36.0); MEAN CORPUSCULAR VOLUME 95 fl (80-97); MONOCYTES % (AUTO) 7.5 % (3-13); PLATELET COUNT 255 10^3/uL (150-450); RED CELL DISTRIBUTION WIDTH 15.8 % (11.5-14.0); SEGMENTED NEUTROPHILS % (AUTO) 75.9 % (42-78); TOTAL CELLS COUNTED % (AUTO) 100 %; WHITE BLOOD COUNT 6.5 10^3/uL (4.0-10.5)
[2020-03-04 23:00] LABS: ALBUMIN 3.8 g/dL (3.5-5.0); ALKALINE PHOSPHATASE 97 U/L (38-126); ASPARTATE AMINO TRANSFERASE 25 U/L (14-36); BILIRUBIN,DIRECT 0.1 mg/dL (0.0-0.4); BILIRUBIN,TOTAL 0.7 mg/dL (0.2-1.3); BLOOD UREA NITROGEN 25 mg/dL (7-20); CALCIUM 8.9 mg/dL (8.4-10.2); GLUCOSE 108 mg/dL (75-110); TOTAL PROTEIN 6.7 g/dL (6.3-8.2)
[2020-03-04 23:08] LABS: ALCOHOL < 10 mg/dL (NONE DETECTED)
--- NOTE | 2020-03-04 23:10 | RADIOLOGY REPORT (SQ) ---
EXAM DESCRIPTION: X-ray, AP portable view of the chest CLINICAL HISTORY: 54 years Female, dyspnea COMPARISON: Two views of the chest 02/13/2020 FINDINGS: Lungs: Progressive volume loss is noted in the lower lobes bilaterally. This is nonspecific and may represent pneumonia or atelectasis. Mediastinum: Heart size is mildly enlarged. Mediastinum is stable. Bones: Osseous structures are stable IMPRESSION: Progressive volume loss in the lower lobes bilaterally suggestive of atelectasis or pneumonia.
[2020-03-04 23:11] LABS: NT PRO BNP 2110 pg/mL (<125)
[2020-03-04 23:12] LABS: TROPONIN I < 0.012 ng/mL
[2020-03-04 23:16] LABS: CHLORIDE 86 mmol/L (98-107)
[2020-03-04 23:21] LABS: ARTERIAL BLOOD BASE EXCESS 20.7 mmol/L; ARTERIAL BLOOD H2CO3 3.52 mmol/L (1.05-1.35); ARTERIAL BLOOD HCO3 52.9 mmol/L (20-24); ARTERIAL BLOOD O2 SATURATION 99.6 % (94-98); ARTERIAL BLOOD PCO2 117.1 mmHg (35-45); ARTERIAL BLOOD PH 7.27 (7.35-7.45); ARTERIAL BLOOD TOTAL CO2 56.5 mmol/L (21-25)
[2020-03-04 23:26] LABS: ANION GAP 1 (5-19)
[2020-03-04 23:27] LABS: ARTERIAL BLOOD FIO2 100%
[2020-03-04 23:29] LABS: CARBON DIOXIDE 47 mmol/L (22-30)
--- NOTE | 2020-03-05 00:22 | EKG REPORT ---
SEVERITY:- ABNORMAL ECG - SINUS RHYTHM MULTIPLE ATRIAL PREMATURE COMPLEXES : Confirmed by: John Soler 05-Mar-2020 00:21:22
[2020-03-05] MEDS ORDERED: METHYLPREDNISOLONE INJ 125 MG/2 ML SDV IV ONE (00:34)
[2020-03-05 03:02] LABS: ARTERIAL BLOOD BASE EXCESS 14.6 mmol/L; ARTERIAL BLOOD H2CO3 2.65 mmol/L (1.05-1.35); ARTERIAL BLOOD HCO3 44.6 mmol/L (20-24); ARTERIAL BLOOD O2 SATURATION 90.8 % (94-98); ARTERIAL BLOOD PH 7.32 (7.35-7.45); ARTERIAL BLOOD PO2 67.7 mmHg (80-100); ARTERIAL BLOOD TOTAL CO2 47.3 mmol/L (21-25)
[2020-03-05 03:06] LABS: ARTERIAL BLOOD FIO2 40%
[2020-03-05 03:07] LABS: ARTERIAL BLOOD PCO2 88.1 mmHg (35-45)
--- NOTE | 2020-03-05 03:39 | ER Document Report ---
Entered by TREY SHEPHERD SCRIBE 03/04/20 2224 Acting as scribe for:JIHAN MARTINEZ IV, MD ED General - General Chief Complaint: Ankle Injury Stated Complaint: ANKLE PAIN Mode of Arrival: Medic Information source: Patient, Emergency Med Personnel Notes: This 54 year old female patient with a history of CHF and COPD brought in by EMS presents to the ED today with complaints of bilateral ankle pain, right worse than left. Patient was seen here on 02/13/2020 with complaints of bilateral an kle pain status post multiple falls. Ankle films were negative, but the patient had a fracture to her right 5th proximal phalanx, so her foot was immobilized with a hard soled shoe. EMS reports that they were called out for the ankle pain, but upon their arrival, patient had O2 sats in the 50s. EMS placed the patient on CPAP which increased the O2 sats to 84% and administered 2 gm Mag, 125 mg Solumedrol, and started on 10 mcg Nitro gtt. TRAVEL OUTSIDE OF THE [place] IN LAST 30 DAYS: No - Related Data Allergies/Adverse Reactions: levothyroxine sodium [From Synthroid] Allergy (Verified 02/23/20 04:24) methotrexate [Methotrexate] Allergy (Verified 02/23/20 04:24) yellow dye [Yellow Dye] Allergy (Verified 02/23/20 04:24) azithromycin [Azithromycin] Adverse Reaction (Verified 02/23/20 04:24) temazepam [From Restoril] Adverse Reaction (Verified 02/23/20 04:24) Past Medical History - General Information source: Patient, [facility] Records - Social History Smoking Status: Current Every Day Smoker Cigarette use (# per day): Yes Chew tobacco use (# tins/day): No Smoking Education Provided: No Family History: Reviewed & Not Pertinent, Arthritis, CAD, CVA, DM, Hyperlipidemia, Hypertension, Malignancy, Thyroid Disfunction Patient has suicidal ideation: No Patient has homicidal ideation: No - Past Medical History Cardiac Medical History: Reports: Hx Atrial Fibrillation, Hx Congestive Heart Failure, Hx Coronary Artery Disease, Hx DVT, Hx Hypertension Pulmonary Medical History: Reports: Hx Asthma, Hx COPD Neurological Medical History: Reports: Hx Migraine Endocrine Medical History: Reports: Hx Diabetes Mellitus Type 2, Hx Hypothyroidism GI Medical History: Reports: Hx Gastroesophageal Reflux Disease Musculoskeletal Medical History: Reports Hx Musculoskeletal Deformity - scoliosis, Reports Hx Musculoskeletal Trauma Skin Medical History: Reports Hx Cellulitis Psychiatric Medical History: Reports: Hx Anxiety, Hx Bipolar Disorder, Hx Depression, Hx Obsessive Compulsive Disorder Traumatic Medical History: Reports: Hx Fractures Past Surgical History: Reports: Hx Abdominal Surgery, Hx Section - x 2, Hx Cholecystectomy, Hx Oral Surgery, Hx Tubal Ligation - Immunizations Immunizations up to date: No Hx Diphtheria, Pertussis, Tetanus Vaccination: No Review of Systems - Review of Systems Constitutional: No symptoms reported EENT: No symptoms reported Cardiovascular: See HPI, Dyspnea Respiratory: No symptoms reported Gastrointestinal: No symptoms reported Genitourinary: No symptoms reported Female Genitourinary: No symptoms reported Musculoskeletal: See HPI, Joint pain - Bilateral Skin: No symptoms reported Hematologic/Lymphatic: No symptoms reported Neurological/Psychological: No symptoms reported -: Yes All other systems reviewed and negative Physical Exam - Vital signs Vitals: Resp Pulse Ox 22 H 100 03/04/20 21:18 03/04/20 21:18 - General General appearance: Alert In distress: None - HEENT Head: Normocephalic, Atraumatic Eyes: Normal Pupils: PERRL - Respiratory Respiratory status: No respiratory distress - on BiPAP Chest status: Nontender Breath sounds: Normal Chest palpation: Normal - Cardiovascular Rhythm: Regular Heart sounds: Normal auscultation Murmur: No Friction rub: No Gallop: None auscultated - Abdominal Inspection: Normal Distension: No distension Bowel sounds: Normal Tenderness: Nontender - Abdomen soft Organomegaly: No organomegaly - Back Back: Normal, Nontender - Extremities General upper extremity: Normal inspection General lower extremity: Other - Short leg posterior splint to RLE, post-op shoe to left foot - Neurological Neuro grossly intact: Yes Orientation: AAOx4 [place] Coma Scale Eye Opening: Spontaneous Andrew Coma Scale Verbal: Oriented Andrew Coma Scale Motor: Obeys Commands [place] Coma Scale Total: 15 - Psychological Associated symptoms: Normal affect, Normal mood - Skin Skin Temperature: Warm Skin Moisture: Dry Skin Color: Normal Course - Vital Signs Vital signs: Temp Pulse Resp BP Pulse Ox 19 167/86 H 93 03/05/20 06:01 03/05/20 06:00 03/05/20 06:01 - Laboratory Result Diagrams: 03/04/20 21:20 03/04/20 21:20 Laboratory results interpreted by me: 03/04/20 03/04/20 03/04/20 21:20 21:20 21:20 Hgb 11.7 L MCHC 31.5 L RDW 15.8 H Carbonic Acid ABG pH ABG pCO2 ABG pO2 ABG HCO3 ABG Total CO2 ABG O2 Saturation Sodium 134.3 L Chloride 86 L Carbon Dioxide 47 H* Anion Gap 1 L BUN 25 H NT-Pro-B Natriuret Pep 2110 H 03/04/20 03/05/20 22:55 02:27 Hgb MCHC RDW Carbonic Acid 3.52 H 2.65 H ABG pH 7.27 L 7.32 L ABG pCO2 117.1 H* 88.1 H* ABG pO2 314.0 H 67.7 L ABG HCO3 52.9 H 44.6 H ABG Total CO2 56.5 H 47.3 H ABG O2 Saturation 99.6 H 90.8 L Sodium Chloride Carbon Dioxide Anion Gap BUN NT-Pro-B Natriuret Pep - EKG Interpretation by Me Additional EKG results interpreted by me: 03/05/20 03:48 EKG obtained on 03/04/2020 at 2114 hrs. was interpreted by this MD. Findings sinus rhythm with occasional PACs, rate 83, normal axis, P waves preceding QRS complexes, QRS complexes appear narrow, there are no obvious patterns of ST se gment elevation or depression present to the suggest acute myocardial ischemia or infarction. Impression sinus rhythm with occasional PACs and nonspecific ST segments. - Consults dr. linda parker Time consulted: 03:33 - dr. parker agreed to admit pt Reason for consultation: 03/05/20 03:50 Acute respiratory failure with hypoxia and hypercapnia Critical Care Note - Critical Care Note Total time excluding time spent on procedures (mins): 120 - acute respiratory failure with hypoxia and hypercapnia Discharge - Discharge Clinical Impression: Acute respiratory failure with hypoxia and hypercapnia Condition: Stable Disposition: ADMITTED INPATIENT Admitting Provider: Codie (Hospitalist) Unit Admitted: IMCU I personally performed the services described in the documentation, reviewed and edited the documentation which was dictated to the scribe in my presence, and it accurately records my words and actions.
[2020-03-05] MEDS ORDERED: MORPHINE SULFATE 10 MG/ML INJ IV PRN (04:02)
[2020-03-05] MEDS ORDERED: MAG HYDROX/AL HYDROX/SIMETH SUSP 30 ML UDCUP PO PRN (04:02)
[2020-03-05] MEDS ORDERED: INSULIN REG, HUMAN 100 UNIT/ML 3 ML VIAL (PYX) SUBCUT PRN (04:02)
[2020-03-05] MEDS ORDERED: LEVALBUTEROL HCL NEB 0.63 MG/3 ML AMPUL NEB PRN (04:02)
[2020-03-05] MEDS ORDERED: NICOTINE 21 MG/24 HR PATCH.TD24 TD PRN (04:02)
[2020-03-05] MEDS ORDERED: ACETAMINOPHEN 325 MG TABLET PO PRN (04:02)
[2020-03-05] MEDS ORDERED: HYDRALAZINE HCL INJ/PF 20 MG/1 ML SDV IV PRN (04:02)
[2020-03-05] MEDS ORDERED: MAGNESIUM HYDROXIDE SUSP 30 ML UDCUP PO PRN (04:02)
[2020-03-05] MEDS ORDERED: GUAIFENESIN SYRP 200 MG/10 ML UDC PO PRN (04:04)
[2020-03-05] MEDS ORDERED: DEXTROSE 50%-WATER 25 GM/50 ML DISP.SYRIN IV PRN ×2 (04:06)
[2020-03-05] MEDS ORDERED: DEXTROSE 40% GEL 15 GM TUBE PO PRN ×2 (04:06)
[2020-03-05] MEDS ORDERED: GLUCAGON,HUMAN RECOMB 1 MG INJ IM PRN (04:06)
[2020-03-05] MEDS ORDERED: PROMETHAZINE HCL INJ 25 MG/1 ML VIAL IV PRN (04:06)
[2020-03-05] MEDS ORDERED: RINGERS SOLUTION,LACTATED 1,000 ML IV PRN (04:06)
--- NOTE | 2020-03-05 06:13 | PDOC H&P ---
History of Present Illness Admission Date/PCP: 03/05/2020 03:40 No local PCP Patient complains of: Bilateral ankle pain History of Present Illness: TRISTA ESTRELLA is a 54 year old female who presented to the emergency room today via EMS with acute respiratory failure. She had summoned EMS to her home to be taken to the hospital for bilateral ankle pain. Upon their arrival at her home they discovered her to have an O2 sat in the 50s and to be in severe respiratory distress. They placed her on CPAP and administered IV Solu-Medrol, magnesium and nitroglycerin. Upon arrival emergency room patient was noted to have an O2 sat of 84% but she is acutely confused, even with current therapy having been converted to BiPAP. Her PCO2 was 117 initially and has improved to the mid 80s with her current BiPAP settings. Due to her confusion patient is unable to provide significant input to her medical record. She was subsequently admitted to the hospital for further evaluation and treatment. Past Medical History Past Medical History: Due to the patient's acute confusion her past medical history, past surgical history, social history and family history are obtained from the best available reliable source. Cardiac Medical History: Reports: Atrial Fibrillation, Congestive Heart Failure, Coronary Artery Disease, DVT, Hypertension Denies: Myocardial Infarction Pulmonary Medical History: Reports: Asthma, Chronic Obstructive Pulmonary Disease (COPD), Respiratory Failure Denies: Bronchitis, Pneumonia, Tuberculosis EENT Medical History: Denies: Cataracts, Ears - Hearing aids Neurological Medical History: Reports: Migraine Denies: Hemorrhagic CVA, Ischemic CVA, Seizures Endocrine Medical History: Reports: Diabetes Mellitus Type 2, Hypothyroidism Denies: Diabetes Mellitus Type 1, Hyperthyroidism Renal/ Medical History: Denies: Chronic Kidney Disease, Nephrolithiasis Malignancy Medical History: Reports: None GI Medical History: Reports: Gastroesophageal Reflux Disease Denies: Cirrhosis, Crohn's Disease, Hepatitis, Peptic Ulcer Disease, Ulcerative Colitis Musculoskeltal Medical History: Denies: Arthritis, Gout Skin Medical History: Denies: Eczema, Psoriasis Psychiatric Medical History: Reports: Bipolar Disorder, Depression, Tobacco Dependency Denies: Alcohol Dependency, Substance Abuse Traumatic Medical History: Reports: None Hematology: Denies: Anemia, Bleeding Tendencies Infectious Medical History: Reports: None Past Surgical History Past Surgical History: Due to the patient's acute confusion her past medical history, past surgical history, social history and family history are obtained from the best available reliable source. Past Surgical History: Reports: Section - x 2, Cholecystectomy, Tubal Ligation Social History [facility] Lives with: Alone Smoking Status: Current Every Day Smoker Electronic Cigarette use?: No Frequency of Alcohol Use: None Hx Recreational Drug Use: No Drugs: None Hx Prescription Drug Abuse: No Past Social History Note: Due to the patient's acute confusion her past medical history, past surgical history, social history and family history are obtained from the best available reliable source. - Advance Directive Resuscitation Status: Full Code Surrogate healthcare decision maker:: Katie Clayton Family History Family History: Arthritis, CAD, CVA, DM, Hyperlipidemia, Hypertension, Malignancy, Thyroid Disfunction Family History: Due to the patient's acute confusion her past medical history, past surgical history, social history and family history are obtained from the best available reliable source. Parental Family History Reviewed: Yes Children Family History Reviewed: No Sibling(s) Family History Reviewed.: Yes Medication/Allergy Home Medications: Albuterol Sulfate [Proair HFA Inhalation Aerosol 8.5 gm MDI] 2 puff IH Q4HP PRN 11/22/19 Glycopyrrolate/Formoterol Fum [Bevespi Aerosphere Inhaler] 2 puff IH BID 11/22/19 Sertraline HCl [Zoloft 50 mg Tablet] 50 mg PO DAILY 11/22/19 Apixaban [Eliquis 5 mg Tablet] 5 mg PO BID 30 Days #60 tablet 11/24/19 Aspirin [Adult Low Dose Aspirin EC] 81 mg PO DAILY 30 Days #30 tablet.dr 11/24/19 Diltiazem HCl [Diltiazem ER] 300 mg PO DAILY 30 Days #30 tab.er.24h 11/24/19 Tramadol HCl [Ultram 50 mg Tablet] 50 mg PO Q4HP PRN #12 tab 02/23/20 Allergies/Adverse Reactions: levothyroxine sodium [From Synthroid] Allergy (Verified 02/23/20 04:24) methotrexate [Methotrexate] Allergy (Verified 02/23/20 04:24) yellow dye [Yellow Dye] Allergy (Verified 02/23/20 04:24) azithromycin [Azithromycin] Adverse Reaction (Verified 02/23/20 04:24) temazepam [From Restoril] Adverse Reaction (Verified 02/23/20 04:24) Review of Systems ROS unobtainable: Due to mental status - Acute encephalopathy Physical Exam Vital Signs: Temp Pulse Resp BP Pulse Ox 24 H 100 03/04/20 23:47 03/04/20 23:47 Intake & Output 03/03/20 03/04/20 03/05/20 23:59 23:59 23:59 Weight 93.3 kg General appearance: PRESENT: no acute distress, morbidly obese - On BiPAP at the time of my exam, other Head exam: PRESENT: atraumatic, normocephalic Eye exam: PRESENT: conjunctiva pink. ABSENT: conjunctival injection, scleral icterus Ear exam: PRESENT: normal external ear exam. ABSENT: bleeding, drainage Mouth exam: PRESENT: dry mucosa, neck supple Neck exam: ABSENT: thyromegaly, tracheal deviation Respiratory exam: PRESENT: decreased breath sounds - Decreased breath sounds throughout all gutierrez, prolonged expiratory phas - Mildly prolonged expiratory phase throughout all gutierrez, symmetrical, wheezes - Mild expiratory wheezes noted in all gutierrez, other - On BiPAP at the time of my exam Cardiovascular exam: PRESENT: RRR. ABSENT: clicks, gallop, rubs Pulses: PRESENT: normal carotid pulses, normal radial pulses Vascular exam: PRESENT: normal capillary refill. ABSENT: pallor GI/Abdominal exam: PRESENT: normal bowel sounds, soft Rectal exam: PRESENT: deferred Extremities exam: PRESENT: other - Right foot in a cast shoe. ABSENT: joint swelling Musculoskeletal exam: ABSENT: deformity, dislocation Neurological exam: PRESENT: altered - Confused, CN II-XII grossly intact Psychiatric exam: PRESENT: other - Confused Skin exam: PRESENT: dry, intact, warm. ABSENT: jaundice, rash, urticaria Results Laboratory Results: 03/04/20 21:20 03/04/20 21:20 03/04/20 03/04/20 03/04/20 21:20 21:20 22:55 WBC 6.5 RBC 3.90 Hgb 11.7 L Hct 37.1 MCV 95 MCH 29.9 MCHC 31.5 L RDW 15.8 H Plt Count 255 Seg Neutrophils % 75.9 Carbonic Acid 3.52 H HCO3/H2CO3 Ratio 15:1 ABG pH 7.27 L ABG pCO2 117.1 H* ABG pO2 314.0 H ABG HCO3 52.9 H ABG O2 Saturation 99.6 H ABG Base Excess 20.7 FiO2 100% Sodium 134.3 L Potassium 5.0 Chloride 86 L Carbon Dioxide 47 H* Anion Gap 1 L BUN 25 H Creatinine 0.55 Est GFR ( Amer) > 60 Glucose 108 Calcium 8.9 Total Bilirubin 0.7 AST 25 Alkaline Phosphatase 97 Total Protein 6.7 Albumin 3.8 03/05/20 02:27 WBC RBC Hgb Hct MCV MCH MCHC RDW Plt Count Seg Neutrophils % Carbonic Acid 2.65 H HCO3/H2CO3 Ratio 16:1 ABG pH 7.32 L ABG pCO2 88.1 H* ABG pO2 67.7 L ABG HCO3 44.6 H ABG O2 Saturation 90.8 L ABG Base Excess 14.6 FiO2 40% Sodium Potassium Chloride Carbon Dioxide Anion Gap BUN Creatinine Est GFR ( Amer) Glucose Calcium Total Bilirubin AST Alkaline Phosphatase Total Protein Albumin 03/04/20 21:20 Troponin I < 0.012 NT-Pro-B Natriuret Pep 2110 H Impressions: Chest X-Ray 03/04/20 22:22 IMPRESSION: Progressive volume loss in the lower lobes bilaterally suggestive of atelectasis or pneumonia. Assessment and Plan - Diagnosis (1) Acute exacerbation of chronic obstructive pulmonary disease Is this a current diagnosis for this admission?: Yes (2) Acute respiratory failure with hypoxia and hypercapnia Is this a current diagnosis for this admission?: Yes (3) Acute encephalopathy Is this a current diagnosis for this admission?: Yes (4) Paroxysmal atrial fibrillation Is this a current diagnosis for this admission?: Yes (5) Hypertension Qualifiers: Hypertension type: essential hypertension Qualified Code(s): I10 - Essential (primary) hypertension Is this a current diagnosis for this admission?: Yes (8) Tobacco use disorder, severe, dependence Is this a current diagnosis for this admission?: Yes - Plan Summary Summary: Patient will be admitted to [facility] where she will receive routine supportive and symptomatic cares. She will receive supplemental oxygen via nasal cannula and/or noninvasive airway pressure support devices such as BiPAP in order to maintain adequate oxygen saturation and alleviate her respiratory acidosis. She will receive IV fluids of lactated Ringer's at 167 mL/h for the first 12 hours. She will receive Levaquin 750 mg IV daily. She will receive an aggressive pulmonary toilet utilizing Xopenex, Atrovent and Pulmicort via nebulizer. She will receive Ativan 1 mg IV every 4 hours as needed for anxiety or restlessness. She will receive morphine sulfate 2 to 4 mg IV every 2 hours as needed for pain. She will have before meals and at bedtime Accu-Cheks performed with sliding scale insulin for hyperglycemia and a hypoglycemic protocol in place. She will receive Solu-Medrol 40 mg IV every 6 hours x3 doses to complete a burst dose protocol. She will be placed on a cardiac and diabetic diet as tolerated. CBCs, metabolic profiles, magnesium levels and additional laboratory and/or radiographic evaluations will be obtained as needed. - Time Time Spent with patient: Less than 15 minutes Medications reviewed and adjusted accordingly: Yes Anticipated discharge: Home with Homehealth - Inpatient Certification Based on my medical assessment, after consideration of the patient's comorbidities, presenting symptoms, or acuity I expect that the services needed warrant INPATIENT care.: Yes I certify that my determination is in accordance with my understanding of Medicare's requirements for reasonable and necessary INPATIENT services [42 CFR 412.3e].: Yes Medical Necessity: Significant Comorbidiites Make Outpatient Treatment Too Risky, Need Close Monitoring Due to Risk of Patient Decompensation, Need For IV Fluids, Need For Continuous Telemetry Monitoring, Need for Nebulizer Therapy and Monitoring of Response, Risk of Complication if Not Cared For in Hospital
[2020-03-05] MEDS: LEVOFLOXACIN 750 MG/D5W RTU 750 MG/150 ML RTUPB IV SCH ×2 (06:56→22:55)
[2020-03-05] MEDS: METHYLPREDNISOLONE INJ 40 MG/1 ML SDV IV SCH ×3 (06:57→17:49)
[2020-03-05] MEDS: HEPARIN SOD (PORCINE) 5,000 UNIT/ML 1 ML VIAL SUBCUT SCH ×2 (06:57→17:19)
[2020-03-05 08:57] LABS: CREATINE KINASE MB 0.82 ng/mL (<4.55)
[2020-03-05 08:59] LABS: TROPONIN I < 0.012 ng/mL
[2020-03-05] MEDS: IPRATROPIUM BROMIDE 0.02% NEB 0.5 MG/2.5 ML AMPUL NEB SCH ×3 (09:07→23:28)
[2020-03-05] MEDS: BUDESONIDE NEB 0.5 MG/2 ML AMPUL NEB SCH ×2 (09:07→20:17)
[2020-03-05] MEDS: LEVALBUTEROL HCL NEB 1.25 MG/3 ML AMPUL NEB SCH ×3 (09:07→23:28)
[2020-03-05 12:20] LABS: ARTERIAL BLOOD BASE EXCESS 18.1 mmol/L; ARTERIAL BLOOD H2CO3 2.23 mmol/L (1.05-1.35); ARTERIAL BLOOD O2 SATURATION 93.6 % (94-98); ARTERIAL BLOOD PH 7.41 (7.35-7.45); ARTERIAL BLOOD PO2 70.9 mmHg (80-100); ARTERIAL BLOOD TOTAL CO2 48.3 mmol/L (21-25)
[2020-03-05 12:23] LABS: ARTERIAL BLOOD FIO2 40%
[2020-03-05 12:24] LABS: ARTERIAL BLOOD PCO2 74.1 mmHg (35-45)
[2020-03-05 14:06] LABS: CREATINE KINASE MB 0.66 ng/mL (<4.55)
[2020-03-05 14:15] LABS: TROPONIN I < 0.012 ng/mL
[2020-03-05] MEDS ORDERED: TRAMADOL HCL 50 MG TABLET PO PRN (17:06)
[2020-03-05] MEDS ORDERED: (PENDING PHARMACY ID) (Glycopyrrolate/Formoterol Fum [Bevespi Aerosphere Inhaler] 2 PUFF) IH SCH ×2 (17:45→18:00)
[2020-03-05] MEDS: APIXABAN 5 MG TABLET PO SCH (17:49)
--- NOTE | 2020-03-05 20:16 | Progress Note ---
Provider Note Provider Note: Patient is a 54-year-old female with a past medical history of atrial fibrillation, CHF, CAD, DVT, chronically anticoagulated on Eliquis, hypertension, COPD, chronic respiratory failure (not home O2 dependent), migraine, DM 2, hypothyroidism, bipolar, depression, tobacco, dependency, and obesity who was admitted early this morning by the master merchandiser for acute on chronic respiratory failure related to COPD exacerbation. H&P, overnight events, vital signs, laboratory results, imaging studies, and orders reviewed. Agree with the plan of care as established by the previous provider. In addition: Patient's home medications have been reconciled and resumed as appropriate. She reports that she does not have diabetes; will check Hemoglobin A1c with a.m. lab work. Until then continue sliding scale insulin as previously ordered. Encourage pulmonary toilet with incentive spirometer, flutter valve, position changing, and early ambulation.
[2020-03-05 21:02] LABS: CREATINE KINASE MB 2.78 ng/mL (<4.55)
[2020-03-05 21:07] LABS: TROPONIN I < 0.012 ng/mL
[2020-03-06 06:41] LABS: HEMATOCRIT 34.8 % (36.0-47.0); HEMOGLOBIN 11.2 g/dL (12.0-15.5); MEAN CORPUSCULAR HEMOGLOBIN 29.9 pg (27.0-33.4); MEAN CORPUSCULAR HGB CONC 32.1 g/dL (32.0-36.0); MEAN CORPUSCULAR VOLUME 93 fl (80-97); PLATELET COUNT 240 10^3/uL (150-450); RED BLOOD COUNT 3.74 10^6/uL (3.72-5.28); RED CELL DISTRIBUTION WIDTH 15.2 % (11.5-14.0); WHITE BLOOD COUNT 5.3 10^3/uL (4.0-10.5)
[2020-03-06 06:58] LABS: BLOOD UREA NITROGEN 24 mg/dL (7-20); CALCIUM 8.3 mg/dL (8.4-10.2); CHLORIDE 88 mmol/L (98-107); GLUCOSE 103 mg/dL (75-110); POTASSIUM 4.7 mmol/L (3.6-5.0)
[2020-03-06 07:16] LABS: ANION GAP 1 (5-19)
[2020-03-06 07:17] LABS: CARBON DIOXIDE 44 mmol/L (22-30)
[2020-03-06] MEDS: BUDESONIDE NEB 0.5 MG/2 ML AMPUL NEB SCH ×2 (09:17→20:34)
[2020-03-06] MEDS: LEVALBUTEROL HCL NEB 1.25 MG/3 ML AMPUL NEB SCH ×2 (09:17→16:12)
[2020-03-06] MEDS: IPRATROPIUM BROMIDE 0.02% NEB 0.5 MG/2.5 ML AMPUL NEB SCH ×2 (09:18→16:12)
[2020-03-06] MEDS: DILTIAZEM HCL 120 MG CAP.SR.24H PO SCH (09:46)
[2020-03-06] MEDS: DILTIAZEM HCL 180 MG CAPSULE.CR PO SCH (09:46)
[2020-03-06] MEDS: ASPIRIN 81 MG TABLET, ENT COATED PO SCH (09:47)
[2020-03-06] MEDS: SERTRALINE HCL 50 MG TABLET PO SCH (09:47)
[2020-03-06] MEDS: FUROSEMIDE 40 MG TABLET PO SCH (09:47)
[2020-03-06] MEDS: APIXABAN 5 MG TABLET PO SCH ×2 (09:47→17:39)
[2020-03-06] MEDS ORDERED: DILTIAZEM HCL 300 MG PO SCH (10:00)
--- NOTE | 2020-03-06 17:26 | RADIOLOGY REPORT (SQ) ---
EXAM DESCRIPTION: FOOT BILATERAL 2 VIEWS IMAGES COMPLETED DATE/TIME: 03/06/2020 5:09 pm REASON FOR STUDY: foot pain COMPARISON: 02/23/2020 NUMBER OF VIEWS: Three views. TECHNIQUE: AP, lateral and oblique radiographic images acquired of the right and left foot. LIMITATIONS: None. FINDINGS: MINERALIZATION: Normal. BONES: A half plaster cast surrounds the right foot which limits osseous detail, new finding. As on the prior examination the right foot dated 02/23/2020, subacute fracture second through the fifth met atarsal heads as well as the fifth proximal phalanx. Soft tissue swelling. No acute fracture involving the left. Small bilateral plantar calcaneal spurs. JOINTS: No effusions. SOFT TISSUES: Soft tissue swelling. OTHER: No other significant finding. IMPRESSION: 1. The osseous detail on the right is limited due to half plaster cast which has been p laced since the previous examination dated 02/23/2020. No change in the appearance of the subacute fr actures involving the second through the fifth metatarsal heads and proximal phalanx of the fifth toe . 2. The left foot is stable in appearance. 3. Soft tissue swelling. TECHNICAL DOCUMENTATION: JOB ID: [id number] 2010 [employer]- All Rights Reserved Reading location - IP/workstation name: [email or web address]
--- NOTE | 2020-03-06 19:25 | PDOC PROGRESS REPORT ---
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 She was seen on morning rounds. She is found resting in bed, comfortably, on supplemental oxygen at 5 L/min; utilizes 4 L/min at baseline. Her primary complaint today is her bilateral foot pain. She states that she is unable to ambulate due to discomfort. She wants to know what we are going to do for her feet. She tells me that she has not followed up with orthopedics since her ED visit a few weeks ago. She also reports that she will not be able to return home prior to Thursday due to her daughter, who is her primary care provider, [place]. She is advised that I do not anticipate her admission to last that long and that she should begin contacting additional family members or friends to arrange for post discharge care. Otherwise, she has no new questions or concerns. She denies fever, chest pain, palpitations, dyspnea, cough, abdominal pain, nausea vomiting or diarrhea. No concerns per nursing. Reason For Visit: ACUTE RESPIRATORY FAILURE WITH HYPOXIA AND Physical Exam Vital Signs: Temp Pulse Resp BP Pulse Ox 98.0 F 91 15 133/74 H 98 03/06/20 11:45 03/06/20 16:15 03/06/20 16:15 03/06/20 11:45 03/06/20 16:15 Intake & Output 03/05/20 03/06/20 03/07/20 06:59 06:59 06:59 Intake Total 1135 459 Output Total 350 960 Balance 785 -501 Weight 93.3 kg 93.5 kg General appearance: PRESENT: no acute distress, disheveled, obese, well- developed, well-nourished. ABSENT: cooperative Head exam: PRESENT: atraumatic, normocephalic Eye exam: PRESENT: conjunctiva pink, EOMI, PERRLA. ABSENT: scleral icterus Mouth exam: PRESENT: moist, tongue midline Teeth exam: PRESENT: poor dentation Respiratory exam: PRESENT: clear to auscultation emerson, decreased breath sounds - Basilar, prolonged expiratory phas, symmetrical, unlabored, other - Supplemental oxygen by nasal cannula. ABSENT: rales, rhonchi, wheezes Cardiovascular exam: PRESENT: RRR. ABSENT: diastolic murmur, rubs, systolic murmur Vascular exam: PRESENT: normal capillary refill Extremities exam: PRESENT: full ROM. ABSENT: calf tenderness, clubbing, pedal edema Musculoskeletal exam: PRESENT: tenderness - Bilateral feet, other - Posterior Ortho-Glass splint to right leg Neurological exam: PRESENT: alert, awake, oriented to person, oriented to place, oriented to time, oriented to situation, CN II-XII grossly intact. ABSENT: motor sensory deficit Psychiatric exam: PRESENT: appropriate affect, normal mood. ABSENT: homicidal ideation, suicidal ideation Skin exam: PRESENT: dry, intact, warm. ABSENT: cyanosis, rash Results Laboratory Results: 03/06/20 05:52 03/06/20 05:52 03/06/20 03/06/20 05:52 05:52 WBC 5.3 RBC 3.74 Hgb 11.2 L Hct 34.8 L MCV 93 MCH 29.9 MCHC 32.1 RDW 15.2 H Plt Count 240 Sodium 132.7 L Potassium 4.7 Chloride 88 L Carbon Dioxide 44 H* Anion Gap 1 L BUN 24 H Creatinine 0.69 Est GFR ( Amer) > 60 Glucose 103 Calcium 8.3 L Magnesium 2.6 H 03/04/20 03/05/20 03/05/20 21:20 07:34 07:34 Creatine Kinase 21 L CK-MB (CK-2) 0.82 Troponin I < 0.012 < 0.012 NT-Pro-B Natriuret Pep 2110 H 03/05/20 03/05/20 03/05/20 13:10 13:10 19:40 Creatine Kinase 24 L 297 H CK-MB (CK-2) 0.66 Troponin I < 0.012 NT-Pro-B Natriuret Pep 03/05/20 19:40 Creatine Kinase CK-MB (CK-2) 2.78 Troponin I < 0.012 NT-Pro-B Natriuret Pep Impressions: Chest X-Ray 03/04/20 22:22 IMPRESSION: Progressive volume loss in the lower lobes bilaterally suggestive of atelectasis or pneumonia. Foot X-Ray 03/06/20 00:00 IMPRESSION: 1. The osseous detail on the right is limited due to half plaster cast which has been placed since the previous examination dated 02/23/2020. No change in the appearance of the subacute fractures involving the second through the fifth metatarsal heads and proximal phalanx of the fifth toe. 2. The left foot is stable in appearance. 3. Soft tissue swelling. Assessment and Plan - Diagnosis (1) Acute exacerbation of chronic obstructive pulmonary disease Is this a current diagnosis for this admission?: Yes Plan: Patient is admitted to the medical floor on continuous cardiac telemetry. She is been empirically placed on Levaquin for increased sputum production. She is supported with supplemental oxygen as needed to maintain saturations greater than 89%. Continue BiPAP nightly and PRN. Continue scheduled and as needed nebulizer treatments. Continue p.o. prednisone. Mucinex twice daily, Robitussin as needed. Encourage pulmonary toilet with incentive spirometer, flutter valve, and early ambulation. (2) Acute respiratory failure with hypoxia and hypercapnia Is this a current diagnosis for this admission?: Yes Plan: Secondary to #1. Evaluation management as above. (3) Hypertension Qualifiers: Hypertension type: essential hypertension Qualified Code(s): I10 - Essential (primary) hypertension Is this a current diagnosis for this admission?: Yes Plan: Blood pressures are adequately controlled on home medication regiment. 133/74 today. Continue home dose diltiazem and furosemide. IV hydralazine as needed for blood pressure control. Cardiac diet. (4) Paroxysmal atrial fibrillation Is this a current diagnosis for this admission?: Yes Plan: Rate controlled on home dose diltiazem. Continue on dose Eliquis. Monitor on telemetry. (5) Acute encephalopathy Is this a current diagnosis for this admission?: Yes Plan: Resolved; likely secondary to COPD exacerbation with respiratory failure and hypercapnia. PCO2 on arrival was 117; trended down to 74. Baseline appears to be around 60. Continue supplemental oxygen and BiPAP nightly. Encourage daytime use. Supportive care. (6) Tobacco use disorder, severe, dependence Is this a current diagnosis for this admission?: Yes Plan: Smoking cessation encouraged. Nicotine replacement therapies provided. (7) Bilateral foot pain Is this a current diagnosis for this admission?: Yes Plan: Patient with subacute distal right metatarsal fractures #2-5 with short leg posterior Ortho-Glass splint in place. Has not followed up with orthopedics as was previously recommended by ED provider 3 weeks ago. Left foot imaging is unremarkable. Keep extremity elevated. Nonweightbearing; use walker for transitions. Orthopedics will be consulted in the morning as this is a nonurgent issue. PT/OT consultation requested. Analgesics as needed; avoid narcotics secondary to respiratory status. - Time Time Spent with patient: 25-34 minutes Medications reviewed and adjusted accordingly: Yes Anticipated discharge: Home Within: within 48 hours
[2020-03-06] MEDS: GUAIFENESIN 600 MG TABLET.SA PO SCH (22:01)
[2020-03-06] MEDS: LEVOFLOXACIN 750 MG/D5W RTU 750 MG/150 ML RTUPB IV SCH (22:01)
[2020-03-07] MEDS: IPRATROPIUM BROMIDE 0.02% NEB 0.5 MG/2.5 ML AMPUL NEB SCH ×3 (00:57→17:53)
[2020-03-07] MEDS: LEVALBUTEROL HCL NEB 1.25 MG/3 ML AMPUL NEB SCH ×3 (00:57→20:55)
[2020-03-07 05:50] LABS: HEMATOCRIT 34.7 % (36.0-47.0); HEMOGLOBIN 11.3 g/dL (12.0-15.5); MEAN CORPUSCULAR HEMOGLOBIN 30.1 pg (27.0-33.4); MEAN CORPUSCULAR HGB CONC 32.5 g/dL (32.0-36.0); MEAN CORPUSCULAR VOLUME 93 fl (80-97); PLATELET COUNT 239 10^3/uL (150-450); RED BLOOD COUNT 3.74 10^6/uL (3.72-5.28); RED CELL DISTRIBUTION WIDTH 15.7 % (11.5-14.0)
[2020-03-07 06:11] LABS: BLOOD UREA NITROGEN 24 mg/dL (7-20); CALCIUM 8.1 mg/dL (8.4-10.2); CHLORIDE 88 mmol/L (98-107); GLUCOSE 87 mg/dL (75-110); POTASSIUM 4.6 mmol/L (3.6-5.0)
[2020-03-07 06:24] LABS: CARBON DIOXIDE 45 mmol/L (22-30)
[2020-03-07 06:31] LABS: ANION GAP -1 (5-19)
[2020-03-07] MEDS: BUDESONIDE NEB 0.5 MG/2 ML AMPUL NEB SCH ×2 (08:35→20:55)
[2020-03-07] MEDS: SERTRALINE HCL 50 MG TABLET PO SCH (10:03)
[2020-03-07] MEDS: FUROSEMIDE 40 MG TABLET PO SCH (10:03)
[2020-03-07] MEDS: APIXABAN 5 MG TABLET PO SCH ×2 (10:03→17:29)
[2020-03-07] MEDS: ASPIRIN 81 MG TABLET, ENT COATED PO SCH (10:03)
[2020-03-07] MEDS: GUAIFENESIN 600 MG TABLET.SA PO SCH ×2 (10:04→21:18)
[2020-03-07] MEDS: DILTIAZEM HCL 120 MG CAP.SR.24H PO SCH (10:04)
[2020-03-07] MEDS: DILTIAZEM HCL 180 MG CAPSULE.CR PO SCH (10:04)
[2020-03-07] MEDS: PREDNISONE 20 MG TABLET PO SCH (10:04)
--- NOTE | 2020-03-07 14:29 | PDOC PROGRESS REPORT ---
Subjective Progress Note for:: 03/07/20 Subjective:: Patient is a 54-year-old female with a past medical history of atrial fibrillation, CHF, CAD, DVT, chronically anticoagulated on Eliquis, hypertension, COPD, chronic respiratory failure (not home O2 dependent), migraine, DM 2, hypothyroidism, bipolar, depression, tobacco, dependency, and obesity who was admitted for acute on chronic respiratory failure related to [place] PD exacerbation. She was seen on morning rounds. She is found resting in bed, comfortably, on supplemental oxygen at 3.5 L/min; utilizes 4 L/min at baseline. Her primary complaint today continues to be bilateral foot pain. Otherwise, she states she is "fine." She denies fever, chest pain, palpitations, dyspnea, cough, abdominal pain, nausea vomiting or diarrhea. She is informed that her orthopedic consult has been placed for her right foot. She is encouraged to change positions frequently and to get up to the recliner for her meals. I also encouraged her to contact family or friends because we anticipate her to be ready for discharge early tomorrow morning. No concerns per nursing. Reason For Visit: ACUTE RESPIRATORY FAILURE WITH HYPOXIA AND Physical Exam Vital Signs: Temp Pulse Resp BP Pulse Ox 98.0 F 82 14 110/52 L 94 03/07/20 08:09 03/07/20 08:35 03/07/20 08:35 03/07/20 08:09 03/07/20 08:35 Intake & Output 03/06/20 03/07/20 03/08/20 06:59 06:59 06:59 Intake Total 1135 577 150 Output Total 350 1710 Balance 785 -1133 150 Weight 93.5 kg 95.2 kg General appearance: PRESENT: no acute distress, disheveled, obese, well- developed, well-nourished Head exam: PRESENT: atraumatic, normocephalic Eye exam: PRESENT: conjunctiva pink, EOMI, PERRLA. ABSENT: scleral icterus Mouth exam: PRESENT: moist, tongue midline Teeth exam: PRESENT: poor dentation Neck exam: ABSENT: carotid bruit, JVD, lymphadenopathy, thyromegaly Respiratory exam: PRESENT: clear to auscultation emerson, prolonged expiratory phas, symmetrical, unlabored, other - Baseline oxygen requirement. ABSENT: rales, rhonchi, wheezes Cardiovascular exam: PRESENT: RRR. ABSENT: diastolic murmur, rubs, systolic murmur Vascular exam: PRESENT: normal capillary refill Extremities exam: PRESENT: full ROM, tenderness - Posterior short-leg Ortho- Glass splint to right le. ABSENT: calf tenderness, clubbing, pedal edema Neurological exam: PRESENT: alert, awake, oriented to person, oriented to place, oriented to time, oriented to situation, CN II-XII grossly intact. ABSENT: motor sensory deficit Psychiatric exam: PRESENT: appropriate affect, normal mood. ABSENT: homicidal ideation, suicidal ideation Skin exam: PRESENT: dry, intact, warm. ABSENT: cyanosis, rash Results Laboratory Results: 03/07/20 05:20 03/07/20 05:20 03/07/20 03/07/20 05: 05:20 WBC 6.0 RBC 3.74 Hgb 11.3 L Hct 34.7 L MCV 93 MCH 30.1 MCHC 32.5 RDW 15.7 H Plt Count 239 Sodium 132.0 L Potassium 4.6 Chloride 88 L Carbon Dioxide 45 H* Anion Gap -1 L BUN 24 H Creatinine 0.64 Est GFR ( Amer) > 60 Glucose 87 Calcium 8.1 L Magnesium 2.3 03/04/20 03/05/20 03/05/20 21:20 07:34 07:34 Creatine Kinase 21 L CK-MB (CK-2) 0.82 Troponin I < 0.012 < 0.012 NT-Pro-B Natriuret Pep 2110 H 03/05/20 03/05/20 03/05/20 13:10 13:10 19:40 Creatine Kinase 24 L 297 H CK-MB (CK-2) 0.66 Troponin I < 0.012 NT-Pro-B Natriuret Pep 03/05/20 19:40 Creatine Kinase CK-MB (CK-2) 2.78 Troponin I < 0.012 NT-Pro-B Natriuret Pep Impressions: Chest X-Ray 03/04/20 22:22 IMPRESSION: Progressive volume loss in the lower lobes bilaterally suggestive of atelectasis or pneumonia. Foot X-Ray 03/06/20 00:00 IMPRESSION: 1. The osseous detail on the right is limited due to half plaster cast which has been placed since the previous examination dated 02/23/2020. No change in the appearance of the subacute fractures involving the second through the fifth metatarsal heads and proximal phalanx of the fifth toe. 2. The left foot is stable in appearance. 3. Soft tissue swelling. Assessment and Plan - Diagnosis (1) Acute exacerbation of chronic obstructive pulmonary disease Is this a current diagnosis for this admission?: Yes Plan: Improved; and with clear lung sounds and maintaining oxygen saturations on her baseline oxygen requirement. Patient is admitted to the medical floor on continuous cardiac telemetry. She is been empirically placed on Levaquin for increased sputum production. She is supported with supplemental oxygen as needed to maintain saturations greater than 89%. Continue BiPAP nightly and PRN. Continue scheduled and as needed nebulizer treatments. Continue p.o. prednisone. Mucinex twice daily, Robitussin as needed. Encourage pulmonary toilet with incentive spirometer, flutter valve, and early ambulation. (2) Acute respiratory failure with hypoxia and hypercapnia Is this a current diagnosis for this admission?: Yes Plan: Secondary to #1. Evaluation management as above. (3) Hypertension Qualifiers: Hypertension type: essential hypertension Qualified Code(s): I10 - Essential (primary) hypertension Is this a current diagnosis for this admission?: Yes Plan: Blood pressures are adequately controlled on home medication regiment. 110/52 today. Continue home dose diltiazem and furosemide. IV hydralazine as needed for blood pressure control. Cardiac diet. (4) Paroxysmal atrial fibrillation Is this a current diagnosis for this admission?: Yes Plan: Rate controlled on home dose diltiazem. Continue on dose Eliquis. Monitor on telemetry. (5) Acute encephalopathy Is this a current diagnosis for this admission?: Yes Plan: Resolved; likely secondary to COPD exacerbation with respiratory failure and hypercapnia. PCO2 on arrival was 117; trended down to 74. Baseline appears to be around 60. Continue supplemental oxygen and BiPAP nightly. Supportive care. (6) Tobacco use disorder, severe, dependence Is this a current diagnosis for this admission?: Yes Plan: Smoking cessation encouraged. Nicotine replacement therapies provided. (7) Bilateral foot pain Is this a current diagnosis for this admission?: Yes Plan: Patient with subacute distal right metatarsal fractures #2-5 with short leg posterior Ortho-Glass splint in place. Has not followed up with orthopedics as was previously recommended by ED provider 3 weeks ago. Left foot imaging is unremarkable. Keep extremity elevated. Nonweightbearing; use walker for transitions. Orthopedics is consulted; appreciate Dr. Sequeira's recommendations. PT/OT consultation requested. Analgesics as needed; avoid narcotics secondary to respiratory status. - Time Time Spent with patient: 25-34 minutes Medications reviewed and adjusted accordingly: Yes Anticipated discharge: Home Within: within 24 hours
--- NOTE | 2020-03-07 18:18 | PDOC H&P ---
History of Present Illness Admission Date/PCP: 03/05/20 03:53 History of Present Illness: TRISTA ESTRELLA is a 54 year old female who presented the emergency room with acute respiratory failure. She has a history of multiple falls. She is a poor historian and does not recall the details of her falls but she does have some bruising along her flank and potential history of alcohol use with recurrent visits to the emergency department. Today she is complaining of right foot pain. Upon asking further details she describes an ache in the right foot at the forefoot that 3 out of 10 pain at rest but worsens with weightbearing. She is in a posterior splint at this time as placed in the emergency department from her prior visit. On 02/13/2028 she had x-rays taken where they recognized a potential fracture in the proximal phalanx of the right fifth toe. She is unsure if she initially fell at that time or if she fell. Potentially a week ago. She does not recall having pain prior then about 3 weeks ago. Again she does not really recall the fall and cannot give any details on that matter. Past Medical History Cardiac Medical History: Reports: Atrial Fibrillation, Congestive Heart Failure, Coronary Artery Disease, DVT, Hypertension Denies: Myocardial Infarction Pulmonary Medical History: Reports: Asthma, Chronic Obstructive Pulmonary Disease (COPD), Respiratory Failure Denies: Bronchitis, Pneumonia, Tuberculosis EENT Medical History: Denies: Cataracts, Ears - Hearing aids Neurological Medical History: Reports: Migraine Denies: Hemorrhagic CVA, Ischemic CVA, Seizures Endocrine Medical History: Reports: Diabetes Mellitus Type 2, Hypothyroidism Denies: Diabetes Mellitus Type 1, Hyperthyroidism Renal/ Medical History: Denies: Chronic Kidney Disease, Nephrolithiasis Malignancy Medical History: Reports: None GI Medical History: Reports: Gastroesophageal Reflux Disease Denies: Cirrhosis, Crohn's Disease, Hepatitis, Peptic Ulcer Disease, U lcerative Colitis Musculoskeltal Medical History: Denies: Arthritis, Gout Skin Medical History: Denies: Eczema, Psoriasis Psychiatric Medical History: Reports: Bipolar Disorder, Depression, Tobacco Dependency Denies: Alcohol Dependency, Substance Abuse Traumatic Medical History: Reports: None Hematology: Denies: Anemia, Bleeding Tendencies Infectious Medical History: Reports: None Past Surgical History Past Surgical History: Reports: Section - x 2, Cholecystectomy, Tubal Ligation Denies: Pacemaker Social History Lives with: Alone Smoking Status: Current Every Day Smoker Cigarettes Packs Per Day: 0.2 Electronic Cigarette use?: No Number of Years Smokin Last Time Smoked: 03/04/20 Frequency of Alcohol Use: None Hx Recreational Drug Use: No Drugs: None Hx Prescription Drug Abuse: No - Advance Directive Resuscitation Status: Full Code Family History Family History: Reviewed & Not Pertinent, Arthritis, CAD, CVA, DM, Hyperlipidemia, Hypertension, Malignancy, Thyroid Disfunction Parental Family History Reviewed: No Children Family History Reviewed: NA Sibling(s) Family History Reviewed.: NA Medication/Allergy Home Medications: Albuterol Sulfate [Proair HFA Inhalation Aerosol 8.5 gm MDI] 2 puff IH Q4HP PRN 11/22/19 Glycopyrrolate/Formoterol Fum [Bevespi Aerosphere Inhaler] 2 puff IH BID 11/22/19 Sertraline HCl [Zoloft 50 mg Tablet] 50 mg PO DAILY 11/22/19 Apixaban [Eliquis 5 mg Tablet] 5 mg PO BID 30 Days #60 tablet 11/24/19 Aspirin [Adult Low Dose Aspirin EC] 81 mg PO DAILY 30 Days #30 tablet.dr 11/24/19 Diltiazem HCl [Diltiazem ER] 300 mg PO DAILY 30 Days #30 tab.er.24h 11/24/19 Furosemide [Lasix 40 mg Tablet] 40 mg PO DAILY 03/05/20 Ipratropium/Albuterol Sulfate [Duoneb 3 ml Ampul] 1 vial NEB QIDP PRN 03/05/20 Tramadol HCl [Ultram 50 mg Tablet] 50 mg PO Q6HP PRN 03/05/20 Allergies/Adverse Reactions: levothyroxine sodium [From Synthroid] Allergy (Verified 02/23/20 04:24) methotrexate [Methotrexate] Allergy (Verified 02/23/20 04:24) yellow dye [Yellow Dye] Allergy (Verified 02/23/20 04:24) azithromycin [Azithromycin] Adverse Reaction (Verified 02/23/20 04:24) temazepam [From Restoril] Adverse Reaction (Verified 02/23/20 04:24) Review of Systems Review of Systems: Patient is a poor historian and a full review of systems is unable to be obtained at this time due to poor recollection by the patient. She denies current discomfort of any sort and less reminded that she has foot pain. Physical Exam Vital Signs: Temp Pulse Resp BP Pulse Ox 98.0 F 90 14 110/52 L 94 03/07/20 08:09 03/07/20 14:00 03/07/20 08:35 03/07/20 08:09 03/07/20 08:35 Intake & Output 03/06/20 03/07/20 03/08/20 06:59 06:59 06:59 Intake Total 1135 577 150 Output Total 350 1710 Balance 785 -1133 150 Weight 93.5 kg 95.2 kg Physical Exam: General appearance: PRESENT: no acute distress, disheveled, obese, well- developed, well-nourished Head exam: PRESENT: atraumatic, normocephalic Eye exam: PRESENT: conjunctiva pink, EOMI, PERRLA. ABSENT: scleral icterus Mouth exam: PRESENT: moist, tongue midline Teeth exam: PRESENT: poor dentation Neck exam: ABSENT: carotid bruit, JVD, lymphadenopathy, thyromegaly Respiratory exam: PRESENT: clear to auscultation emerson, prolonged expiratory phas, symmetrical, unlabored, other - Baseline oxygen requirement. ABSENT: rales, rhonchi, wheezes Cardiovascular exam: PRESENT: RRR. ABSENT: diastolic murmur, rubs, systolic murmur Vascular exam: PRESENT: normal capillary refill Extremities exam: PRESENT: full ROM, tenderness - Posterior short-leg Ortho- Glass splint to right le. ABSENT: calf tenderness, clubbing, pedal edema Neurological exam: PRESENT: alert, awake, oriented to person, oriented to place, oriented to time, oriented to situation, CN II-XII grossly intact. ABSENT: motor sensory deficit Psychiatric exam: PRESENT: appropriate affect, normal mood. ABSENT: homicidal ideation, suicidal ideation Skin exam: PRESENT: dry, intact, warm. ABSENT: cyanosis, rash Right lower extremity. There is tenderness palpation at the distal foot. There is no ecchymosis or bruising at this time aside from at the proximal phalanx of the right first toe. Skin is intact. Range of motion of the toes is nearly full without pain. Capillary refill is 2 seconds. There is no overt swelling or signs of injury, there is no altered alignment of the toes. Results Laboratory Results: 03/07/20 05:20 03/07/20 05:20 03/07/20 03/07/20 05:20 05:20 WBC 6.0 RBC 3.74 Hgb 11.3 L Hct 34.7 L MCV 93 MCH 30.1 MCHC 32.5 RDW 15.7 H Plt Count 239 Sodium 132.0 L Potassium 4.6 Chloride 88 L Carbon Dioxide 45 H* Anion Gap -1 L BUN 24 H Creatinine 0.64 Est GFR ( Amer) > 60 Glucose 87 Calcium 8.1 L Magnesium 2.3 03/04/20 03/05/20 03/05/20 21:20 07:34 07:34 Creatine Kinase 21 L CK-MB (CK-2) 0.82 Troponin I < 0.012 < 0.012 NT-Pro-B Natriuret Pep 2110 H 03/05/20 03/05/20 03/05/20 13:10 13:10 19:40 Creatine Kinase 24 L 297 H CK-MB (CK-2) 0.66 Troponin I < 0.012 NT-Pro-B Natriuret Pep 03/05/20 19:40 Creatine Kinase CK-MB (CK-2) 2.78 Troponin I < 0.012 NT-Pro-B Natriuret Pep Impressions: Chest X-Ray 03/04/20 22:22 IMPRESSION: Progressive volume loss in the lower lobes bilaterally suggestive of atelectasis or pneumonia. Foot X-Ray 03/06/20 00:00 IMPRESSION: 1. The osseous detail on the right is limited due to half plaster cast which has been placed since the previous examination dated 02/23/2020. No change in the appearance of the subacute fractures involving the second through the fifth metatarsal heads and proximal phalanx of the fifth toe. 2. The left foot is stable in appearance. 3. Soft tissue swelling. Assessment & Plan - Diagnosis (1) Fracture of metatarsal of right foot, closed Plan: Upon reviewing films it does appear to be old fractures of the right second through fourth metatarsals however these appear chronic and were present on 02/12 without changes since that time. The injury appreciated on 02/13/2020 films appears to be chronic as well without acute signs of injury on the most recent three-view right foot films. These fractures appear stable and the patient is able to have her right lower extremity splint removed and weight-bear as tolerated. Encourage out of bed and range of motion. Consider physical therapy.
[2020-03-08] MEDS: IPRATROPIUM BROMIDE 0.02% NEB 0.5 MG/2.5 ML AMPUL NEB SCH ×2 (00:52→07:27)
[2020-03-08 06:05] LABS: HEMATOCRIT 34.6 % (36.0-47.0); HEMOGLOBIN 11.2 g/dL (12.0-15.5); MEAN CORPUSCULAR HEMOGLOBIN 29.6 pg (27.0-33.4); MEAN CORPUSCULAR HGB CONC 32.3 g/dL (32.0-36.0); MEAN CORPUSCULAR VOLUME 92 fl (80-97); PLATELET COUNT 233 10^3/uL (150-450); RED BLOOD COUNT 3.78 10^6/uL (3.72-5.28); RED CELL DISTRIBUTION WIDTH 15.3 % (11.5-14.0); WHITE BLOOD COUNT 5.1 10^3/uL (4.0-10.5)
[2020-03-08 06:25] LABS: BLOOD UREA NITROGEN 26 mg/dL (7-20); CALCIUM 8.6 mg/dL (8.4-10.2); CHLORIDE 90 mmol/L (98-107); GLUCOSE 88 mg/dL (75-110); POTASSIUM 4.5 mmol/L (3.6-5.0)
[2020-03-08 06:34] LABS: ANION GAP 3 (5-19); CARBON DIOXIDE 43 mmol/L (22-30)
[2020-03-08] MEDS: BUDESONIDE NEB 0.5 MG/2 ML AMPUL NEB SCH (07:27)
[2020-03-08] MEDS: LEVALBUTEROL HCL NEB 1.25 MG/3 ML AMPUL NEB SCH (07:27)
[2020-03-08] MEDS: FUROSEMIDE 40 MG TABLET PO SCH (09:35)
[2020-03-08] MEDS: APIXABAN 5 MG TABLET PO SCH (09:35)
[2020-03-08] MEDS: PREDNISONE 20 MG TABLET PO SCH (09:35)
[2020-03-08] MEDS: DILTIAZEM HCL 180 MG CAPSULE.CR PO SCH (09:35)
[2020-03-08] MEDS: GUAIFENESIN 600 MG TABLET.SA PO SCH (09:36)
[2020-03-08] MEDS: SERTRALINE HCL 50 MG TABLET PO SCH (09:36)
[2020-03-08] MEDS: DILTIAZEM HCL 120 MG CAP.SR.24H PO SCH (09:36)
[2020-03-08] MEDS: ASPIRIN 81 MG TABLET, ENT COATED PO SCH (09:36)
[2020-03-08] MEDS ORDERED: LEVOFLOXACIN 750 MG TABLET PO SCH (10:00)
[2020-03-08 13:02] VITALS: BP 123/69
--- NOTE | 2020-03-08 18:57 | PDOC DISCHARGE SUMMARY ---
Impression - Admit/DC Date/PCP Admission Date/Primary Care Provider: 03/05/20 03:53 Discharge Date: 03/08/20 - Discharge Diagnosis (1) Acute exacerbation of chronic obstructive pulmonary disease Is this a current diagnosis for this admission?: Yes (2) Acute respiratory failure with hypoxia and hypercapnia Is this a current diagnosis for this admission?: Yes (3) Hypertension Is this a current diagnosis for this admission?: Yes (4) Paroxysmal atrial fibrillation Is this a current diagnosis for this admission?: Yes (5) Acute encephalopathy Is this a current diagnosis for this admission?: Yes (6) Tobacco use disorder, severe, dependence Is this a current diagnosis for this admission?: Yes (7) Bilateral foot pain Is this a current diagnosis for this admission?: Yes - Additional Information Resuscitation Status: Full Code Discharge Diet: Cardiac Discharge Activity: Activity As Tolerated, Balance Activity w/Rest Referrals: IDALIA SEQUEIRA JR, DO [ACTIVE PROVISIONAL STAFF] - 03/14/20 1:00 pm RAMON HORN FNP [NO LOCAL MD] - 03/15/20 10:15 am Prescriptions: Prednisone [Deltasone 20 mg Tablet] 60 mg PO DAILY #12 tablet Levofloxacin [Levaquin 750 mg Tablet] 750 mg PO DAILY #4 tablet Nicotine [Nicoderm 21 mg/24 Hr Transderm Patch] 1 each TD DAILYP PRN #30 patch.td24 PRN Reason: Home Medications: Albuterol Sulfate [Proair HFA Inhalation Aerosol 8.5 gm MDI] 2 puff IH Q4HP PRN 11/22/19 Glycopyrrolate/Formoterol Fum [Bevespi Aerosphere Inhaler] 2 puff IH BID 11/22/19 Sertraline HCl [Zoloft 50 mg Tablet] 50 mg PO DAILY 11/22/19 Apixaban [Eliquis 5 mg Tablet] 5 mg PO BID 30 Days #60 tablet 11/24/19 Aspirin [Adult Low Dose Aspirin EC] 81 mg PO DAILY 30 Days #30 tablet. 11/24/19 Diltiazem HCl [Diltiazem 24Hr ER (LA)] 300 mg PO DAILY 30 Days #30 tab.er.24h 11/24/19 Furosemide [Lasix 40 mg Tablet] 40 mg PO DAILY 03/05/20 Ipratropium/Albuterol Sulfate [Duoneb 3 ml Ampul] 1 vial NEB QIDP PRN 03/05/20 Tramadol HCl [Ultram 50 mg Tablet] 50 mg PO Q6HP PRN 03/05/20 Acetaminophen [Tylenol 325 mg Tablet] 650 mg PO Q4HP PRN tablet 03/08/20 Levofloxacin [Levaquin 750 mg Tablet] 750 mg PO DAILY #4 tablet 03/08/20 Nicotine [Nicoderm 21 mg/24 Hr Transderm Patch] 1 each TD DAILYP PRN #30 patch.td24 03/08/20 Prednisone [Deltasone 20 mg Tablet] 60 mg PO DAILY #12 tablet 03/08/20 History of Present Illiness History of Present Illness: Per H&P by Dr. Mackay: TRISTA ESTRELLA is a 54 year old female who presented to the emergency room today via EMS with acute respiratory failure. She had summoned EMS to her home to be taken to the hospital for bilateral ankle pain. Upon their arrival at her home they discovered her to have an O2 sat in the 50s and to be in severe respiratory distress. They placed her on CPAP and administered IV Solu-Medrol, magnesium and nitroglycerin. Upon arrival emergency room patient was noted to have an O2 sat of 84% but she is acutely confused, even with current therapy having been converted to BiPAP. Her PCO2 was 117 initially and has improved to the mid 80s with her current BiPAP settings. Due to her confusion patient is unable to provide significant input to her medical record. She was subsequently admitted to the hospital for further evaluation and treatment. Hospital Course Hospital Course: (1) Acute exacerbation of chronic obstructive pulmonary disease Resolved; clear lung sounds and maintaining oxygen saturations on her baseline oxygen requirement. Patient was admitted to the medical floor on continuous cardiac telemetry. She was been empirically placed on Levaquin for increased sputum production; transitioned to p.o. to complete course of therapy. She is supported with supplemental oxygen and BiPAP, as needed, to maintain saturations greater than 89%. She was placed on scheduled and as needed nebulizer treatments. Discharged on p.o. prednisone. Mucinex twice daily, Robitussin as needed. Encourage pulmonary toilet with incentive spirometer, flutter valve, and ambulation. May benefit from outpatient pulmonology consultation. (2) Acute respiratory failure with hypoxia and hypercapnia Secondary to #1. Evaluation management as above. (3) Hypertension Blood pressures are adequately controlled on home medication regiment. Continue home dose diltiazem and furosemide. Cardiac diet. (4) Paroxysmal atrial fibrillation Rate controlled on home dose diltiazem. Continue on dose Eliquis. (5) Acute encephalopathy Resolved; secondary to COPD exacerbation with respiratory failure and hypercapnia. PCO2 on arrival was 117; trended down to 74. Baseline appears to be around 60. Continue supplemental oxygen and BiPAP nightly. (6) Tobacco use disorder, severe, dependence Smoking cessation encouraged. Nicotine replacement therapies provided. (7) Bilateral foot pain Patient with subacute distal right metatarsal fractures #2-5 with short leg posterior Ortho-Glass splint in place. Has not followed up with orthopedics as was previously recommended by ED provider 3 weeks ago. Left foot imaging is unremarkable. Orthopedics is consulted; appreciate Dr. Sequeira's recommendations. Analgesics as needed; avoid narcotics secondary to respiratory status. (8) Metatarsal of right foot, closed Orthopedics was consulted; appreciate Dr. Sequeira's evaluation recommendations. Short leg cast was removed. She is encouraged to weight-bear as tolerated. She reports that she has a front wheel walker at home. She requests a bedside commode; this is been arranged by our discharge planning services. She is recommended to utilize [id number] analgesic medications per package instructions for discomfort. Physical Exam Vital Signs: Temp Pulse Resp BP Pulse Ox 97.9 F 77 15 123/69 100 03/08/20 13:00 03/08/20 13:00 03/08/20 13:00 03/08/20 13:00 03/08/20 13:00 Intake & Output 03/07/20 03/08/20 03/09/20 06:59 06:59 06:59 Intake Total 577 952 Output Total 1710 Balance -1133 952 Weight 95.2 kg 95.2 kg General appearance: PRESENT: no acute distress, disheveled, obese, well- developed, well-nourished Head exam: PRESENT: atraumatic, normocephalic Eye exam: PRESENT: conjunctiva pink, EOMI, PERRLA. ABSENT: scleral icterus Mouth exam: PRESENT: moist, tongue midline Teeth exam: PRESENT: poor dentation Respiratory exam: PRESENT: clear to auscultation emerson, symmetrical, unlabored, other - Baseline oxygen requirement. ABSENT: rales, rhonchi, wheezes Cardiovascular exam: PRESENT: RRR. ABSENT: diastolic murmur, rubs, systolic murmur Vascular exam: PRESENT: normal capillary refill Extremities exam: PRESENT: full ROM, tenderness - Right foot. ABSENT: calf tenderness, clubbing, pedal edema Neurological exam: PRESENT: alert, awake, oriented to person, oriented to place, oriented to time, oriented to situation, CN II-XII grossly intact. ABSENT: motor sensory deficit Psychiatric exam: PRESENT: appropriate affect, normal mood. ABSENT: homicidal ideation, suicidal ideation Skin exam: PRESENT: dry, intact, warm. ABSENT: cyanosis, rash Results Laboratory Results: WBC 5.1 10^3/uL (4.0-10.5) 03/08/20 05:33 RBC 3.78 10^6/uL (3.72-5.28) 03/08/20 05:33 Hgb 11.2 g/dL (12.0-15.5) L 03/08/20 05:33 Hct 34.6 % (36.0-47.0) L 03/08/20 05:33 MCV 92 fl (80-97) 03/08/20 05:33 MCH 29.6 pg (27.0-33.4) 03/08/20 05:33 MCHC 32.3 g/dL (32.0-36.0) 03/08/20 05:33 RDW 15.3 % (11.5-14.0) H 03/08/20 05:33 Plt Count 233 10^3/uL (150-450) 03/08/20 05:33 Lymph % (Auto) 14.5 % (13-45) 03/04/20 21:20 [facility] % (Auto) 7.5 % (3-13) 03/04/20 21:20 Eos % (Auto) 1.3 % (0-6) 03/04/20 21: Baso % (Auto) 0.8 % (0-2) 03/04/20 21:20 Absolute Neuts (auto) 4.9 10^3/uL (1.7-8.2) 03/04/20 21:20 Absolute Lymphs (auto) 0.9 10^3/uL (0.5-4.7) 03/04/20 21:20 Absolute Monos (auto) 0.5 10^3/uL (0.1-1.4) 03/04/20 21:20 Absolute Eos (auto) 0.1 10^3/uL (0.0-0.6) 03/04/20 21:20 Absolute Basos (auto) 0.0 10^3/uL (0.0-0.2) 03/04/20 21:20 Seg Neutrophils % 75.9 % (42-78) 03/04/20 21:20 Carbonic Acid 2.23 mmol/L (1.05-1.35) H 03/05/20 11:50 HCO3/H2CO3 Ratio 20:1 03/05/20 11:50 ABG pH 7.41 (7.35-7.45) 03/05/20 11:50 ABG pCO2 74.1 mmHg (35-45) H* 03/05/20 11:50 ABG pO2 70.9 mmHg (80-100) L 03/05/20 11:50 ABG HCO3 46.0 mmol/L (20-24) H 03/05/20 11:50 ABG Total CO2 48.3 mmol/L (21-25) H 03/05/20 11:50 ABG O2 Saturation 93.6 % (94-98) L 03/05/20 11:50 ABG Base Excess 18.1 mmol/L 03/05/20 11:50 FiO2 40% 03/05/20 11:50 Sodium 132.9 mmol/L (137-145) L 03/08/20 05:33 Potassium 4.5 mmol/L (3.6-5.0) 03/08/20 05:33 Chloride 90 mmol/L (98-107) L 03/08/20 05:33 Carbon Dioxide 43 mmol/L (22-30) H* 03/08/20 05:33 Anion Gap 3 (5-19) L 03/08/20 05:33 BUN 26 mg/dL (7-20) H 03/08/20 05:33 Creatinine 0.75 mg/dL (0.52-1.25) 03/08/20 05:33 Est GFR ( Amer) > 60 (>60) 03/08/20 05:33 Est GFR (MDRD) Non-Af > 60 (>60) 03/08/20 05:33 Glucose 88 mg/dL (75-110) 03/08/20 05:33 POC Glucose 99 mg/dL (70-110) 03/06/20 11:49 Hemoglobin A1c % 4.4 % (4.7-6.0) L 03/06/20 05:52 Calcium 8.6 mg/dL (8.4-10.2) 03/08/20 05:33 Magnesium 2.4 mg/dL (1.6-2.3) H 03/08/20 05:33 Total Bilirubin 0.7 mg/dL (0.2-1.3) 03/04/20 21:20 Direct Bilirubin 0.1 mg/dL (0.0-0.4) 03/04/20 21:20 Neonat Total Bilirubin Not Reportable 03/04/20 21:20 Neonat Direct Bilirubin Not Reportable 03/04/20 21:20 Neonat Indirect Bili Not Reportable 03/04/20 21:20 AST 25 U/L (14-36) 03/04/20 21:20 ALT 12 U/L (<35) 03/04/20 21:20 Alkaline Phosphatase 97 U/L (38-126) 03/04/20 21:20 Creatine Kinase 297 U/L (30-135) H 03/05/20 19:40 CK-MB (CK-2) 2.78 ng/mL (<4.55) 03/05/20 19:40 Troponin I < 0.012 ng/mL 03/05/20 19:40 NT-Pro-B Natriuret Pep 2110 pg/mL (<125) H 03/04/20 21:20 Total Protein 6.7 g/dL (6.3-8.2) 03/04/20 21:20 Albumin 3.8 g/dL (3.5-5.0) 03/04/20 21:20 Serum Alcohol < 10 mg/dL (NONE DETECTED) 03/04/20 21:20 SARS-CoV-2 (PCR) NEGATIVE (NEGATIVE) 03/05/20 12:45 03/04/20 03/05/20 03/05/20 21:20 07:34 13:10 CK-MB (CK-2) 0.82 0.66 Troponin I < 0.012 < 0.012 < 0.012 NT-Pro-B Natriuret Pep 0 H 03/05/20 19:40 CK-MB (CK-2) 2.78 Troponin I < 0.012 NT-Pro-B Natriuret Pep Impressions: Chest X-Ray 03/04/20 22:22 IMPRESSION: Progressive volume loss in the lower lobes bilaterally suggestive of atelectasis or pneumonia. Foot X-Ray 03/06/20 00:00 IMPRESSION: 1. The osseous detail on the right is limited due to half plaster cast which has been placed since the previous examination dated 02/23/2020. No change in the appearance of the subacute fractures involving the second through the fifth metatarsal heads and proximal phalanx of the fifth toe. 2. The left foot is stable in appearance. 3. Soft tissue swelling. Plan Plan of Treatment: Patient is discharged home in stable condition. She is instructed to follow-up with her primary care provider within 1 week. She is advised to take her medications as prescribed. Do not smoke. Return to the emergency department as needed for concerning symptoms. Time Spent: Greater than 30 Minutes Stroke Is this a Stroke Patient?: No Acute Heart Failure - Is this a Heart Failure Patient?: No
== END 2020-03-08 13:30 | disposition home or self-care (01) | DRG 189 ==
LOC: ER 21:17 → EH 03-05 03:53 → 3S 03-05 15:15
PROVIDERS: ADMIT Emergency Medicine; ATTEND Registered Nurse
PROC: 5A09457 Assistance with Respiratory Ventilation, 24-96 Consecutive Hours, Continuous Positive Airway Pressure (ICD-10-PCS; principal; 2020-03-05)
DX: J96.21 Acute and chronic respiratory failure with hypoxia (principal); J44.1 Chronic obstructive pulmonary disease with (acute) exacerbation; G93.40 Encephalopathy, unspecified; J96.22 Acute and chronic respiratory failure with hypercapnia; Z20.828 Contact with and (suspected) exposure to other viral communicable diseases; I48.0 Paroxysmal atrial fibrillation; R29.6 Repeated falls; E11.9 Type 2 diabetes mellitus without complications; E03.9 Hypothyroidism, unspecified; K21.9 Gastro-esophageal reflux disease without esophagitis; F31.9 Bipolar disorder, unspecified; E66.01 Morbid (severe) obesity due to excess calories; F17.210 Nicotine dependence, cigarettes, uncomplicated; I10 Essential (primary) hypertension; Z60.2 Problems related to living alone; S92.311D Displaced fracture of first metatarsal bone, right foot, subsequent encounter for fracture with routine healing; S92.321D Displaced fracture of second metatarsal bone, right foot, subsequent encounter for fracture with routine healing; S92.331D Displaced fracture of third metatarsal bone, right foot, subsequent encounter for fracture with routine healing; S92.341D Displaced fracture of fourth metatarsal bone, right foot, subsequent encounter for fracture with routine healing; S92.351D Displaced fracture of fifth metatarsal bone, right foot, subsequent encounter for fracture with routine healing; S92.911D Unspecified fracture of right toe(s), subsequent encounter for fracture with routine healing; Z79.01 Long term (current) use of anticoagulants; Z79.52 Long term (current) use of systemic steroids; Z79.899 Other long term (current) drug therapy; Z79.82 Long term (current) use of aspirin; Z86.718 Personal history of other venous thrombosis and embolism; Z88.3 Allergy status to other anti-infective agents; Z88.8 Allergy status to other drugs, medicaments and biological substances; Z91.048 Other nonmedicinal substance allergy status
CPT/HCPCS: 36415; 71045; 80048; 80053; 80307; 82550; 82553; 82803; 82962; 83036; 83735; 83880; 84484; 85025; 85027; 87040; 87635; 93005; 93010; 94640; 94660; 94667; 94799; 96374; 99291; 99292; C9803; J1644; J1815; J1956; J2920; J2930; J3490; J7512

== ENCOUNTER 2020-07-31 06:10 | Inpatient (IN) | payer MEDICAID ==
[2020-07-31 07:08] LABS: INTERNATIONAL RATION (INR) 1.07; PROTHROMBIN TIME 14.1 SEC (11.4-15.4)
[2020-07-31 07:10] LABS: ABSOLUTE LYMPHOCYTES (AUTO) 0.9 10^3/uL (0.5-4.7); ABSOLUTE MONOCYTES (AUTO) 0.4 10^3/uL (0.1-1.4); ABSOLUTE NEUT (AUTO) 5.2 10^3/uL (1.7-8.2); BASOPHILS % (AUTO) 0.5 % (0-2); EOSINOPHILS % (AUTO) 0.4 % (0-6); HEMATOCRIT 41.4 % (36.0-47.0); HEMOGLOBIN 13.2 g/dL (12.0-15.5); LYMPHOCYTES % (AUTO) 13.8 % (13-45); MEAN CORPUSCULAR HEMOGLOBIN 29.1 pg (27.0-33.4); MEAN CORPUSCULAR HGB CONC 31.9 g/dL (32.0-36.0); MEAN CORPUSCULAR VOLUME 91 fl (80-97); MONOCYTES % (AUTO) 6.2 % (3-13); PLATELET COUNT 209 10^3/uL (150-450); RED BLOOD COUNT 4.54 10^6/uL (3.72-5.28); RED CELL DISTRIBUTION WIDTH 14.9 % (11.5-14.0); SEGMENTED NEUTROPHILS % (AUTO) 79.1 % (42-78); TOTAL CELLS COUNTED % (AUTO) 100 %; WHITE BLOOD COUNT 6.6 10^3/uL (4.0-10.5)
[2020-07-31 07:16] LABS: ALBUMIN 3.8 g/dL (3.5-5.0); ALKALINE PHOSPHATASE 133 U/L (38-126); ASPARTATE AMINO TRANSFERASE 20 U/L (14-36); BILIRUBIN,DIRECT 0.2 mg/dL (0.0-0.4); BILIRUBIN,TOTAL 0.7 mg/dL (0.2-1.3); BLOOD UREA NITROGEN 24 mg/dL (7-20); CALCIUM 9.5 mg/dL (8.4-10.2); CHLORIDE 80 mmol/L (98-107); GLUCOSE 129 mg/dL (75-110); POTASSIUM 4.9 mmol/L (3.6-5.0)
[2020-07-31 07:20] LABS: APPEARANCE,URINE SLIGHTLY-CLOUDY; BILIRUBIN,URINE NEGATIVE (NEGATIVE); COLOR,URINE AMBER; GLUCOSE, URINE NEGATIVE (NEGATIVE); KETONES,URINE NEGATIVE (NEGATIVE); PROTEIN,URINE >=500 mg/dL (NEGATIVE); URINE SPECIFIC GRAVITY 1.025
[2020-07-31 07:28] LABS: ANION GAP 6 (5-19); NT PRO BNP 1640 pg/mL (<125)
[2020-07-31 07:30] LABS: CARBON DIOXIDE 53 mmol/L (22-30)
[2020-07-31 07:31] LABS: TROPONIN I < 0.012 ng/mL
--- NOTE | 2020-07-31 07:31 | EKG REPORT ---
SEVERITY:- NORMAL ECG - SINUS RHYTHM : Confirmed by: Ajit Castellon MD 31-Jul-2020 07:30:30
--- NOTE | 2020-07-31 07:38 | ER Document Report ---
ED General - General Chief Complaint: Shortness Of Breath Stated Complaint: RESPIRATORY DISTRESS Time Seen by Provider: 07/31/20 06:13 Mode of Arrival: Medic Information source: Patient, Emergency Med Personnel TRAVEL OUTSIDE OF THE [place] IN LAST 30 DAYS: No - HPI Notes: Patient is brought in by ambulance secondary to shortness of breath. Apparently EMS was called due to patient having trouble breathing. Patient is not a good historian. Apparently the shortness of breath has been going on for several days but was worse last evening. No known Covid exposures. No known fevers. She apparently has had a dry cough. The shortness of breath is apparently constant and moderate to severe. It is apparently worse with exertion and better with rest. Patient states that she wears 5 L of oxygen at home chronically as well as CPAP at night. She states she still uses cigarettes. Patient denies any pain. No vomiting or diarrhea. - Related Data Allergies/Adverse Reactions: levothyroxine sodium [From Synthroid] Allergy (Verified 02/23/20 04:24) methotrexate [Methotrexate] Allergy (Verified 02/23/20 04:24) yellow dye [Yellow Dye] Allergy (Verified 02/23/20 04:24) azithromycin [Azithromycin] Adverse Reaction (Verified 02/23/20 04:24) temazepam [From Restoril] Adverse Reaction (Verified 02/23/20 04:24) Past Medical History - General Information source: Patient, Emergency Med Personnel - Social History Smoking Status: Current Every Day Smoker Frequency of alcohol use: None Drug Abuse: None Family History: Reviewed & Not Pertinent, Arthritis, CAD, CVA, DM, Hyperlipidemia, Hypertension, Malignancy, Thyroid Disfunction - Past Medical History Cardiac Medical History: Reports: Hx Atrial Fibrillation, Hx Congestive Heart Failure, Hx Coronary Artery Disease, Hx DVT, Hx Hypertension Denies: Hx Heart Attack Pulmonary Medical History: Reports: Hx Asthma, Hx COPD, Hx Respiratory Failure Denies: Hx Bronchitis, Hx Pneumonia, Hx Tuberculosis Neurological Medical History: Reports: Hx Migraine. Denies: Hx Cerebrovascular Accident, Hx Seizures Endocrine Medical History: Reports: Hx Diabetes Mellitus Type 2, Hx Hypothyroidism. Denies: Hx Diabetes Mellitus Type 1, Hx Hyperthyroidism Renal/ Medical History: Denies: Hx Peritoneal Dialysis GI Medical History: Reports: Hx Gastroesophageal Reflux Disease. Denies: Hx Cirrhosis, Hx Crohn's Disease, Hx Hepatitis, Hx Ulcerative Colitis Musculoskeletal Medical History: Denies Hx Arthritis, Denies Hx Gout, Reports Hx Musculoskeletal Deformity - scoliosis, Reports Hx Musculoskeletal Trauma Skin Medical History: Reports Hx Cellulitis, Denies Hx Eczema, Denies Hx Psoriasis Psychiatric Medical History: Reports: Hx Anxiety, Hx Bipolar Disorder, Hx Depression, Hx Obsessive Compulsive Disorder Traumatic Medical History: Reports: Hx Fractures Infectious Medical History: Denies: Hx Hepatitis Past Surgical History: Reports: Hx Abdominal Surgery, Hx Section - x 2, Hx Cholecystectomy, Hx Oral Surgery, Hx Tubal Ligation. Denies: Hx Pacemaker - Immunizations Immunizations up to date: No Hx Diphtheria, Pertussis, Tetanus Vaccination: No Review of Systems - Review of Systems Constitutional: Malaise, Weakness Cardiovascular: Chest pain. denies: Palpitations Respiratory: Cough, Short of breath -: Yes All other systems reviewed and negative Physical Exam - Vital signs Vitals: Resp 16 07/31/20 06:12 Interpretation: Hypoxic - General General appearance: Alert In distress: Moderate - Respiratory - HEENT Head: Normocephalic, Atraumatic Eyes: Normal Pupils: PERRL - Respiratory Respiratory status: Respiratory distress - Moderate Chest status: Nontender, Accessory muscle use Breath sounds: Decreased air movement, Rhonchi Chest palpation: Normal - Cardiovascular Rhythm: Regular Heart sounds: Normal auscultation Murmur: No - Abdominal Inspection: Normal Distension: No distension Bowel sounds: Normal Tenderness: Tender - Mild diffuse tenderness Organomegaly: No organomegaly - Back Back: Normal, Nontender - Extremities General upper extremity: Normal inspection, Nontender, Normal color, Normal ROM, Normal temperature General lower extremity: Normal inspection, Nontender, Normal color, Normal ROM, Normal temperature - Neurological Cognition: Confused Orientation: Disoriented to time Andrew Coma Scale Eye Opening: Spontaneous [place] Coma Scale Verbal: Confused [place] Coma Scale Motor: Obeys Commands [place] Coma Scale Total: 14 Speech: Normal Motor strength normal: LUE, RUE, LLE, RLE Sensory: Normal - Psychological Associated symptoms: Normal affect, Normal mood - Skin Skin Temperature: Warm Skin Moisture: Dry Skin Color: Normal Course - Re-evaluation Re-evalutation: 07/31/20 07:37 Patient presents with severe shortness of breath. She was immediately placed on BiPAP with good response. No evidence of Covid at this time. No evidence of heart failure. Presentation appears most consistent with COPD exacerbation. Patient will be treated with BiPAP, supplemental oxygen, antibiotics, and steroids. 07/31/20 10:37 The patient was evaluated during a global COVID-19 pandemic and that diagnosis was suspected/considered upon their initial presentation. Their evaluation, t reatment and testing was consistent with current guidelines for patients who present with complaints or symptoms and may be related to COVID-19. - Vital Signs Vital signs: Temp Pulse Resp BP Pulse Ox 97.6 F 17 140/121 H 3 L 07/31/20 06:48 07/31/20 09:10 07/31/20 07:34 07/31/20 09:10 - Laboratory Result Diagrams: 07/31/20 06:16 07/31/20 06:16 Laboratory results interpreted by me: 07/31/20 07/31/20 07/31/20 06:16 06:16 06:16 MCHC 31.9 L RDW 14.9 H Seg Neutrophils % 79.1 H Chloride 80 L Carbon Dioxide 53 H* BUN 24 H Glucose 129 H Alkaline Phosphatase 133 H NT-Pro-B Natriuret Pep 1640 H Urine Protein Urine Urobilinogen 07/31/20 06:16 MCHC RDW Seg Neutrophils % Chloride Carbon Dioxide BUN Glucose Alkaline Phosphatase NT-Pro-B Natriuret Pep Urine Protein >=500 H Urine Urobilinogen 2.0 H - Diagnostic Test Radiology reviewed: Image reviewed, Reports reviewed - EKG Interpretation by Me EKG shows normal: Sinus rhythm Rate: Normal - 82 Rhythm: NSR [place]/QRS: No: Right axis deviation, Left axis deviation Discharge - Discharge Clinical Impression: COPD with acute exacerbation, Person under investigation for COVID-19 Condition: Serious Disposition: ADMITTED INPATIENT Admitting Provider: Amisha (Hospitalist) Unit Admitted: [facility]
--- NOTE | 2020-07-31 07:47 | RADIOLOGY REPORT (SQ) ---
EXAM DESCRIPTION: X-ray single view chest. CLINICAL HISTORY: 55 years Female, sob COMPARISON: 03/04/2020 TECHNIQUE: Single portable x-ray view of the chest performed on 07/31/2020 at 7:09 AM FINDINGS: The lungs are well expanded and are clear. There is minimal scarring in the right perihilar region. The mild atelectasis and/or fibrosis in the right inferior hemithorax. There is no evidence of a pneumothorax. The cardiac silhouette is normal in size and configuration. The mediastinal contours are normal. No acute osseous abnormality is identified. No focal soft tissue abnormalities are seen. Lines and tubes: None. IMPRESSION: 1. Suspect scarring and/or atelectasis in the right perihilar region and right inferior hemithorax. 2. Otherwise, unremarkable portable chest.
[2020-07-31] MEDS ORDERED: LEVOFLOXACIN 750 MG/D5W RTU 750 MG/150 ML RTUPB IV ONE (08:25)
--- NOTE | 2020-07-31 09:50 | RADIOLOGY REPORT (SQ) ---
EXAM DESCRIPTION: CT ABD/PELVIS WITH IV ONLY IMAGES COMPLETED DATE/TIME: 07/31/2020 9:38 am REASON FOR STUDY: diffuse pain/guarding COMPARISON: None. TECHNIQUE: CT scan of the abdomen and pelvis performed using helical scanning technique with dynamic intravenous contrast injection. No oral contrast. Images reviewed with lung, soft tissue, and bone windows. Reconstructed coronal and sagittal MPR images reviewed. Delayed images for evaluation of the urinary system also acquired. All images stored on PACS. All CT scanners at this facility use dose modulation, iterative reconstruction, and/or weight based d osing when appropriate to reduce radiation dose to as low as reasonably achievable (ALARA). [facility]: Dose Right [facility]: CareDose [facility]: Dose Right [facility]: Teradose 4D [facility]: Kitware CONTRAST TYPE AND DOSE: contrast/concentration: Isovue 350.00 mmol/ml; Total Contrast Delivered: 99. 0 ml; Total Saline Delivered: 32.1 ml RENAL FUNCTION: GFR > 60. RADIATION DOSE: CT Rad equipment meets quality standard of care and radiation dose reduction techniq ues were employed. CTDIvol: 18.3 - 20.6 mGy. DLP: 2000 mGy-cm.. LIMITATIONS: None. FINDINGS: LOWER CHEST: Cardiomegaly. LIVER: Normal size. No masses. No dilated ducts. SPLEEN: Normal size. No focal lesions. PANCREAS: No masses. No significant calcifications. No adjacent inflammation or peripancreatic fluid collections. Pancreatic duct not dilated. GALLBLADDER: Surgically absent. ADRENAL GLANDS: No significant masses or asymmetry. RIGHT KIDNEY AND URETER: No solid masses. No significant calcifications. No hydronephrosis or hyd roureter. LEFT KIDNEY AND URETER: Atrophic. No solid masses. No significant calcifications. No hydronephro sis or hydroureter. AORTA AND VESSELS: No aneurysm. No dissection. Renal arteries, SMA, celiac without stenosis. RETROPERITONEUM: No retroperitoneal adenopathy, hemorrhage or masses. BOWEL AND PERITONEAL CAVITY: No masses or inflammatory changes. No free fluid or peritoneal masses. APPENDIX: Not visualized. PELVIS: Nix catheter in the urinary bladder. ABDOMINAL WALL: No masses. No hernias. BONES: No significant or acute findings. OTHER: No other significant finding. IMPRESSION: No acute findings. TECHNICAL DOCUMENTATION: JOB ID: [id number] Quality ID # [id number]: Final reports with documentation of one or more dose reduction techniques (e.g., Au tomated exposure control, adjustment of the mA and/or kV according to patient size, use of iterative reconstruction technique) 2010 [employer]- All Rights Reserved Reading location - IP/workstation name: [email or web address]
[2020-07-31] MEDS ORDERED: METHYLPREDNISOLONE INJ 125 MG/2 ML SDV IV ONE (10:06)
[2020-07-31 11:03] LABS: VENOUS BLOOD BASE EXCESS 27.5 mmol/L; VENOUS BLOOD HCO3 61.7 mmol/L (20-32); VENOUS BLOOD PH 7.31 (7.30-7.42)
[2020-07-31 11:05] LABS: VENOUS BLOOD PCO2 125.9 mmHg (35-63)
[2020-07-31] MEDS ORDERED: ACETAMINOPHEN 325 MG TABLET PO PRN (12:21)
[2020-07-31] MEDS ORDERED: PROMETHAZINE HCL 25 MG SUPP.RECT PR PRN (12:21)
[2020-07-31] MEDS ORDERED: PROMETHAZINE HCL 25 MG TABLET PO PRN (12:21)
[2020-07-31] MEDS ORDERED: MAGNESIUM HYDROXIDE SUSP 30 ML UDCUP PO PRN (12:21)
[2020-07-31] MEDS ORDERED: IPRATROPIUM/ALBUTEROL 0.5-2.5 MG/3 ML AMPUL NEB SCH (14:00)
[2020-07-31] MEDS: IPRATROPIUM/ALBUTEROL 0.5-2.5 MG/3 ML AMPUL NEB SCH ×2 (14:35→20:56)
--- NOTE | 2020-07-31 17:14 | PDOC H&P ---
History of Present Illness Admission Date/PCP: 07/31/20 12:04 History of Present Illness: TRISTA ESTRELLA is a 55 year old female past medical history of CHF, tobacco abuse, oxygen dependent COPD, hypertension, paroxysmal atrial fibrillation, brought to ED by EMS for shortness of breath. Unfortunate patient is very poor historian, does not provide much history except for stating that she has been short of breath for the last several days however has not been exposed to anybody with COVID-19 infection, patient denies any fever, chest pain, nausea, vomiting, diarrhea, constipation or any urinary symptoms. Patient has history of oxygen dependent COPD and THANH and wears CPAP at night. Unfortunately still smokes. In ED he was noted to be hypoxic on room air. ABG was attempted s everal times unfortunately unsuccessful, but VBG shows PCO2 of 125, stat CT was negative for any acute findings. Past Medical History Cardiac Medical History: Reports: Atrial Fibrillation, Congestive Heart Failure, Coronary Artery Disease, DVT, Hypertension Denies: Myocardial Infarction Pulmonary Medical History: Reports: Asthma, Chronic Obstructive Pulmonary Disease (COPD), Respiratory Failure Denies: Bronchitis, Pneumonia, Tuberculosis Neurological Medical History: Reports: Migraine Denies: Seizures Endocrine Medical History: Reports: Diabetes Mellitus Type 2, Hypothyroidism Denies: Diabetes Mellitus Type 1, Hyperthyroidism GI Medical History: Reports: Gastroesophageal Reflux Disease Denies: Cirrhosis, Crohn's Disease, Hepatitis, Ulcerative Colitis Musculoskeltal Medical History: Denies: Arthritis, Gout Skin Medical History: Denies: Eczema, Psoriasis Psychiatric Medical History: Reports: Bipolar Disorder, Depression Hematology: Denies: Anemia, Bleeding Tendencies Past Surgical History Past Surgical History: Reports: Section - x 2, Cholecystectomy, Tubal Ligation Denies: Pacemaker Social History Smoking Status: Current Every Day Smoker Frequency of Alcohol Use: None Hx Recreational Drug Use: No Drugs: None Hx Prescription Drug Abuse: No Family History Family History: Reviewed & Not Pertinent, Arthritis, CAD, CVA, DM, Hyperlipidemia, Hypertension, Malignancy, Thyroid Disfunction Parental Family History Reviewed: Yes Children Family History Reviewed: Yes Sibling(s) Family History Reviewed.: Yes Medication/Allergy Home Medications: Albuterol Sulfate [Proair HFA Inhalation Aerosol 8.5 gm MDI] 2 puff IH Q4HP PRN 11/22/19 Glycopyrrolate/Formoterol Fum [Bevespi Aerosphere Inhaler] 2 puff IH BID 11/22/19 Sertraline HCl [Zoloft 50 mg Tablet] 50 mg PO DAILY 11/22/19 Apixaban [Eliquis 5 mg Tablet] 5 mg PO BID 30 Days #60 tablet 11/24/19 Aspirin [Adult Low Dose Aspirin EC] 81 mg PO DAILY 30 Days #30 tablet. 11/24/19 Furosemide [Lasix 40 mg Tablet] 40 mg PO DAILY 03/05/20 Ipratropium/Albuterol Sulfate [Duoneb 3 ml Ampul] 1 vial NEB RTQIDP PRN 03/05/20 Diltiazem HCl [Cardizem Cd] 300 mg PO DAILY 07/31/20 Allergies/Adverse Reactions: levothyroxine sodium [From Synthroid] Allergy (Verified 02/23/20 04:24) methotrexate [Methotrexate] Allergy (Verified 02/23/20 04:24) yellow dye [Yellow Dye] Allergy (Verified 02/23/20 04:24) azithromycin [Azithromycin] Adverse Reaction (Verified 02/23/20 04:24) temazepam [From Restoril] Adverse Reaction (Verified 02/23/20 04:24) Review of Systems Review of Systems: as per hpi Physical Exam Vital Signs: Temp Pulse Resp BP Pulse Ox 97.6 F 106 H 21 H 134/81 H 100 07/31/20 06:48 07/31/20 14:46 07/31/20 16:30 07/31/20 16:30 07/31/20 16:30 Intake & Output 07/30/20 07/31/20 08/01/20 06:59 06:59 06:59 Intake Total 150 Balance 150 Weight 93.2 kg General appearance: PRESENT: disheveled, morbidly obese, severe distress Head exam: PRESENT: atraumatic, normocephalic Respiratory exam: PRESENT: decreased breath sounds, prolonged expiratory phas, symmetrical, tachypnea. ABSENT: rales, rhonchi, wheezes Cardiovascular exam: PRESENT: RRR. ABSENT: diastolic murmur, rubs, systolic murmur GI/Abdominal exam: PRESENT: normal bowel sounds, soft. ABSENT: distended, guarding, mass, organolmegaly, rebound, tenderness Neurological exam: PRESENT: alert, awake, oriented to person, oriented to place, oriented to time, oriented to situation, CN II-XII grossly intact. ABSENT: motor sensory deficit Results Laboratory Results: 07/31/20 06:16 07/31/20 06:16 07/31/20 07/31/20 07/31/20 06:16 06:16 06:16 WBC 6.6 RBC 4.54 Hgb 13.2 Hct 41.4 MCV 91 MCH 29.1 MCHC 31.9 L RDW 14.9 H Plt Count 209 Seg Neutrophils % 79.1 H VBG pH VBG pCO2 VBG HCO3 VBG Base Excess Sodium 139.0 Potassium 4.9 Chloride 80 L Carbon Dioxide 53 H* Anion Gap 6 BUN 24 H Creatinine 0.55 Est GFR ( Amer) > 60 Glucose 129 H Lactic Acid Calcium 9.5 Total Bilirubin 0.7 AST 20 Alkaline Phosphatase 133 H Total Protein 7.0 Albumin 3.8 Urine Color VIVIAN Urine Appearance SLIGHTLY-CLOUDY Urine pH 6.0 Ur Specific [place] 1.025 Urine Protein >=500 H Urine Glucose (UA) NEGATIVE Urine Ketones NEGATIVE Urine Blood NEGATIVE Urine RBC (Auto) 3 07/31/20 07/31/20 07/31/20 10:42 10:42 14:42 WBC RBC Hgb Hct MCV MCH MCHC RDW Plt Count Seg Neutrophils % VBG pH 7.31 VBG pCO2 125.9 H* VBG HCO3 61.7 H VBG Base Excess 27.5 Sodium Potassium Chloride Carbon Dioxide Anion Gap BUN Creatinine Est GFR ( Amer) Glucose Lactic Acid 0.6 L 0.8 Calcium Total Bilirubin AST Alkaline Phosphatase Total Protein Albumin Urine Color Urine Appearance Urine pH Ur Specific [place] Urine Protein Urine Glucose (UA) Urine Ketones Urine Blood Urine RBC (Auto) 07/31/20 06:16 Troponin I < 0.012 NT-Pro-B Natriuret Pep 1640 H Impressions: Chest X-Ray 07/31/20 06:49 IMPRESSION: 1. Suspect scarring and/or atelectasis in the right perihilar region and right inferior hemithorax. 2. Otherwise, unremarkable portable chest. Abdomen/Pelvis CT 07/31/20 07:39 IMPRESSION: No acute findings. Assessment and Plan - Diagnosis (1) Acute respiratory failure with hypoxia and hypercapnia Is this a current diagnosis for this admission?: Yes Plan: Most likely due to acute COPD exacerbation in the setting of CHF and continued tobacco abuse. CTA negative for acute abnormalities. Denies any exposure to anybody with COVID-19 infection. Admit to ICU, IV steroids, LAMA, LABA, ICS, BiPAP, duo nebs, flutter valve, incentive spirometry, pulmonary toileting. (2) Acute congestive heart failure Qualifiers: Heart failure type: combined systolic and diastolic Qualified Code(s): I50.41 - Acute combined systolic (congestive) and diastolic (congestive) heart failure Is this a current diagnosis for this admission?: Yes Plan: Cardiac diet, fluid restriction, strict ins and outs, daily weight, beta- blockers, HE, diuretics. (3) Hypertension Qualifiers: Hypertension type: essential hypertension Is this a current diagnosis for this admission?: Yes Plan: Resume home meds. Adjust meds as needed. Outpatient PCP follow-up. (4) Paroxysmal atrial fibrillation Is this a current diagnosis for this admission?: Yes Plan: History of paroxysmal atrial fibrillation. Rate controlled. Anticoagulated. Resume home meds. Outpatient PCP and cardiology follow-up. (5) Tobacco use disorder, severe, dependence Is this a current diagnosis for this admission?: Yes Plan: Counseled on quitting. NicoDerm patch will be provided. (6) Acute exacerbation of chronic obstructive pulmonary disease Is this a current diagnosis for this admission?: Yes Plan: History of oxygen dependent COPD with THANH. Plan as per #1. (7) Obstructive sleep apnea Is this a current diagnosis for this admission?: Yes Plan: On home CPAP. Nocturnal CPAP. Weight loss recommended. - Time Time Spent with patient: 35 or more minutes Smoking Cessation Education: 3 to 10 minutes Medications reviewed and adjusted accordingly: Yes Anticipated Discharge Disposition: Home with Home Health Anticipated Discharge Timeframe: within 72 hours
[2020-07-31] MEDS ORDERED: DILTIAZEM HCL 300 MG PO SCH (17:15)
[2020-07-31] MEDS: APIXABAN 5 MG TABLET PO SCH (18:26)
[2020-07-31] MEDS: SERTRALINE HCL 50 MG TABLET PO SCH (18:26)
[2020-07-31] MEDS: FAMOTIDINE 20 MG TABLET PO SCH (21:09)
[2020-08-01 05:25] LABS: ABSOLUTE LYMPHOCYTES (AUTO) 0.7 10^3/uL (0.5-4.7); ABSOLUTE MONOCYTES (AUTO) 0.6 10^3/uL (0.1-1.4); ABSOLUTE NEUT (AUTO) 4.3 10^3/uL (1.7-8.2); BASOPHILS % (AUTO) 0.1 % (0-2); HEMATOCRIT 36.5 % (36.0-47.0); LYMPHOCYTES % (AUTO) 12.8 % (13-45); MEAN CORPUSCULAR HEMOGLOBIN 29.3 pg (27.0-33.4); MEAN CORPUSCULAR HGB CONC 32.8 g/dL (32.0-36.0); MEAN CORPUSCULAR VOLUME 89 fl (80-97); MONOCYTES % (AUTO) 10.5 % (3-13); PLATELET COUNT 230 10^3/uL (150-450); RED BLOOD COUNT 4.09 10^6/uL (3.72-5.28); RED CELL DISTRIBUTION WIDTH 14.8 % (11.5-14.0); SEGMENTED NEUTROPHILS % (AUTO) 76.6 % (42-78); TOTAL CELLS COUNTED % (AUTO) 100 %; WHITE BLOOD COUNT 5.6 10^3/uL (4.0-10.5)
[2020-08-01 05:50] LABS: ALBUMIN 3.4 g/dL (3.5-5.0); ALKALINE PHOSPHATASE 95 U/L (38-126); ASPARTATE AMINO TRANSFERASE 19 U/L (14-36); BILIRUBIN,DIRECT 0.2 mg/dL (0.0-0.4); BILIRUBIN,TOTAL 0.5 mg/dL (0.2-1.3); BLOOD UREA NITROGEN 25 mg/dL (7-20); CALCIUM 9.5 mg/dL (8.4-10.2); GLUCOSE 109 mg/dL (75-110); POTASSIUM 4.7 mmol/L (3.6-5.0); TOTAL PROTEIN 6.2 g/dL (6.3-8.2)
[2020-08-01 06:07] LABS: CHLORIDE 80 mmol/L (98-107)
[2020-08-01 06:16] LABS: ANION GAP 3 (5-19); CARBON DIOXIDE 51 mmol/L (22-30)
[2020-08-01] MEDS ORDERED: INFLUENZA QUAD (6MOS+) 2020-21 VAC 0.5 ML SYR IM ONE (08:00)
[2020-08-01] MEDS: IPRATROPIUM/ALBUTEROL 0.5-2.5 MG/3 ML AMPUL NEB SCH ×3 (09:01→19:47)
[2020-08-01] MEDS: ASPIRIN 81 MG TABLET, ENT COATED PO SCH (09:09)
[2020-08-01] MEDS: DILTIAZEM HCL 180 MG CAPSULE.CR PO SCH (09:09)
[2020-08-01] MEDS: LEVOFLOXACIN 500 MG TABLET PO SCH (09:09)
[2020-08-01] MEDS: SERTRALINE HCL 50 MG TABLET PO SCH (09:10)
[2020-08-01] MEDS: APIXABAN 5 MG TABLET PO SCH ×2 (09:10→17:09)
[2020-08-01] MEDS: FAMOTIDINE 20 MG TABLET PO SCH ×2 (09:10→21:53)
[2020-08-01] MEDS: FLUTICASONE/UMECLIDIN/VILANTER 100-62.5-25 MCG/DOSE IH SCH (09:13)
[2020-08-01] MEDS: DILTIAZEM HCL 120 MG CAP.SR.24H PO SCH (09:14)
[2020-08-01] MEDS ORDERED: ENOXAPARIN SODIUM INJ 40 MG/0.4 ML DISP.SYRIN SUBCUT SCH (10:00)
--- NOTE | 2020-08-01 17:47 | PDOC PROGRESS REPORT ---
Subjective Date:: 08/01/20 Subjective:: TRISTA ESTRELLA is a 55 year old female past medical history of CHF, tobacco abuse, oxygen dependent COPD, hypertension, paroxysmal atrial fibrillation, brought to ED by EMS for shortness of breath. Unfortunate patient is very poor historian, does not provide much history except for stating that she has been short of breath for the last several days however has not been exposed to anybody with COVID-19 infection, patient denies any fever, chest pain, nausea, vomiting, diarrhea, constipation or any urinary symptoms. Patient has history of oxygen dependent COPD and THANH and wears CPAP at night. Unfortunately still smokes. In ED he was noted to be hypoxic on room air. ABG was attempted several times unfortunately unsuccessful, but VBG shows PCO2 of 125, stat CT was negative for any acute findings. 08/01/2020. No acute events overnight. Patient has tested negative for COVID- 19. Reporting much improvement of her shortness of breath, denying any fever, chills, chest pain, nausea, vomiting. Reason For Visit: ACUTE RESPIRATORY FAILURE WITH HYPOXIA,ACUTE COPD Physical Exam Vital Signs: Temp Pulse Resp BP Pulse Ox 98.5 F 100 20 100/50 L 97 08/01/20 15:22 08/01/20 15:22 08/01/20 15:22 08/01/20 15:22 08/01/20 15:22 Intake & Output 07/31/20 08/01/20 08/02/20 06:59 06:59 06:59 Intake Total 630 906 Output Total 300 200 Balance 330 706 Weight 93.2 kg 93.6 kg General appearance: PRESENT: obese Head exam: PRESENT: atraumatic, normocephalic Neck exam: ABSENT: carotid bruit, JVD, lymphadenopathy, thyromegaly Respiratory exam: PRESENT: clear to auscultation emerson, symmetrical, wheezes, other - Diminished air entry bilaterally.. ABSENT: rales, rhonchi Cardiovascular exam: PRESENT: RRR. ABSENT: diastolic murmur, rubs, systolic murmur GI/Abdominal exam: PRESENT: normal bowel sounds, soft. ABSENT: distended, guarding, mass, organolmegaly, rebound, tenderness Neurological exam: PRESENT: alert, awake, oriented to person, oriented to place, CN II-XII grossly intact. ABSENT: motor sensory deficit Results Laboratory Results: 08/01/20 04:22 08/01/20 04:22 08/01/20 08/01/20 08/01/20 00:20 04:22 04:22 WBC 5.6 RBC 4.09 Hgb 12.0 Hct 36.5 MCV 89 MCH 29.3 MCHC 32.8 RDW 14.8 H Plt Count 230 Seg Neutrophils % 76.6 Sodium 134.4 L Potassium 4.7 Chloride 80 L Carbon Dioxide 51 H* Anion Gap 3 L BUN 25 H Creatinine 0.70 Est GFR ( Amer) > 60 Glucose 109 Lactic Acid 1.8 Calcium 9.5 Magnesium 2.1 Total Bilirubin 0.5 AST 19 Alkaline Phosphatase 95 Total Protein 6.2 L Albumin 3.4 L 07/31/20 06:16 Troponin I < 0.012 NT-Pro-B Natriuret Pep 1640 H Impressions: Chest X-Ray 07/31/20 06:49 IMPRESSION: 1. Suspect scarring and/or atelectasis in the right perihilar region and right inferior hemithorax. 2. Otherwise, unremarkable portable chest. Abdomen/Pelvis CT 07/31/20 07:39 IMPRESSION: No acute findings. Assessment and Plan - Diagnosis (1) Acute respiratory failure with hypoxia and hypercapnia Is this a current diagnosis for this admission?: Yes Plan: Improving. SPO2 WNL on 5 L BiPAP. Most likely due to acute COPD exacerbation in the setting of CHF and continued tobacco abuse. CTA negative for acute abnormalities. Denies any exposure to anybody with COVID-19 infection. Continue IV steroids, LAMA, LABA, ICS, BiPAP, duo nebs, flutter valve, incentive spirometry, pulmonary toileting. (2) Acute congestive heart failure Qualifiers: Heart failure type: combined systolic and diastolic Qualified Code(s): I50.41 - Acute combined systolic (congestive) and diastolic (congestive) heart failure Is this a current diagnosis for this admission?: Yes Plan: Cardiac diet, fluid restriction, strict ins and outs, daily weight, beta- blockers, HE, diuretics. (3) Hypertension Qualifiers: Hypertension type: essential hypertension Is this a current diagnosis for this admission?: Yes Plan: Resume home meds. Adjust meds as needed. Outpatient PCP follow-up. (4) Paroxysmal atrial fibrillation Is this a current diagnosis for this admission?: Yes Plan: History of paroxysmal atrial fibrillation. Rate controlled. Anticoagulated. Resume home meds. Outpatient PCP and cardiology follow-up. (5) Tobacco use disorder, severe, dependence Is this a current diagnosis for this admission?: Yes Plan: Counseled on quitting. NicoDerm patch will be provided. (6) Acute exacerbation of chronic obstructive pulmonary disease Is this a current diagnosis for this admission?: Yes Plan: History of oxygen dependent COPD with THAHN. Plan as per #1. (7) Obstructive sleep apnea Is this a current diagnosis for this admission?: Yes Plan: On home CPAP. Nocturnal CPAP. Weight loss recommended. (8) Obesity Qualifiers: Body mass index: BMI 35.0-35.9 Is this a current diagnosis for this admission?: Yes Plan: BMI 36.6. Diet and lifestyle modification recommended. - Time Time Spent with patient: 25-34 minutes Anticipated Discharge Disposition: Home with Home Health Anticipated Discharge Timeframe: within 48 hours
[2020-08-02 06:59] LABS: VENOUS BLOOD BASE EXCESS 17.9 mmol/L; VENOUS BLOOD HCO3 48.2 mmol/L (20-32); VENOUS BLOOD PH 7.36 (7.30-7.42)
[2020-08-02 07:00] LABS: ABSOLUTE BASOPHILS # (AUTO) 0.1 10^3/uL (0.0-0.2); ABSOLUTE LYMPHOCYTES (AUTO) 1.5 10^3/uL (0.5-4.7); ABSOLUTE MONOCYTES (AUTO) 0.8 10^3/uL (0.1-1.4); ABSOLUTE NEUT (AUTO) 4.9 10^3/uL (1.7-8.2); BASOPHILS % (AUTO) 0.7 % (0-2); EOSINOPHILS % (AUTO) 0.4 % (0-6); HEMATOCRIT 36.1 % (36.0-47.0); HEMOGLOBIN 11.6 g/dL (12.0-15.5); LYMPHOCYTES % (AUTO) 20.1 % (13-45); MEAN CORPUSCULAR HEMOGLOBIN 28.6 pg (27.0-33.4); MEAN CORPUSCULAR HGB CONC 32.1 g/dL (32.0-36.0); MEAN CORPUSCULAR VOLUME 89 fl (80-97); MONOCYTES % (AUTO) 11.5 % (3-13); PLATELET COUNT 228 10^3/uL (150-450); RED BLOOD COUNT 4.05 10^6/uL (3.72-5.28); SEGMENTED NEUTROPHILS % (AUTO) 67.3 % (42-78); TOTAL CELLS COUNTED % (AUTO) 100 %; WHITE BLOOD COUNT 7.3 10^3/uL (4.0-10.5)
[2020-08-02 07:01] LABS: VENOUS BLOOD PCO2 87.2 mmHg (35-63)
[2020-08-02 07:29] LABS: ALKALINE PHOSPHATASE 88 U/L (38-126); ASPARTATE AMINO TRANSFERASE 15 U/L (14-36); BILIRUBIN,DIRECT 0.1 mg/dL (0.0-0.4); BILIRUBIN,TOTAL 0.4 mg/dL (0.2-1.3); BLOOD UREA NITROGEN 22 mg/dL (7-20); CALCIUM 9.1 mg/dL (8.4-10.2); CHLORIDE 83 mmol/L (98-107); GLUCOSE 83 mg/dL (75-110); POTASSIUM 4.3 mmol/L (3.6-5.0); TOTAL PROTEIN 5.6 g/dL (6.3-8.2)
[2020-08-02 07:44] LABS: CARBON DIOXIDE 48 mmol/L (22-30)
[2020-08-02 07:46] LABS: ANION GAP 3 (5-19)
[2020-08-02] MEDS: IPRATROPIUM/ALBUTEROL 0.5-2.5 MG/3 ML AMPUL NEB SCH ×3 (07:55→19:50)
[2020-08-02] MEDS: DILTIAZEM HCL 120 MG CAP.SR.24H PO SCH (09:47)
[2020-08-02] MEDS: LEVOFLOXACIN 500 MG TABLET PO SCH (09:47)
[2020-08-02] MEDS: SERTRALINE HCL 50 MG TABLET PO SCH (09:47)
[2020-08-02] MEDS: ASPIRIN 81 MG TABLET, ENT COATED PO SCH (09:47)
[2020-08-02] MEDS: DILTIAZEM HCL 180 MG CAPSULE.CR PO SCH (09:47)
[2020-08-02] MEDS: FAMOTIDINE 20 MG TABLET PO SCH ×2 (09:47→22:14)
[2020-08-02] MEDS: APIXABAN 5 MG TABLET PO SCH ×2 (09:47→17:11)
--- NOTE | 2020-08-02 10:12 | PDOC PROGRESS REPORT ---
Subjective Date:: 08/02/20 Subjective:: TRISTA ESTRELLA is a 55 year old female past medical history of CHF, tobacco abuse, oxygen dependent COPD, hypertension, paroxysmal atrial fibrillation, brought to ED by EMS for shortness of breath. Unfortunate patient is very poor historian, does not provide much history except for stating that she has been short of breath for the last several days however has not been exposed to anybody with COVID-19 infection, patient denies any fever, chest pain, nausea, vomiting, diarrhea, constipation or any urinary symptoms. Patient has history of oxygen dependent COPD and THANH and wears CPAP at night. Unfortunately still smokes. In ED he was noted to be hypoxic on room air. ABG was attempted several times unfortunately unsuccessful, but VBG shows PCO2 of 125, stat CT was negative for any acute findings. 08/01/2020. No acute events overnight. Patient has tested negative for COVID- 19. Reporting much improvement of her shortness of breath, denying any fever, chills, chest pain, nausea, vomiting. 08/02/2020. No acute events overnight. Patient reporting moderate improvement of her shortness of breath and lethargy, hypercarbia improving, patient denies any fever, chills, nausea, vomiting. Reason For Visit: ACUTE RESPIRATORY FAILURE WITH HYPOXIA,ACUTE COPD Physical Exam Vital Signs: Temp Pulse Resp BP Pulse Ox 98.3 F 97 18 133/71 H 94 08/02/20 08:34 08/02/20 07:31 08/02/20 07:31 08/02/20 07:31 08/02/20 07:31 Intake & Output 08/01/20 08/02/20 08/03/20 06:59 06:59 06:59 Intake Total 630 1466 Output Total 300 1150 Balance 330 316 Weight 93.6 kg 95.4 kg General appearance: PRESENT: no acute distress, obese, well-developed, well- nourished Head exam: PRESENT: atraumatic, normocephalic Respiratory exam: PRESENT: decreased breath sounds, wheezes. ABSENT: rales, rhonchi Cardiovascular exam: PRESENT: RRR. ABSENT: diastolic murmur, rubs, systolic murmur GI/Abdominal exam: PRESENT: normal bowel sounds, soft. ABSENT: distended, guarding, mass, organolmegaly, rebound, tenderness Neurological exam: PRESENT: alert, awake, oriented to person, oriented to place, oriented to time, oriented to situation, CN II-XII grossly intact. ABSENT: motor sensory deficit Results Laboratory Results: 08/02/20 05:53 08/02/20 05:53 08/02/20 08/02/20 08/02/20 05:53 05:53 05:53 WBC 7.3 RBC 4.05 Hgb 11.6 L Hct 36.1 MCV 89 MCH 28.6 MCHC 32.1 RDW 15.0 H Plt Count 228 Seg Neutrophils % 67.3 VBG pH 7.36 VBG pCO2 87.2 H* VBG HCO3 48.2 H VBG Base Excess 17.9 Sodium 133.8 L Potassium 4.3 Chloride 83 L Carbon Dioxide 48 H* Anion Gap 3 L BUN 22 H Creatinine 0.56 Est GFR ( Amer) > 60 Glucose 83 Calcium 9.1 Total Bilirubin 0.4 AST 15 Alkaline Phosphatase 88 Total Protein 5.6 L Albumin 3.0 L 07/31/20 06:16 Troponin I < 0.012 NT-Pro-B Natriuret Pep 1640 H Impressions: Chest X-Ray 07/31/20 06:49 IMPRESSION: 1. Suspect scarring and/or atelectasis in the right perihilar region and right inferior hemithorax. 2. Otherwise, unremarkable portable chest. Abdomen/Pelvis CT 07/31/20 07:39 IMPRESSION: No acute findings. Assessment and Plan - Diagnosis (1) Acute respiratory failure with hypoxia and hypercapnia Is this a current diagnosis for this admission?: Yes Plan: Persistent hypercarbia moderate improvement since admission. SPO2 WNL on 2 L nasal cannula which is her baseline Most likely due to acute COPD exacerbation in the setting of CHF and continued tobacco abuse. CTA negative for acute abnormalities. Denies any exposure to anybody with COVID-19 infection. COVID-19 negative. Continue IV steroids, LAMA, LABA, ICS, BiPAP, duo nebs, flutter valve, incentive spirometry, pulmonary toileting. (2) Acute congestive heart failure Qualifiers: Heart failure type: combined systolic and diastolic Qualified Code(s): I50.41 - Acute combined systolic (congestive) and diastolic (congestive) heart failure Is this a current diagnosis for this admission?: Yes Plan: Denies any history of CAD. Denies any anginal symptoms. History of CHF likely due to pulmonary hypertension and chronic atrial fibrillation. 2D echo 11/23/2019. LVEF 65 to 70%. Suboptimal echo due to body habitus. Continue cardiac diet, strict ins and outs, daily weight, diuretics. (3) Hypertension Qualifiers: Hypertension type: essential hypertension Qualified Code(s): I10 - Essential (primary) hypertension Is this a current diagnosis for this admission?: Yes Plan: Resume home meds. Adjust meds as needed. Outpatient PCP follow-up. (4) Paroxysmal atrial fibrillation Is this a current diagnosis for this admission?: Yes Plan: History of paroxysmal atrial fibrillation. Rate controlled. Anticoagulated. Resume home meds. Outpatient PCP and cardiology follow-up. (5) Tobacco use disorder, severe, dependence Is this a current diagnosis for this admission?: Yes Plan: Counseled on quitting. NicoDerm patch will be provided. (6) Acute exacerbation of chronic obstructive pulmonary disease Is this a current diagnosis for this admission?: Yes Plan: History of oxygen dependent COPD with THANH. Plan as per #1. (7) Obstructive sleep apnea Is this a current diagnosis for this admission?: Yes Plan: On home CPAP. Nocturnal CPAP. Weight loss recommended. (8) Obesity Qualifiers: Body mass index: BMI 35.0-35.9 Is this a current diagnosis for this admission?: Yes Plan: BMI 36.6. Diet and lifestyle modification recommended. - Time Time Spent with patient: 25-34 minutes Anticipated Discharge Disposition: Home with Home Health Anticipated Discharge Timeframe: within 48 hours
[2020-08-02] MEDS: FLUTICASONE/UMECLIDIN/VILANTER 100-62.5-25 MCG/DOSE IH SCH (11:00)
[2020-08-03] MEDS: IPRATROPIUM/ALBUTEROL 0.5-2.5 MG/3 ML AMPUL NEB SCH ×3 (08:18→21:12)
[2020-08-03 09:10] LABS: VENOUS BLOOD BASE EXCESS 15.3 mmol/L; VENOUS BLOOD HCO3 45.5 mmol/L (20-32); VENOUS BLOOD PH 7.32 (7.30-7.42)
[2020-08-03 09:20] LABS: VENOUS BLOOD PCO2 89.9 mmHg (35-63)
[2020-08-03] MEDS: DILTIAZEM HCL 180 MG CAPSULE.CR PO SCH (10:04)
[2020-08-03] MEDS: LEVOFLOXACIN 500 MG TABLET PO SCH (10:04)
[2020-08-03] MEDS: DILTIAZEM HCL 120 MG CAP.SR.24H PO SCH (10:04)
[2020-08-03] MEDS: SERTRALINE HCL 50 MG TABLET PO SCH (10:05)
[2020-08-03] MEDS: ASPIRIN 81 MG TABLET, ENT COATED PO SCH (10:05)
[2020-08-03] MEDS: APIXABAN 5 MG TABLET PO SCH ×2 (10:05→17:27)
[2020-08-03] MEDS: FAMOTIDINE 20 MG TABLET PO SCH ×2 (10:05→22:06)
[2020-08-03] MEDS: FLUTICASONE/UMECLIDIN/VILANTER 100-62.5-25 MCG/DOSE IH SCH (10:09)
--- NOTE | 2020-08-03 12:43 | PDOC PROGRESS REPORT ---
Subjective Date:: 08/03/20 Subjective:: TRISTA ESTRELLA is a 55 year old female past medical history of CHF, tobacco abuse, oxygen dependent COPD, hypertension, paroxysmal atrial fibrillation, brought to ED by EMS for shortness of breath. Unfortunate patient is very poor historian, does not provide much history except for stating that she has been short of breath for the last several days however has not been exposed to anybody with COVID-19 infection, patient denies any fever, chest pain, nausea, vomiting, diarrhea, constipation or any urinary symptoms. Patient has history of oxygen dependent COPD and THANH and wears CPAP at night. Unfortunately still smokes. In ED he was noted to be hypoxic on room air. ABG was attempted several times unfortunately unsuccessful, but VBG shows PCO2 of 125, stat CT was negative for any acute findings. 08/01/2020. No acute events overnight. Patient has tested negative for COVID- 19. Reporting much improvement of her shortness of breath, denying any fever, chills, chest pain, nausea, vomiting. 08/02/2020. No acute events overnight. Patient reporting moderate improvement of her shortness of breath and lethargy, hypercarbia improving, patient denies any fever, chills, nausea, vomiting. 08/03/2020. No acute events overnight. No significant changes of hypercarbia, SPO2 WNL on 3 L cannula, alert and oriented no apparent distress, unfortunately patient is not very motivated to get out of the bed or use her incentive spirometer, denies any fever, chills, nausea, vomiting. P.o. tolerant. Reason For Visit: ACUTE RESPIRATORY FAILURE WITH HYPOXIA,ACUTE COPD Physical Exam Vital Signs: Temp Pulse Resp BP Pulse Ox 98.1 F 88 16 143/91 H 88 L 08/03/20 10:00 08/03/20 08:26 08/03/20 08:26 08/03/20 08:09 08/03/20 08:26 Intake & Output 08/02/20 08/03/20 08/04/20 06:59 06:59 06:59 Intake Total 1466 1040 Output Total 1150 1800 Balance 316 -760 Weight 95.4 kg 98.1 kg General appearance: PRESENT: no acute distress, obese, well-developed, well- nourished Head exam: PRESENT: atraumatic, normocephalic Respiratory exam: PRESENT: clear to auscultation emerson, other - Diminished air entry bilaterally. ABSENT: rales, rhonchi, wheezes Cardiovascular exam: PRESENT: RRR. ABSENT: diastolic murmur, rubs, systolic murmur GI/Abdominal exam: PRESENT: normal bowel sounds, soft. ABSENT: distended, guarding, mass, organolmegaly, rebound, tenderness Neurological exam: PRESENT: alert, awake, oriented to person, oriented to place, oriented to time, oriented to situation, CN II-XII grossly intact. ABSENT: motor sensory deficit Results Laboratory Results: 08/02/20 05:53 08/02/20 05:53 08/03/20 08:58 VBG pH 7.32 VBG pCO2 89.9 H* VBG HCO3 45.5 H VBG Base Excess 15.3 07/31/20 06:16 Troponin I < 0.012 NT-Pro-B Natriuret Pep 1640 H Impressions: Chest X-Ray 07/31/20 06:49 IMPRESSION: 1. Suspect scarring and/or atelectasis in the right perihilar region and right inferior hemithorax. 2. Otherwise, unremarkable portable chest. Abdomen/Pelvis CT 07/31/20 07:39 IMPRESSION: No acute findings. Assessment and Plan - Diagnosis (1) Acute respiratory failure with hypoxia and hypercapnia Is this a current diagnosis for this admission?: Yes Plan: Persistent hypercarbia moderate improvement since admission. SPO2 WNL on 2 L nasal cannula which is her baseline Most likely due to acute COPD exacerbation in the setting of CHF and continued tobacco abuse. CTA negative for acute abnormalities. Denies any exposure to anybody with COVID-19 infection. COVID-19 negative. Continue IV steroids, LAMA, LABA, ICS, BiPAP, duo nebs, flutter valve, incentive spirometry, pulmonary toileting. Encourage ambulation and use of incentive spirometry. Patient will greatly benefit from outpatient follow-up with pulmonology and nocturnal polysomnography and CPAP at home. (2) Acute congestive heart failure Qualifiers: Heart failure type: combined systolic and diastolic Qualified Code(s): I50.41 - Acute combined systolic (congestive) and diastolic (congestive) heart failure Is this a current diagnosis for this admission?: Yes Plan: Denies any history of CAD. Denies any anginal symptoms. History of CHF likely due to pulmonary hypertension and chronic atrial fibrillation. 2D echo 11/23/2019. LVEF 65 to 70%. Suboptimal echo due to body habitus. Continue cardiac diet, strict ins and outs, daily weight, diuretics. (3) Hypertension Qualifiers: Hypertension type: essential hypertension Qualified Code(s): I10 - Essential (primary) hypertension Is this a current diagnosis for this admission?: Yes Plan: Resume home meds. Adjust meds as needed. Outpatient PCP follow-up. (4) Paroxysmal atrial fibrillation Is this a current diagnosis for this admission?: Yes Plan: History of paroxysmal atrial fibrillation. Rate controlled. Anticoagulated. Resume home meds. Outpatient PCP and cardiology follow-up. (5) Tobacco use disorder, severe, dependence Is this a current diagnosis for this admission?: Yes Plan: Counseled on quitting. NicoDerm patch will be provided. (6) Acute exacerbation of chronic obstructive pulmonary disease Is this a current diagnosis for this admission?: Yes Plan: History of oxygen dependent COPD with THANH. Plan as per #1. (7) Obstructive sleep apnea Is this a current diagnosis for this admission?: Yes Plan: On home CPAP. Nocturnal CPAP. Weight loss recommended. (8) Obesity Qualifiers: Body mass index: BMI 35.0-35.9 Is this a current diagnosis for this admission?: Yes Plan: BMI 36.6. Diet and lifestyle modification recommended. - Time Time Spent with patient: 25-34 minutes Medications reviewed and adjusted accordingly: Yes Anticipated Discharge Disposition: Home with Home Health Anticipated Discharge Timeframe: within 24 hours
--- NOTE | 2020-08-03 21:57 | CDI QUERY ---
<JD CHANG - Last Filed: 08/03/20 21:56> CDI Query CDI Review: We are seeking further clarification of documentation to reflect the severity of illness of your patient. Per H&P: Paroxysmal atrial fibrillation Is this a current diagnosis for this admission?: Yes Plan: History of paroxysmal atrial fibrillation. Rate controlled. Anticoagulated. Resume home meds. Outpatient PCP and cardiology follow-up. Based on your medical judgement, can you further clarify in the Progress Notes (and carry through to the Discharge Summary) if the Atrial Fibrillation can be further specified: Persistent Atrial fibrillation Chronic (Permanent) (Longstanding) Atrial fibrillation Other Unable to determine Thank you for your consideration. BARRIE Al RN Clinical [employer] Supervisor Physician Advisor <AASHISH HERNNADEZ R - Last Filed: 08/04/20 15:07> CDI Query Agree with Query: No
[2020-08-04 05:10] LABS: VENOUS BLOOD BASE EXCESS 5.3 mmol/L; VENOUS BLOOD HCO3 32.4 mmol/L (20-32); VENOUS BLOOD PCO2 59.1 mmHg (35-63); VENOUS BLOOD PH 7.36 (7.30-7.42)
[2020-08-04 08:40] LABS: BLOOD UREA NITROGEN 23 mg/dL (7-20); CALCIUM 8.8 mg/dL (8.4-10.2); CHLORIDE 94 mmol/L (98-107); GLUCOSE 79 mg/dL (75-110); POTASSIUM 4.7 mmol/L (3.6-5.0)
[2020-08-04] MEDS: IPRATROPIUM/ALBUTEROL 0.5-2.5 MG/3 ML AMPUL NEB SCH (08:44)
[2020-08-04 09:15] LABS: ANION GAP 3 (5-19); CARBON DIOXIDE 35 mmol/L (22-30)
[2020-08-04 10:00] VITALS: BP 131/67
[2020-08-04] MEDS: DILTIAZEM HCL 180 MG CAPSULE.CR PO SCH (10:37)
[2020-08-04] MEDS: DILTIAZEM HCL 120 MG CAP.SR.24H PO SCH (10:37)
[2020-08-04] MEDS: APIXABAN 5 MG TABLET PO SCH (10:37)
[2020-08-04] MEDS: FLUTICASONE/UMECLIDIN/VILANTER 100-62.5-25 MCG/DOSE IH SCH (10:38)
[2020-08-04] MEDS: ASPIRIN 81 MG TABLET, ENT COATED PO SCH (10:38)
[2020-08-04] MEDS: LEVOFLOXACIN 500 MG TABLET PO SCH (10:38)
[2020-08-04] MEDS: FAMOTIDINE 20 MG TABLET PO SCH (10:38)
[2020-08-04] MEDS: SERTRALINE HCL 50 MG TABLET PO SCH (10:38)
--- NOTE | 2020-08-04 15:06 | PDOC DISCHARGE SUMMARY ---
Impression - Admit/DC Date/PCP Admission Date/Primary Care Provider: 08/02/20 09:13 Discharge Date: 08/04/20 - Discharge Diagnosis (1) Acute respiratory failure with hypoxia and hypercapnia Is this a current diagnosis for this admission?: Yes (2) Acute congestive heart failure Is this a current diagnosis for this admission?: Yes (3) Hypertension Is this a current diagnosis for this admission?: Yes (4) Tobacco use disorder, severe, dependence Is this a current diagnosis for this admission?: Yes (5) Acute exacerbation of chronic obstructive pulmonary disease Is this a current diagnosis for this admission?: Yes (6) Obstructive sleep apnea Is this a current diagnosis for this admission?: Yes (7) Obesity Is this a current diagnosis for this admission?: Yes (8) Chronic atrial fibrillation Is this a current diagnosis for this admission?: Yes - Additional Information Discharge Diet: Cardiac Discharge Activity: Activity As Tolerated Referrals: ISABELLE ABREU [Other] (NEEDS REFERRAL FOR [facility] SPECIALIST TO COMPLETE SLEEP STUDY.) Prescriptions: Levofloxacin [Levaquin 500 mg Tablet] 500 mg PO DAILY 2 Days #2 tablet Fluticasone/Umeclidin/Vilanter [Trelegy 100-62.5-25 Mcg Ellipta 14 Dose/Dpi] 14 inh IH DAILY 30 Days #1 inhaler Home Medications: Glycopyrrolate/Formoterol Fum [Bevespi Aerosphere Inhaler] 2 puff IH BID 11/22/19 Sertraline HCl [Zoloft 50 mg Tablet] 50 mg PO DAILY 11/22/19 Apixaban [Eliquis 5 mg Tablet] 5 mg PO BID 30 Days #60 tablet 11/24/19 Aspirin [Adult Low Dose Aspirin EC] 81 mg PO DAILY 30 Days #30 tablet. 11/24/19 Furosemide [Lasix 40 mg Tablet] 40 mg PO DAILY 03/05/20 Ipratropium/Albuterol Sulfate [Duoneb 3 ml Ampul] 1 vial NEB RTQIDP PRN 03/05/20 Diltiazem HCl [Cardizem Cd] 300 mg PO DAILY 07/31/20 Fluticasone/Umeclidin/Vilanter [Trelegy 100-62.5-25 Mcg Ellipta 14 Dose/Dpi] 14 inh IH DAILY 30 Days #1 inhaler 08/04/20 Levofloxacin [Levaquin 500 mg Tablet] 500 mg PO DAILY 2 Days #2 tablet 08/04/20 History of Present Illiness History of Present Illness: TRISTA ESTRELLA is a 55 year old female past medical history of CHF, tobacco abuse, oxygen dependent COPD, hypertension, paroxysmal atrial fibrillation, brought to ED by EMS for shortness of breath. Unfortunate patient is very poor historian, does not provide much history except for stating that she has been short of breath for the last several days however has not been exposed to anybody with COVID-19 infection, patient denies any fever, chest pain, nausea, vomiting, diarrhea, constipation or any urinary symptoms. Patient has history of oxygen dependent COPD and THANH and wears CPAP at night. Unfortunately still smokes. In ED he was noted to be hypoxic on room air. ABG was attempted several times unfortunately unsuccessful, but VBG shows PCO2 of 125, stat CT was negative for any acute findings. Hospital Course Hospital Course: (1) Acute respiratory failure with hypoxia and hypercapnia Moderate improvement. SPO2 WNL on 2 L nasal cannula which is her baseline Most likely due to acute COPD exacerbation in the setting of CHF and continued tobacco abuse. CTA negative for acute abnormalities. Denies any exposure to anybody with COVID-19 infection. COVID-19 negative. Wast started on IV steroids, LAMA, LABA, ICS, BiPAP, duo nebs, flutter valve, incentive spirometry, pulmonary toileting. Encourage ambulation and use of incentive spirometry. Patient will greatly benefit from outpatient follow-up with pulmonology and nocturnal polysomnography and CPAP at home. (2) Acute congestive heart failure Denied any history of CAD. Denies any anginal symptoms. History of CHF likely due to pulmonary hypertension and chronic atrial fibrillation. 2D echo 11/23/2019. LVEF 65 to 70%. Suboptimal echo due to body habitus. Continue cardiac diet, strict ins and outs, daily weight, diuretics. (3) Hypertension Resumed home meds. Adjust meds as needed. Outpatient PCP follow-up. (4) Chronic Atrial fibrillation History of chronic persistent atrial fibrillation. Rate controlled. Anticoagulated. Resumed home meds. Outpatient PCP and cardiology follow-up. (5) Tobacco use disorder, severe, dependence Counseled on quitting. NicoDerm patch will be provided. (6) Acute exacerbation of chronic obstructive pulmonary disease History of oxygen dependent COPD with THANH. Plan as per #1. (7) Obstructive sleep apnea On home CPAP. Nocturnal CPAP. Weight loss recommended. (8) Obesity BMI 36.6. Diet and lifestyle modification recommended. Physical Exam Vital Signs: Temp Pulse Resp BP Pulse Ox 97.9 F 87 16 131/67 H 95 08/04/20 09:55 08/04/20 09:55 08/04/20 09:55 08/04/20 09:55 08/04/20 09:55 Intake & Output 08/03/20 08/04/20 08/05/20 06:59 06:59 06:59 Intake Total 1040 2608 Output Total 1800 2110 Balance -760 498 Weight 98.1 kg 96.2 kg General appearance: PRESENT: no acute distress, obese, well-developed, well- nourished Neck exam: ABSENT: carotid bruit, JVD, lymphadenopathy, thyromegaly Respiratory exam: PRESENT: clear to auscultation emerson. ABSENT: rales, rhonchi, wheezes Cardiovascular exam: PRESENT: irregular rhythm. ABSENT: diastolic murmur, rubs, systolic murmur GI/Abdominal exam: PRESENT: normal bowel sounds, soft. ABSENT: distended, guarding, mass, organolmegaly, rebound, tenderness Neurological exam: PRESENT: alert, awake, oriented to person, oriented to place, oriented to time, oriented to situation, CN II-XII grossly intact. ABSENT: motor sensory deficit Results Laboratory Results: WBC 7.3 10^3/uL (4.0-10.5) 08/02/20 05:53 RBC 4.05 10^6/uL (3.72-5.28) 08/02/20 05:53 Hgb 11.6 g/dL (12.0-15.5) L 08/02/20 05:53 Hct 36.1 % (36.0-47.0) 08/02/20 05:53 MCV 89 fl (80-97) 08/02/20 05:53 MCH 28.6 pg (27.0-33.4) 08/02/20 05:53 MCHC 32.1 g/dL (32.0-36.0) 08/02/20 05:53 RDW 15.0 % (11.5-14.0) H 08/02/20 05:53 Plt Count 228 10^3/uL (150-450) 08/02/20 05:53 Lymph % (Auto) 20.1 % (13-45) 08/02/20 05:53 Oliver % (Auto) 11.5 % (3-13) 08/02/20 05:53 Eos % (Auto) 0.4 % (0-6) 08/02/20 05:53 Baso % (Auto) 0.7 % (0-2) 08/02/20 05:53 Absolute Neuts (auto) 4.9 10^3/uL (1.7-8.2) 08/02/20 05:53 Absolute Lymphs (auto) 1.5 10^3/uL (0.5-4.7) 08/02/20 05:53 Absolute Monos (auto) 0.8 10^3/uL (0.1-1.4) 08/02/20 05:53 Absolute Eos (auto) 0.0 10^3/uL (0.0-0.6) 08/02/20 05:53 Absolute Basos (auto) 0.1 10^3/uL (0.0-0.2) 08/02/20 05:53 Seg Neutrophils % 67.3 % (42-78) 08/02/20 05:53 PT 14.1 SEC (11.4-15.4) 07/31/20 06:16 INR 1.07 07/31/20 06:16 VBG pH 7.36 (7.30-7.42) 08/04/20 04:56 VBG pCO2 59.1 mmHg (35-63) 08/04/20 04:56 VBG HCO3 32.4 mmol/L (20-32) H 08/04/20 04:56 VBG Base Excess 5.3 mmol/L 08/04/20 04:56 Sodium 132.4 mmol/L (137-145) L 08/04/20 04:56 Potassium 4.7 mmol/L (3.6-5.0) 08/04/20 04:56 Chloride 94 mmol/L (98-107) L 08/04/20 04:56 Carbon Dioxide 35 mmol/L (22-30) H 08/04/20 04:56 Anion Gap 3 (5-19) L 08/04/20 04:56 BUN 23 mg/dL (7-20) H 08/04/20 04:56 Creatinine 0.58 mg/dL (0.52-1.25) 08/04/20 04:56 Est GFR ( Amer) > 60 (>60) 08/04/20 04:56 Est GFR (MDRD) Non-Af > 60 (>60) 08/04/20 04:56 Glucose 79 mg/dL (75-110) 08/04/20 04:56 POC Glucose 109 mg/dL (70-110) 07/31/20 07:01 Hemoglobin A1c % 4.9 % (4.7-6.0) 08/01/20 04:22 Lactic Acid 1.8 mmol/L (0.7-2.1) 08/01/20 00:20 Calcium 8.8 mg/dL (8.4-10.2) 08/04/20 04:56 Magnesium 2.1 mg/dL (1.6-2.3) 08/01/20 04:22 Total Bilirubin 0.4 mg/dL (0.2-1.3) 08/02/20 05:53 Direct Bilirubin 0.1 mg/dL (0.0-0.4) 08/02/20 05:53 Neonat Total Bilirubin Not Reportable 08/02/20 05:53 Neonat Direct Bilirubin Not Reportable 08/02/20 05:53 Neonat Indirect Bili Not Reportable 08/02/20 05:53 AST 15 U/L (14-36) 08/02/20 05:53 ALT 6 U/L (<35) 08/02/20 05:53 Alkaline Phosphatase 88 U/L (38-126) 08/02/20 05:53 Troponin I < 0.012 ng/mL 07/31/20 06:16 NT-Pro-B Natriuret Pep 1640 pg/mL (<125) H 07/31/20 06:16 Total Protein 5.6 g/dL (6.3-8.2) L 08/02/20 05:53 Albumin 3.0 g/dL (3.5-5.0) L 08/02/20 05:53 Urine Color VIVIAN 07/31/20 06:16 Urine Appearance SLIGHTLY-CLOUDY 07/31/20 06:16 Urine pH 6.0 (5.0-9.0) 07/31/20 06:16 Ur Specific [place] 1.025 07/31/20 06:16 Urine Protein >=500 mg/dL (NEGATIVE) H 07/31/20 06:16 Urine Glucose (UA) NEGATIVE mg/dL (NEGATIVE) 07/31/20 06:16 Urine Ketones NEGATIVE mg/dL (NEGATIVE) 07/31/20 06:16 Urine Blood NEGATIVE (NEGATIVE) 07/31/20 06:16 Urine Nitrite (Reflex) NEGATIVE (NEGATIVE) 07/31/20 06:16 Urine Bilirubin NEGATIVE (NEGATIVE) 07/31/20 06:16 Urine Urobilinogen 2.0 mg/dL (<2.0) H 07/31/20 06:16 Leukocyte Esterase Rfl NEGATIVE (NEGATIVE) 07/31/20 06:16 Urine RBC (Auto) 3 /HPF 07/31/20 06:16 U Hyaline Cast (Auto) 11 /LPF 07/31/20 06:16 Urine Bacteria (Auto) TRACE /HPF 07/31/20 06:16 Urine WBC (Reflex) 4 /HPF 07/31/20 06:16 Squamous Epi Cells Auto 9 /HPF 07/31/20 06:16 Urine Mucus (Auto) FEW /LPF 07/31/20 06:16 Urine Ascorbic Acid NEGATIVE (NEGATIVE) 07/31/20 06:16 COVID-19 Source See comment 07/31/20 09:50 COVID-19 (REZA) Not Detected (Not Detect) 07/31/20 09:50 07/31/20 06:16 Troponin I < 0.012 NT-Pro-B Natriuret Pep 1640 H Impressions: Chest X-Ray 07/31/20 06:49 IMPRESSION: 1. Suspect scarring and/or atelectasis in the right perihilar region and right inferior hemithorax. 2. Otherwise, unremarkable portable chest. Abdomen/Pelvis CT 07/31/20 07:39 IMPRESSION: No acute findings. Stroke Is this a Stroke Patient?: No Acute Heart Failure Is this a Heart Failure Patient?: No
== END 2020-08-04 13:58 | disposition home or self-care (01) | DRG 189 ==
LOC: ER 06:10 → INTOOBSV 12:04 → EH 12:04 → 3N 20:54 → 4N 08-01 11:53 → OBSVTOIN 08-02 09:13
PROVIDERS: ADMIT Internal Medicine; ATTEND Internal Medicine
PROC: 5A09357 Assistance with Respiratory Ventilation, Less than 24 Consecutive Hours, Continuous Positive Airway Pressure (ICD-10-PCS; principal; 2020-07-31)
DX: J96.01 Acute respiratory failure with hypoxia (principal); I50.43 Acute on chronic combined systolic (congestive) and diastolic (congestive) heart failure; J44.1 Chronic obstructive pulmonary disease with (acute) exacerbation; I48.20 Chronic atrial fibrillation, unspecified; I11.0 Hypertensive heart disease with heart failure; J96.02 Acute respiratory failure with hypercapnia; F17.210 Nicotine dependence, cigarettes, uncomplicated; I25.10 Atherosclerotic heart disease of native coronary artery without angina pectoris; G47.33 Obstructive sleep apnea (adult) (pediatric); E66.9 Obesity, unspecified; E11.9 Type 2 diabetes mellitus without complications; E03.9 Hypothyroidism, unspecified; K21.9 Gastro-esophageal reflux disease without esophagitis; F41.9 Anxiety disorder, unspecified; F42.9 Obsessive-compulsive disorder, unspecified; F31.9 Bipolar disorder, unspecified; Z99.81 Dependence on supplemental oxygen; Z99.89 Dependence on other enabling machines and devices; Z86.718 Personal history of other venous thrombosis and embolism; Z79.899 Other long term (current) drug therapy; Z79.82 Long term (current) use of aspirin; Z68.36 Body mass index [BMI] 36.0-36.9, adult; Z20.828 Contact with and (suspected) exposure to other viral communicable diseases; Z23 Encounter for immunization
CPT/HCPCS: 36415; 71045; 74177; 80048; 80053; 81001; 82803; 82962; 83036; 83605; 83735; 83880; 84484; 85025; 85610; 87040; 87635; 93005; 93010; 94640; 94660; 96365; 96366; 96375; 99285; C9803; G0378; J1956; J2930; J3490